=== PATIENT | male | born 1940 | race Caucasian/White ===

== ENCOUNTER 2018-01-11 06:55 | Inpatient (IN) ==
[2018-01-11] MEDS ORDERED: Nitroglycerin 0.4 MG TAB.SUBL SL ONE (07:08)
[2018-01-11] MEDS ORDERED: Aspirin 81 MG TAB.CHEW PO ONE (07:08)
[2018-01-11] MEDS ORDERED: 0.9 % Sodium Chloride 1,000 ML IVC ONE (07:10)
[2018-01-11] MEDS ORDERED: Ondansetron 4 MG/2 ML VIAL IVP ONE (07:10)
--- NOTE | 2018-01-11 07:14 | Emergency Department Note ---
Disposition Clinical Impression: Non-ST elevation HI (NSTEMI), COPD exacerbation Diarrhea Qualifiers: Diarrhea type: unspecified type Qualified Code(s): R19.7 - Diarrhea, unspecified Disposition: Admitted As Inpatient Condition: Fair Referrals: Margarito Abarca MD [Primary Care Provider] - Forms: ED Satisfaction Letter Time of Disposition: 09:33 General Adult HPI - General Chief complaint: ED Chest Pain Stated complaint: SOB Time Seen by Provider: 01/11/18 06:57 Source: patient, family Limitations: no limitations Nursing Notes Reviewed: Yes Vital Signs Reviewed: Yes - History of Present Illness HPI Narrative: Alert and oriented 77-year-old male presents to the emergency department for evaluation of chest pain, shortness of breath, nonproductive cough, generalized weakness, nausea, and diarrhea. He states that he has had intermittent episodes of substernal chest pain for the last 2 weeks however this became markedly worse yesterday evening into this morning. He describes the pain as a pressure and rated a 5 out of 10 on a 10 point scale. He denies any radiation or migration of this chest pain. This chest pain is made worsened with exertion and is somewhat alleviated with rest. He denies any known cardiac history. He denies any hemoptysis however states that the pain is somewhat worsened with deep inspiration. He has also had a nonproductive cough for the past 2-3 weeks. He was initially seen by his primary care provider and treated for a COPD exacerbation with both IM antibiotics and oral antibiotics. Shortly thereafter, he developed frequent loose stools. He presented to his PCP again, he began him on Flagyl however did not obtain a stool culture. He describes up to 10 episodes of loose stools per day. He denies any blood or mucus in the stools. He denies any associated abdominal pain but does complain of nausea. He denies any vomiting. He complains of generalized weakness but attributes this to possible dehydration from the multiple episodes of loose stools per day. Onset (ago): day(s) Location: chest Radiation: non-radiation Pain Severity: moderate Pain Scale: 5 Quality: other (pressure) Consistency: Worsening Improves with: nothing Worsens with: other (exertion) Associated symptoms: Reports: chest pain, cough, fever/chills (subjective), nausea/vomiting (nausea without vomiting), shortness of breath, weakness ( generalized), other (diarrhea) Treatments Prior to Arrival: other (Flagyl) - Related Data Home Medications Medication Instructions Recorded Confirmed Albuterol Sulfate [Proventil Hfa] 10/15/15 Aspirin [Adult Low Dose Aspirin EC] 81 mg PO DAILY 10/15/15 10/15/15 Budesonide/Formoterol 80/4.5 2 puff IH 10/15/15 [Symbicort 80/4.5] Ipratropium/Albuterol Neb [Duoneb] 10/15/15 Losartan Potassium [Cozaar] 10/15/15 Metoprolol [Lopressor] 10/15/15 Simvastatin [Zocor] 10/15/15 Vitamin D3/Folic Acid [Ortho D 10/15/15 3,775 Unit-1 mg Cap] Albuterol Sulfate [Proventil Hfa] 1 puff IH BID PRN 01/11/18 01/11/18 Aspirin [Lo-Dose Aspirin EC] 81 mg PO DAILY 01/11/18 01/11/18 Ipratropium/Albuterol Neb [Duoneb] 3 ml IH BID 01/11/18 01/11/18 Losartan Potassium [Cozaar] 50 mg PO DAILY 01/11/18 01/11/18 Metoprolol Succinate [Toprol Xl] 50 mg PO BID 01/11/18 01/11/18 Simvastatin [Zocor] 40 mg PO HS 01/11/18 01/11/18 Previous Rx's Medication Instructions Recorded Azithromycin [Zithromax] 250 mg PO Q24H #4 tablet 10/15/15 OxyCODONE/APAP 5/325 [Percocet 1 each PO Q8HR PRN #14 tablet 10/15/15 5/325 MG] predniSONE [Prednisone] 60 mg PO DAILY 5 Days tablet 10/15/15 Allergies Allergy/AdvReac Type Severity Reaction Status Date / Time No Known Allergies Allergy Verified 10/15/15 13:22 All systems ED: reviewed and negative except as stated. Constitutional: Reports: as per HPI, weakness (Generalized). Denies: fever, chills, weight change Eyes: Denies: eye pain, eye discharge, vision change ENT ED: Denies: ear pain, throat pain, dental pain, hearing loss, epistaxis, congestion, dysphagia Cardiovascular: Reports: as per HPI, chest pain, dyspnea on exertion. Denies: palpitations, edema, syncope Respiratory: Reports: as per HPI, cough, dyspnea, sputum production. Denies: wheezes, hemoptysis, stridor Gastrointestinal: Reports: as per HPI, nausea, diarrhea. Denies: abdominal pain , vomiting, constipation, hematemesis, melena, hematochezia Genitourinary: Denies: urgency, dysuria, frequency, hematuria Musculoskeletal: Denies: back pain, neck pain, arthralgia, myalgia Integumentary: Denies: rash, abrasion, lesions Neurological: Denies: headache, weakness, numbness, paresthesias, confusion, abnormal gait, vertigo Psychiatric: Denies: anxiety, depression, suicidal thoughts, homicidal thoughts , auditory hallucinations, visual hallucinations Endocrine: Denies: fatigue Hematological/Lymphatic: Denies: easy bleeding, easy bruising Allergic/Immunologic: Denies: facial swelling, urticaria Past Medical History - Past Medical History Attestation: Yes The following information was validated with the patient. Source: patient, nursing notes reviewed Medical history: Reports: hyperlipidemia, hypertension - Social History Smoking Status: Never smoker Smokeless Tobacco Status: No Alcohol use: Reports: occasionally Drug use: Reports: none Physical Exam - General Limitations: no limitations General appearance: alert, in no apparent distress - Head Head exam: atraumatic, normocephalic, normal inspection - Eye Eye exam: Present: normal appearance, PERRL, EOMI. Absent: nystagmus - ENT ENT exam: mucous membranes moist - Neck Neck exam: Present: normal inspection, full ROM, trachea midline - Chest Chest inspection: Present: normal inspection, symmetric chest wall rise - Respiratory Respiratory exam: Present: other (Lungs sounds coarse to auscultation, left lung base). Absent: respiratory distress, wheezes, stridor, accessory muscle use, prolonged expiratory phase - Cardiovascular Cardiovascular exam: Present: regular rate, normal rhythm, normal heart sounds - Abdominal Exam Abdominal exam: Present: soft, tenderness, hyperactive bowel sounds. Absent: distention, guarding, rebound, rigidity, trauma, mass, pulsatile mass Abdominal tenderness: Present: diffuse, moderate - Extremities Exam Extremities exam: Present: normal inspection, full ROM. Absent: tenderness, pedal edema - Neurological Exam Neurological exam: Present: alert, oriented X3 - Psychiatric Psychiatric exam: Present: normal affect, normal mood - Skin Skin exam: Present: warm, dry, intact, normal color. Absent: rash Course Course Narrative: 0850: I discussed this patient's case with Dr. Hernandez, ED attending. Dr. Hernandez has had [id number] evaluation with the patient, reviewed his laboratory and radiology results. He recommends initiating IV vancomycin and Zosyn for a COPD exacerbation, as the patient has failed outpatient therapy. 0925: I spoke with Dr. Cedeño, of the hospitalist services accepted the patient for admission to the hospitalist care. - Reevaluation(s) Reevaluation #1: The patient states significant improvement in pain after the administration of nitroglycerin. He now rates his pain a 2 out of 10 on a 10 point scale compared to his 5 out of 10 upon arrival. Time: 08:42 Vital Signs Temperature 99.1 F 01/11/18 07:01 Pulse Rate 121 01/11/18 07:01 Respiratory Rate 20 01/11/18 07:01 Blood Pressure 144/84 01/11/18 07:01 O2 Sat by Pulse Oximetry 97 01/11/18 07:01 Temperature 99.1 F 01/11/18 07:01 Pulse Rate 96 01/11/18 08:30 Respiratory Rate 18 01/11/18 08:30 Blood Pressure 116/76 01/11/18 08:30 O2 Sat by Pulse Oximetry 98 01/11/18 08:30 Oxygen Delivery Oxygen Delivery Nasal Cannula Medical Decision Making - Medical Records Medical records reviewed: Yes I reviewed the patient's medical records. - Lab Data Lab results reviewed: Yes I reviewed the patient's lab results. Lab results narrative: Laboratory Last Values WBC 15.4 K/mcL (4.3-11.1) H 01/11/18 07:25 RBC 4.59 M/mcL (4.19-5.50) 01/11/18 07:25 Hgb 13.4 g/dL (12.9-16.9) 01/11/18 07:25 Hct 40.8 % (37.5-50.1) 01/11/18 07:25 MCV 88.9 fL (83.0-100.0) 01/11/18 07:25 MCH 29.2 pg (28.0-33.3) 01/11/18 07:25 MCHC 32.8 g/dL (31.6-35.5) 01/11/18 07:25 RDW 13.6 % (11.5-14.5) 01/11/18 07:25 Plt Count 203 K/mcL (140-400) 01/11/18 07:25 MPV 9.8 fL (9.4-12.4) 01/11/18 07:25 Immature Gran % 0.5 % (0-4) 01/11/18 07:25 Seg Neutrophils % 82.4 % 01/11/18 07:25 Lymphocytes % 6.5 % 01/11/18 07:25 Monocytes % 10.3 % 01/11/18 07:25 Eosinophils % 0.1 % 01/11/18 07:25 Basophils % 0.2 % 01/11/18 07:25 Neutrophils # 12.7 K/mcL (1.6-8.9) H 01/11/18 07:25 Lymphocytes # 1.0 K/mcL (0.6-4.6) 01/11/18 07:25 Monocytes # 1.6 K/mcL (0.0-1.3) H 01/11/18 07:25 Eosinophils # 0.0 K/mcL (0.0-0.6) 01/11/18 07:25 Basophils # 0.0 K/mcL (0.0-0.2) 01/11/18 07:25 PT 12.3 Seconds (9.4-12.1) H 01/11/18 07:08 INR 1.1 01/11/18 07:08 APTT 30.3 Seconds (26.0-36.0) 01/11/18 07:08 D-Dimer 894 ng/mLFEU (0-500) H 01/11/18 07:08 Sodium 134 mEq/L (136-145) L 01/11/18 07:09 Potassium 3.7 mEq/L (3.5-5.1) 01/11/18 07:09 Chloride 105 mEq/L (98-107) 01/11/18 07:09 Carbon Dioxide 23 mEq/L (23-29) 01/11/18 07:09 BUN 12 mg/dL (8-23) 01/11/18 07:09 Creatinine 1.05 mg/dL (0.70-1.30) 01/11/18 07:09 Est GFR ( Amer) > 60 (> 60) 01/11/18 07:09 Est GFR (Non-Af Amer) > 60 (> 60) 01/11/18 07:09 BUN/Creatinine Ratio 11 (6-26) 01/11/18 07:09 Glucose 132 mg/dL (70-105) H 01/11/18 07:09 Calculated Osmolality 280 (280-300) 01/11/18 07:09 Lactic Acid 1.0 mmol/L (0.5-2.2) 01/11/18 07:05 Calcium 9.0 mg/dL (8.6-10.3) 01/11/18 07:09 Total Bilirubin 0.5 mg/dL (0.3-1.0) 01/11/18 07:09 AST 13 Units/L (13-39) 01/11/18 07:09 ALT 13 Units/L (7-52) 01/11/18 07:09 Alkaline Phosphatase 65 Units/L (34-104) 01/11/18 07:09 Troponin I 0.10 ng/mL (< 0.04) H* 01/11/18 07:09 B-Natriuretic Peptide 40 pg/mL (Less than 100) 01/11/18 07:08 Serum Total Protein 6.7 g/dL (6.4-8.9) 01/11/18 07:09 Albumin 3.9 g/dL (3.5-5.7) 01/11/18 07:09 Globulin 2.8 g/dL (2.4-3.5) 01/11/18 07:09 Albumin/Globulin Ratio 1.4 (1.1-2.2) 01/11/18 07:09 Lipase 16 Units/L (11-82) 01/11/18 07:09 Result diagrams: 01/11/18 07:25 01/11/18 07:09 Lab Results 01/11/18 01/11/18 01/11/18 Range/Units 07:05 07:08 07:08 WBC (4.3-11.1) K/mcL RBC (4.19-5.50) M/mcL Hgb (12.9-16.9) g/dL Hct (37.5-50.1) % MCV (83.0-100.0) fL MCH (28.0-33.3) pg MCHC (31.6-35.5) g/dL RDW (11.5-14.5) % Plt Count (140-400) K/mcL MPV (9.4-12.4) fL Immature Gran % (0-4) % Seg Neutrophils % % Lymphocytes % % Monocytes % % Eosinophils % % Basophils % % Neutrophils # (1.6-8.9) K/mcL Lymphocytes # (0.6-4.6) K/mcL Monocytes # (0.0-1.3) K/mcL Eosinophils # (0.0-0.6) K/mcL Basophils # (0.0-0.2) K/mcL PT 12.3 H (9.4-12.1) Seconds INR 1.1 APTT 30.3 (26.0-36.0) Seconds D-Dimer 894 H (0-500) ng/mLFEU Sodium (136-145) mEq/L Potassium (3.5-5.1) mEq/L Chloride (98-107) mEq/L Carbon Dioxide (23-29) mEq/L BUN (8-23) mg/dL Creatinine (0.70-1.30) mg/dL Est GFR ( Amer) (> 60) Est GFR (Non-Af Amer) (> 60) BUN/Creatinine Ratio (6-26) Glucose (70-105) mg/dL Calculated Osmolality (280-300) Lactic Acid 1.0 (0.5-2.2) mmol/L Calcium (8.6-10.3) mg/dL Total Bilirubin (0.3-1.0) mg/dL AST (13-39) Units/L ALT (7-52) Units/L Alkaline Phosphatase (34-104) Units/L Troponin I (< 0.04) ng/mL B-Natriuretic Peptide 40 (Less than 100) pg/mL Serum Total Protein (6.4-8.9) g/dL Albumin (3.5-5.7) g/dL Globulin (2.4-3.5) g/dL Albumin/Globulin Ratio (1.1-2.2) Lipase (11-82) Units/L 01/11/18 01/11/18 Range/Units 07:09 07:25 WBC 15.4 H (4.3-11.1) K/mcL RBC 4.59 (4.19-5.50) M/mcL Hgb 13.4 (12.9-16.9) g/dL Hct 40.8 (37.5-50.1) % MCV 88.9 (83.0-100.0) fL MCH 29.2 (28.0-33.3) pg MCHC 32.8 (31.6-35.5) g/dL RDW 13.6 (11.5-14.5) % Plt Count 203 (140-400) K/mcL MPV 9.8 (9.4-12.4) fL Immature Gran % 0.5 (0-4) % Seg Neutrophils % 82.4 % Lymphocytes % 6.5 % Monocytes % 10.3 % Eosinophils % 0.1 % Basophils % 0.2 % Neutrophils # 12.7 H (1.6-8.9) K/mcL Lymphocytes # 1.0 (0.6-4.6) K/mcL Monocytes # 1.6 H (0.0-1.3) K/mcL Eosinophils # 0.0 (0.0-0.6) K/mcL Basophils # 0.0 (0.0-0.2) K/mcL PT (9.4-12.1) Seconds INR APTT (26.0-36.0) Seconds D-Dimer (0-500) ng/mLFEU Sodium 134 L (136-145) mEq/L Potassium 3.7 (3.5-5.1) mEq/L Chloride 105 (98-107) mEq/L Carbon Dioxide 23 (23-29) mEq/L BUN 12 (8-23) mg/dL Creatinine 1.05 (0.70-1.30) mg/dL Est GFR ( Amer) > 60 (> 60) Est GFR (Non-Af Amer) > 60 (> 60) BUN/Creatinine Ratio 11 (6-26) Glucose 132 H (70-105) mg/dL Calculated Osmolality 280 (280-300) Lactic Acid (0.5-2.2) mmol/L Calcium 9.0 (8.6-10.3) mg/dL Total Bilirubin 0.5 (0.3-1.0) mg/dL AST 13 (13-39) Units/L ALT 13 (7-52) Units/L Alkaline Phosphatase 65 (34-104) Units/L Troponin I 0.10 H* (< 0.04) ng/mL B-Natriuretic Peptide (Less than 100) pg/mL Serum Total Protein 6.7 (6.4-8.9) g/dL Albumin 3.9 (3.5-5.7) g/dL Globulin 2.8 (2.4-3.5) g/dL Albumin/Globulin Ratio 1.4 (1.1-2.2) Lipase 16 (11-82) Units/L - Radiology Data Radiology results reviewed: Yes I reviewed the patient's radiology results. Chest X-Ray 01/11/18 07:08 IMPRESSION: Hyperaeration with underlying COPD suspected, with mild interstitial linear change noted at the left lung base which could be related to chronic reticular change, though acute superimposed pneumonitis cannot be excluded. D/ / Geovani Cortez MD / Geovani Cortez MD Interpreting Provider: Geovani Cortez MD - EKG Data EKG #1 EKG attestation: Yes I reviewed and interpreted this EKG. EKG results narrative: EKG reviewed by Dr. Hernandez as well. EKG shows a sinus tachycardia at a rate of 120 bpm. PA interval 161, QRS duration 93, QT/QTc interval 314/385. No ectopy noted. No ST elevation.
[2018-01-11 07:41] LABS: Basophils % 0.2 %; Eosinophils % 0.1 %; Hematocrit 40.8 % (37.5-50.1); Hemoglobin 13.4 g/dL (12.9-16.9); Immature Granulocytes % 0.5 % (0-4); Lymphocytes % 6.5 %; Mean Corpuscular HGB Conc 32.8 g/dL (31.6-35.5); Mean Corpuscular Hemoglobin 29.2 pg (28.0-33.3); Mean Corpuscular Volume 88.9 fL (83.0-100.0); Mean Platelet Volume 9.8 fL (9.4-12.4); Monocytes # 1.6 K/mcL (0.0-1.3); Monocytes % 10.3 %; Neutrophils # 12.7 K/mcL (1.6-8.9); Platelet Count 203 K/mcL (140-400); Red Blood Count 4.59 M/mcL (4.19-5.50); Red Cell Distribution Width 13.6 % (11.5-14.5); Segmented Neutrophils % 82.4 %
[2018-01-11 07:42] LABS: Alanine Aminotransferase 13 Units/L (7-52); Albumin 3.9 g/dL (3.5-5.7); Albumin/Globulin Ratio 1.4 (1.1-2.2); Alkaline Phosphatase 65 Units/L (34-104); Aspartate Amino Transferase 13 Units/L (13-39); BUN/Creatinine Ratio 11 (6-26); Bilirubin,Total 0.5 mg/dL (0.3-1.0); Blood Urea Nitrogen 12 mg/dL (8-23); Carbon Dioxide 23 mEq/L (23-29); Chloride 105 mEq/L (98-107); Globulin 2.8 g/dL (2.4-3.5); Glucose 132 mg/dL (70-105); Lipase 16 Units/L (11-82); Osmolality,Calculated 280 (280-300); Potassium 3.7 mEq/L (3.5-5.1); Sodium 134 mEq/L (136-145); Total Protein 6.7 g/dL (6.4-8.9); eGFR For African Americans > 60 (> 60); eGFR For Non-African Americans > 60 (> 60)
[2018-01-11 07:49] LABS: INR 1.1; Prothrombin Time 12.3 Seconds (9.4-12.1)
[2018-01-11 07:51] LABS: Activated Partial Thrombo Time 30.3 Seconds (26.0-36.0)
--- NOTE | 2018-01-11 08:02 | Emergency Department Note ---
START Narrative - START START: I examined this patient and my medical decision-making was reviewed with the PHARMACEUTICAL PHYSICIAN/PA/Advanced Practice Nurse/Resident Physician. I agree with the documented findings, disposition and treatment plan as described except to the extent set forth below. The patient does have shortness of breath and I did see him and spoke with him and his and he also has a history of recent diarrhea. He has been on antibiotics. C. difficile is ordered. Chest x-ray, labs are ordered. Medications and the patient will be admitted to the hospital. He does have history of COPD but does not use home oxygen. 0801 I did review the EKG showing sinus tachycardia with a rate of 120 bpm and inferior T-wave inversion. X-ray does show atelectasis versus infiltrate and patient will be treated with Zosyn and vancomycin as he has failed outpatient antibiotics. Patient will be admitted to the hospital. 0857 The patient's chest pain did recur and EKG is repeated and does show normal sinus rhythm with rate of [address] changes. Symptoms are concerning patient is being admitted for cardiac evaluation. 1253
[2018-01-11] MEDS ORDERED: Ipratropium/Albuterol Neb 3 ML IH ONE (08:06)
[2018-01-11] MEDS ORDERED: methylPREDNISolone 125 MG/2 ML VIAL IVP ONE (08:06)
[2018-01-11] MEDS ORDERED: Piperacillin/Tazobactam 3.375 GM in 0.9 % Sodium Chloride Mini Bag 100 ML IVPB ONE (08:49)
[2018-01-11 09:54] LABS: Bilirubin,Urine Negative (Negative); Blood,Urine Negative (Negative); Color,Urine Yellow (Yellow); Glucose,Urine (UA) Normal (Normal); Ketones,Urine Negative (Negative); Leukocyte Esterase,Urine Negative (Negative); Nitrite,Urine Negative (Negative); PH,Urine 5.5 pH Units (5.0-8.0); Protein,Urine Trace mg/dL (Neg-Trace); Urobilinogen,Urine Normal (Normal)
[2018-01-11 09:55] LABS: Clarity,Urine Clear (Clear)
[2018-01-11 09:57] LABS: Bacteria,Urine None Seen per hpf (None-Few); Hyaline Casts,Urine None Seen per lpf (None-Few); Squamous Epithelial Cell,Urine Many per lpf (None-Few); WBC,Urine 0-3 per hpf (0-3)
[2018-01-11] MEDS ORDERED: MetroNIDAZOLE 500 MG/100 ML 500 MG/100 ML BAG IVPB ONE (10:03)
[2018-01-11] MEDS: Vancomycin Oral Soln 250 MG/5 ML UDC PO SCH ×4 (10:42→21:56)
--- NOTE | 2018-01-11 11:10 | Internal Med History&Physical ---
Date of Encounter: 01/11/18 Time of Encounter: 10:53 Assessment and Plan (1) Non-ST elevation NE (NSTEMI) Current visit: Yes Status: Acute Patient to presented with exertional chest pain, CT showed severe artherolsclerosis, trop 0.10, will follow up trop, consult cardiology, (2) COPD exacerbation Current visit: Yes Status: Acute Patient has bilateral wheezing. failed Outpatient treatment will give IV Solu- Medrol and antibiotics (3) Bronchiolitis Current visit: Yes Status: Acute We will continue vancomycin and Zosyn, patient failed outpatient treatment (4) Liver lesion Current visit: Yes Status: Acute From CT scan will do MRI and MRCP (5) Lung nodule Current visit: Yes Status: Acute Need to [address] follow-up (6) Obesity (BMI 30.0-34.9) Current visit: Yes Status: Chronic (7) Diarrhea Current visit: Yes Status: Acute Patient did develop diarrhea after exposure to antibiotics, C diff is positive from ED, he failed oral flagyl from PCP. will treat with oral vancomycin Qualifiers: Diarrhea type: infectious Qualified Code(s): A09 - Infectious gastroenteritis and colitis, unspecified (8) Hypertension Current visit: Yes Status: Chronic Qualifiers: Hypertension type: essential hypertension Qualified Code(s): I10 - Essential (primary) hypertension Internal Medicine - H&P: HPI Chief complaint: chest pain Admitted From: Home Plans for Post Hospital Care: Home History of present illness: Mr. Barnard is a 77 year old male who has history of hypertension hyperlipidemia COPD not on home O2 presented to emergency room for 2 weeks of SOB and chest pain started last night. Chest pain started last evening, located in the middle chest, pressure-like 5 out of 10, exertional, any exercise make it worse and it lasted until this morning after he received a nitroglycerin. He also has dizziness diaphoresis. Patient denies history of CAD or stents but CT angiogram dose show severe atherosclerosis disease. Patient also has COPD exacerbation, over last a few weeks he has been more shortness of breath, associate with productive cough and white mucus. He received a course of oral steroids,and a course of antibiotics a months ago. Patient reported that he has on and off diarrhea for over last 2 weeks, but it got worse last night, he has been running stool every hour. His PCP started on flagyl a week ago. In the ED he had C. diff is positive. Patient will be admitted for C diff colitis. He also has elevated d-dimer, CT angio shows negative for PE, severe atherosclerosis. Broncholitis, and liver lesions and lung nodule 5.2 mm. Past Med Surg Social Fam HX - Past Medical History Medical history: hyperlipidemia, hypertension Psychiatric history: no psych history - Social History Smoking Status: Never smoker Smokeless Tobacco Status: No Alcohol use: occasionally Drug use: none Internal Medicine - H&P: Meds Albuterol Sulfate [Proventil Hfa] 10/15/15 [History] Aspirin [Adult Low Dose Aspirin EC] 81 mg PO DAILY 10/15/15 [History] Azithromycin [Zithromax] 250 mg PO Q24H #4 tablet 10/15/15 [Rx] Budesonide/Formoterol 80/4.5 [Symbicort 80/4.5] 2 puff IH 10/15/15 [History] Ipratropium/Albuterol Neb [Duoneb] 10/15/15 [History] Losartan Potassium [Cozaar] 10/15/15 [History] Metoprolol [Lopressor] 10/15/15 [History] OxyCODONE/APAP 5/325 [Percocet 5/325 MG] 1 each PO Q8HR PRN #14 tablet 10/15/15 [Rx] Simvastatin [Zocor] 10/15/15 [History] Vitamin D3/Folic Acid [Ortho D 3,775 Unit-1 mg Cap] 10/15/15 [History] predniSONE [Prednisone] 60 mg PO DAILY 5 Days tablet 10/15/15 [Rx] Albuterol Sulfate [Proventil Hfa] 1 puff IH BID PRN 01/11/18 [History] Aspirin [Lo-Dose Aspirin EC] 81 mg PO DAILY 01/11/18 [History] Ipratropium/Albuterol Neb [Duoneb] 3 ml IH BID 01/11/18 [History] Losartan Potassium [Cozaar] 50 mg PO DAILY 01/11/18 [History] Metoprolol Succinate [Toprol Xl] 50 mg PO BID 01/11/18 [History] Simvastatin [Zocor] 40 mg PO HS 01/11/18 [History] 3 Allergy/AdvReac Type Severity Reaction Status Date / Time No Known Allergies Allergy Verified 10/15/15 13:22 All Systems PM: A 10-system review of systems was performed and is negative for pertinent findings except as documented above in the HPI. - Constitutional Vitals: Temp Pulse Resp BP Pulse Ox 99.1 F 94 18 108/54 96 01/11/18 07:01 01/11/18 10:43 01/11/18 10:43 01/11/18 10:43 01/11/18 10:43 General appearance: Present: A&O X 3, pleasant, obese Exam: CONSTITUTIONAL: Patient appears as an age appropriate male well developed, in no acute distress. EYES Clear sclerae, bilateral pupils are equal, reactive to light and accommodation. Extraocular movements are intact RESPIRATORY: No accessory muscle use, bilateral clear to auscultation, no wheezing, no crackles/rales. CARDIOVASCULAR: Regular heart rate, normal S1 and S2, no murmurs GASTROINTESTINAL: bowel sounds present, soft, no tenderness. No hepatosplenomegaly. No bilateral CVA tenderness MUSCULOSKELETAL: Joints in normal range of motion, no clubbing, no edema, no cyanosis. Bilateral peripheral pulses 2+ LYMPHATIC no lymphadenopathy in neck, groin and axilla bilaterally, no thyromegaly. NEUROLOGIC: CN II to XII are grossly intact, no focal neurological deficit. Deep tendon reflexes 2+ bilaterally. Normal light touch sensation to upper and lower extremity PSYCHIATRIC: Oriented x3, with good insight, mood is euthymic. No hallucinations or delusions. SKIN: Skin warm and dry, no rashes, no open wound. Internal Med - H&P Results - Labs CBC & Chem 7: 01/11/18 07:25 01/11/18 07:09 Labs: Short CBC 01/11/18 Range/Units 07:25 WBC 15.4 H (4.3-11.1) K/mcL Hgb 13.4 (12.9-16.9) g/dL Hct 40.8 (37.5-50.1) % Plt Count 203 (140-400) K/mcL Neutrophils # 12.7 H (1.6-8.9) K/mcL BMP 01/11/18 07:09 Sodium 134 L Potassium 3.7 Chloride 105 Carbon Dioxide 23 BUN 12 Creatinine 1.05 Glucose 132 H Calcium 9.0 Cardiac Enzymes 01/11/18 Range/Units 07:09 Troponin I 0.10 H* (< 0.04) ng/mL Liver Function 01/11/18 Range/Units 07:09 Total Bilirubin 0.5 (0.3-1.0) mg/dL AST 13 (13-39) Units/L ALT 13 (7-52) Units/L Alkaline Phosphatase 65 (34-104) Units/L Albumin 3.9 (3.5-5.7) g/dL Urine 01/11/18 Range/Units 09:08 Urine Color Yellow (Yellow) Urine Clarity Clear (Clear) Urine pH 5.5 (5.0-8.0) pH Units Ur Specific [place] 1.030 H (1.010-1.025) Urine Protein Trace (Neg-Trace) mg/dL Urine Glucose (UA) Normal (Normal) mg/dL - Impressions ITS Impressions Chest X-Ray 01/11/18 07:08 IMPRESSION: Hyperaeration with underlying COPD suspected, with mild interstitial linear change noted at the left lung base which could be related to chronic reticular change, though acute superimposed pneumonitis cannot be excluded. D/ / Geovani Cortez MD / Geovani Cortez MD Interpreting Provider: Geovani Cortez MD Abdomen/Pelvis CT 01/11/18 10:00 IMPRESSION: No pulmonary emboli, thoracic or abdominal aortic aneurysm or dissection. Atherosclerotic disease is seen diffusely, with heavy coronary artery involvement. There is a small 5.2 mm pulmonary nodule in the right middle lobe, for which further follow-up is recommended based on Fleischner criteria below. Bronchial thickening seen in the lower lobes bilaterally with mild ground-glass change which can be seen with bronchiolitis/ atypical infection. No confluent area of pneumonia. Small subcapsular low-attenuation lesions seen in the liver measuring 1.1 cm. There is also a branching area of low attenuation seen in the left hepatic lobe as well as in the region of the caudate lobe. Uncertain if this may be related to focal biliary dilation. An obstructive process cannot be excluded. Recommend further evaluation with an MRI of the liver with and without contrast, as well as MRCP to exclude an underlying neoplastic process. Cholelithiasis. Benign adrenal adenoma for which no further follow-up is felt necessary. RECOMMENDATIONS: Fleischner Society guidelines for follow-up and management of incidentally detected pulmonary nodules: Single Solid Nodule: Nodule size less than 6 mm In a low-risk patient, no routine follow-up. In a high-risk patient, optional CT at 12 months. - Low risk patients include individuals with minimal or absent history of smoking and other known risk factors. - High risk patients include individuals with a history or smoking or known risk factors. Radiology 2017 http://pubs.rsna.org/doi/full/10.1148/radiol.[email or web address] D/ / Geovani Cortez MD / Geovani Cortez MD Interpreting Provider: Geovani Cortez MD Chest CTA 01/11/18 10:00 IMPRESSION: No pulmonary emboli, thoracic or abdominal aortic aneurysm or dissection. Atherosclerotic disease is seen diffusely, with heavy coronary artery involvement. There is a small 5.2 mm pulmonary nodule in the right middle lobe, for which further follow-up is recommended based on Fleischner criteria below. Bronchial thickening seen in the lower lobes bilaterally with mild ground-glass change which can be seen with bronchiolitis/ atypical infection. No confluent area of pneumonia. Small subcapsular low-attenuation lesions seen in the liver measuring 1.1 cm. There is also a branching area of low attenuation seen in the left hepatic lobe as well as in the region of the caudate lobe. Uncertain if this may be related to focal biliary dilation. An obstructive process cannot be excluded. Recommend further evaluation with an MRI of the liver with and without contrast, as well as MRCP to exclude an underlying neoplastic process. Cholelithiasis. Benign adrenal adenoma for which no further follow-up is felt necessary. RECOMMENDATIONS: Fleischner Society guidelines for follow-up and management of incidentally detected pulmonary nodules: Single Solid Nodule: Nodule size less than 6 mm In a low-risk patient, no routine follow-up. In a high-risk patient, optional CT at 12 months. - Low risk patients include individuals with minimal or absent history of smoking and other known risk factors. - High risk patients include individuals with a history or smoking or known risk factors. Radiology 2017 http://pubs.rsna.org/doi/full/10.1148/radiol.3867737533 D/ / Geovani Cortez MD / Geovani Cortez MD Interpreting Provider: Geovani Cortez MD
[2018-01-11] MEDS ORDERED: Naloxone 0.4 MG/ML INJ IVP PRN (11:31)
[2018-01-11] MEDS ORDERED: *HR* OxyCODONE/APAP 5/325 TABLET PO PRN (12:31)
--- NOTE | 2018-01-11 14:03 | Cardiology Consult Note ---
<Leyla Brady - Last Filed: 01/11/18 15:28> Date of Encounter: 01/11/18 Time of Encounter: 13:52 Assessment and Plan (1) Chest pain Current Visit: Yes Status: Acute Chest pain at rest, pressure like, non radiating, lasting hours, relieved by nitro. Admitted shortness of breath and diaphoresis. troponin 0.1, 0.06 01/11/2018 EKG demonstrated misplaced limb leads, t wave inversion in lateral leads SINCERE score 4 CTA: Atherosclerosis diffusely with heavy coronary artery involvement. No PE PMH: HTN, HLD, COPD Brother had WA at 74yo. Former smoker -Recommend [facility] tomorrow since he has atypical chest pain, risk factors for CAD, elevated troponin, atherosclerosis demonstrated by CTA. Will discuss with patient R/B/A for [facility] and see if they are agreeable. -NPO midnight -order echo -nitro as needed Qualifiers: Qualified Code(s): R07.9 - Chest pain, unspecified (2) Elevated troponin Current Visit: Yes Status: Acute troponin 0.1, 0.6 -continue to monitor (3) Diarrhea Current Visit: Yes Status: Acute Tested C.diff positive in ED. On antibiotics 1 month ago for COPD exac and then 2 weeks later developed watery diarrhea for which he was placed on flagyl and did not improve diarrhea. Failed treatment with flagyl, still has diarrhea. -started on oral vancomycin. management per primary team Qualifiers: Diarrhea type: infectious Qualified Code(s): A09 - Infectious gastroenteritis and colitis, unspecified (4) COPD exacerbation Current Visit: Yes Status: Acute Increased shortness of breath, coughing with sputum production History of COPD. Quit smoking 15yr ago. -currently being treated with zosyn and vancomycin. Management per primary team (5) Hypertension Current Visit: Yes Status: Chronic HTN. BP controlled. -will continue to monitor -continue asa, losartan, toprol, simvistatin Qualifiers: Hypertension type: essential hypertension Qualified Code(s): I10 - Essential (primary) hypertension Discussion w patient/family: The assessment and plan as outlined above was discussed with the patient and/or family members who expressed understanding and agreement. All questions were answered. Thank you for involving us in the care of your patient. Please call with any questions. History of Present Illness Consult date: 01/11/18 Requesting physician: Lita Cedeño Consult reason: NSTEMI Chief complaint: chest pain History of present illness: Mr. Barnard is a 77 year old male with PMH HTN, HLD, COPD who presented to [facility] complaining of chest pain that started yesterday evening while he was eating dinner. It was pressure like and did not radiate. He stated it came on suddenly and he became diaphoretic and short of breath. It was worsened with exertion and never went away until he decided to go to the ED at 4am. He was given nitro and it relieved the pain but it is still present minimally. He reports increased shortness of breath, coughing with sputum production, chills. He has never had chest pain before. He stated he is active golfing, house chores, working with wood. He quit smoking 15yr ago and has about 2-3 beers a week. His brother had an WA at 74yo. He denied having WA, PE/DVT, stress test, TTE. Noted, 1 month ago he went to [employer] [facility] due to increased shortness of breath and coughing concerning for COPD exacerbation and pneumonia so he was given 3 antibiotic shots and was told to return in 3 days for 2 more antibiotic shots. 2 weeks later he developed watery diarrhea multiple times a day and went to a different physician and was tested for C.diff and prescribed flagyl. He reports the diarrhea has not improved and he has watery diarrhea almost every hour. In the ED troponin 0.1. C.diff positive DDimer 894 CTA- negative for PE. Atherosclerosis diffusely with heavy coronary artery involvement. Past Med Surg Social Fam HX - Past Medical History Medical history: hyperlipidemia, hypertension Psychiatric history: no psych history - Social History Smoking Status: Never smoker Smokeless Tobacco Status: No Alcohol use: occasionally Drug use: none Medications and Allergies Albuterol Sulfate [Proventil Hfa] 10/15/15 [History] Aspirin [Adult Low Dose Aspirin EC] 81 mg PO DAILY 10/15/15 [History] Azithromycin [Zithromax] 250 mg PO Q24H #4 tablet 10/15/15 [Rx] Budesonide/Formoterol 80/4.5 [Symbicort 80/4.5] 2 puff IH 10/15/15 [History] Ipratropium/Albuterol Neb [Duoneb] 10/15/15 [History] Losartan Potassium [Cozaar] 10/15/15 [History] Metoprolol [Lopressor] 10/15/15 [History] OxyCODONE/APAP 5/325 [Percocet 5/325 MG] 1 each PO Q8HR PRN #14 tablet 10/15/15 [Rx] Simvastatin [Zocor] 10/15/15 [History] Vitamin D3/Folic Acid [Ortho D 3,775 Unit-1 mg Cap] 10/15/15 [History] predniSONE [Prednisone] 60 mg PO DAILY 5 Days tablet 10/15/15 [Rx] Albuterol Sulfate [Proventil Hfa] 1 puff IH BID PRN 01/11/18 [History] Aspirin [Lo-Dose Aspirin EC] 81 mg PO DAILY 01/11/18 [History] Ipratropium/Albuterol Neb [Duoneb] 3 ml IH BID 01/11/18 [History] Losartan Potassium [Cozaar] 50 mg PO DAILY 01/11/18 [History] Metoprolol Succinate [Toprol Xl] 50 mg PO BID 01/11/18 [History] Simvastatin [Zocor] 40 mg PO HS 01/11/18 [History] 3 Allergy/AdvReac Type Severity Reaction Status Date / Time No Known Allergies Allergy Verified 10/15/15 13:22 All Systems Review: The remainder of the systems were reviewed and are negative - Constitutional Constitutional: chills - EENT Eyes: no blurred vision - Cardiovascular Cardiovascular: chest pain at rest, chest pain with exertion, diaphoresis, orthopnea, no palpitations, no syncope - Gastrointestinal Gastrointestinal: diarrhea, nausea Physical Examination Vital Signs, Last 4 Hours Resp BP 01/11/18 12:55 20 122/72 General: Conversant, No Apparent Distress HEENT: Atraumatic, Mucus Membranes Moist Neck: No JVD Cardiac: Reg Rate and Rhythm, Normal S1 and S2 Lungs: Normal Breath Sounds, No Wheeze, Rales, Rhonchi Neuro: Alert and responsive Abdomen: Soft, Non-Tender Skin: No rashes noted on visualized skin Musculoskeletal: No Chest Wall Tenderness Extremities: No Edema Results 01/11/18 07:25 01/11/18 07:09 Consult Discharge Plan - Plan Referrals: Margarito Abarca MD [Primary Care Provider] - <Jerica Green - Last Filed: 01/11/18 17:02> Date of Encounter: 01/11/18 - Attending Attestation I stopped by to see patient twice - not in room. I have discussed the patient with the medical transport specialist. I will plan to discuss with patient the plan and examine him. Preliminarily recommendations - Presents with atypical chest discomfort after eating Elevated troponin 0.1 ECG changes laterally CTA demonstrates significant atherosclerotic burden in the coronary arteries Risk factors include male gender, HTN, HPL, FH, remote smoking. In this setting of NSTEMI, would recommend proceeding with LHC. Renal function is normal. Hgb/Plt acceptable. Recommend continuing heparin. Keep NPO. To discuss with patient in the AM. Assessment and Plan Discussion w patient/family: The assessment and plan as outlined above was discussed with the patient and/or family members who expressed understanding and agreement. All questions were answered. Thank you for involving us in the care of your patient. Please call with any questions. History of Present Illness History of present illness: Mr. Barnard is a 77 year old male All Systems Review: The remainder of the systems were reviewed and are negative Results 01/11/18 07:25 01/11/18 07:09 Lab Results 01/11/18 13:21 Troponin I 0.06 H*
[2018-01-11] MEDS: methylPREDNISolone 125 MG/2 ML VIAL IVP SCH ×3 (14:06→23:49)
[2018-01-11] MEDS: Budesonide/Formoterol 80/4.5 MDI IH SCH ×2 (14:31→22:39)
[2018-01-11] MEDS: Piperacillin/Tazobactam 3.375 GM in 0.9 % Sodium Chloride Mini Bag 100 ML IVPB SCH ×2 (18:03→23:49)
[2018-01-11] MEDS: Metoprolol XL (24 HR) Succ 50 MG TAB.ER.24H PO SCH (20:39)
[2018-01-11] MEDS ORDERED: Perflutren Lipid Microsphere 2 ML VIAL ONE (21:53)
[2018-01-11] MEDS: Ipratropium/Albuterol Neb 3 ML IH SCH (22:39)
[2018-01-12 02:12] LABS: Hemoglobin 12.1 g/dL (12.9-16.9); Mean Corpuscular HGB Conc 32.7 g/dL (31.6-35.5); Mean Corpuscular Volume 88.7 fL (83.0-100.0); Platelet Count 192 K/mcL (140-400); Red Blood Count 4.17 M/mcL (4.19-5.50); Red Cell Distribution Width 13.6 % (11.5-14.5)
[2018-01-12 02:26] LABS: BUN/Creatinine Ratio 13 (6-26); Blood Urea Nitrogen 15 mg/dL (8-23); Calcium 8.7 mg/dL (8.6-10.3); Carbon Dioxide 25 mEq/L (23-29); Chloride 106 mEq/L (98-107); Chol/HDL Ratio 3.1 (0-4.9); Cholesterol 169 mg/dL (< 200); Glucose 197 mg/dL (70-105); HDL Cholesterol 54 mg/dL (40-59); LDL Cholesterol,Calculated 104 mg/dL (0-99); Osmolality,Calculated 290 (280-300); Potassium 4.2 mEq/L (3.5-5.1); Sodium 137 mEq/L (136-145); Triglycerides 56 mg/dL (< 150); eGFR For African Americans > 60 (> 60); eGFR For Non-African Americans > 60 (> 60)
[2018-01-12] MEDS: methylPREDNISolone 125 MG/2 ML VIAL IVP SCH ×3 (05:25→17:48)
[2018-01-12] MEDS ORDERED: Aminoglycoside Consult 1 EACH MC ONE (09:41)
--- NOTE | 2018-01-12 10:02 | Internal Med Progress Note ---
Date of Encounter: 01/12/18 Time of Encounter: 10:01 - Assessment and plan (1) Non-ST elevation [place] (NSTEMI) Current Visit: Yes Status: Acute Assessment and plan: 1 no chest pain at this time, patient is waiting for left heart catheter today Cardiology has been consulted Continue cardiac monitoring Continue with aspirin beta gemam statin (2) Bronchiolitis Current Visit: Yes Status: Acute Assessment and plan: Presently appears stable lung sounds are clear continue with azithromycin we will taper down Solu-Medrol oxygen as needed Blood cultures were obtained--negative no growth Continue to monitor white count No fevers (3) COPD exacerbation Current Visit: No Status: Chronic Assessment and plan: Presently stable at this time no wheezing Oxygen saturations are stable-titrate oxygen as needed maintain SPO2 very 92% Continue with bronchodilators and steroids taper (4) Diarrhea Current Visit: Yes Status: Acute Assessment and plan: Patient developed diarrhea after exposure to antibiotics. C. difficile is positive from the ER. He failed outpatient oral Flagyl from his PCP. Continue to treat with oral vancomycin. Contact precautions-he has not had a stool since yesterday Qualifiers: Diarrhea type: infectious Qualified Code(s): A09 - Infectious gastroenteritis and colitis, unspecified (5) Liver lesion Current Visit: Yes Status: Acute Assessment and plan: Noted liver lesion on CT scan-LFTs within normal limits Abdominal MR I with and without contrast IMPRESSION: 1. Nonenhancing 1.2 cm lesion in segment IV of liver likely surgical sales representative of a cyst. 2. Focal intrahepatic biliary ductal dilation in the left liver. No obstructing mass identified. No choledocholithiasis. Consider choledochal cyst (type V) or stricture of the bile ducts. No gross obstructing mass. 3. Benign left adrenal adenoma. Follow-up as outpatient (6) Lung nodule Current Visit: Yes Status: Acute Assessment and plan: CT follow-up in 12 months per Fleischner Society guidelines (7) Hypertension Current Visit: No Status: Chronic Assessment and plan: Presently controlled we will continue with home medications Qualifiers: Hypertension type: essential hypertension Qualified Code(s): I10 - Essential (primary) hypertension (8) Obesity (BMI 30.0-34.9) Current Visit: Yes Status: Chronic Assessment and plan: Encourage lifestyle changes (9) DVT prophylaxis Current Visit: No Status: Chronic Assessment and plan: SCD - Subjective Interval history: Patient states that his belly is sore from BM, however he has not had any stool since yesterday. He has no CP. He is to go for heart cath today. - Constitutional Vitals: Temp Pulse Resp BP Pulse Ox 97.5 F L 84 16 137/74 97 01/12/18 07:39 01/12/18 07:39 01/12/18 07:39 01/12/18 07:39 01/12/18 07:39 General appearance: Present: A&O X 3, pleasant, obese - Head Head exam: Present: atraumatic, normocephalic - Eye Eye exam: Present: PERRL, conjuntiva pink, sclera anicteric Pupils: Present: PERRL - Neck Neck exam general surgery: Present: supple, trachea midline. Absent: lymphadenopathy - Respiratory Respiratory exam: Present: CTAB. Absent: accessory muscle use, rales, rhonchi, wheezes - Cardiovascular Cardiovascular exam: Present: RRR, +S1, +S2. Absent: diastolic murmur, gallop, rubs, systolic murmur - GI/Abdominal GI/Abdominal exam: Present: normal bowel sounds, soft, no peritoneal signs. Absent: distended, tenderness - Extremities Exam Extremities exam: Present: warm, radial pulses palpable and symmetrical. Absent : calf tenderness, cyanotic, pedal edema - Neurological Exam Neurological exam: Present: CN II-XII intact, oriented X3, no focal deficits. Absent: pronater drift, facial droop, speech deficit - Skin Skin exam: Present: dry, intact Internal Medicine: Result - Labs CBC & Chem 7: 01/12/18 01:34 01/12/18 01:34 Labs: Short CBC 01/12/18 Range/Units 01:34 WBC 15.0 H (4.3-11.1) K/mcL Hgb 12.1 L (12.9-16.9) g/dL Hct 37.0 L (37.5-50.1) % Plt Count 192 (140-400) K/mcL BMP 01/12/18 01:34 Sodium 137 Potassium 4.2 Chloride 106 Carbon Dioxide 25 BUN 15 Creatinine 1.12 Glucose 197 H Calcium 8.7 Cardiac Enzymes 01/11/18 01/11/18 01/12/18 Range/Units 13:21 19:24 01:34 Troponin I 0.06 H* 0.05 H* 0.04 H* (< 0.04) ng/mL - ABG Interpretation ABG results: PT/INR, D-dimer PT 12.3 Seconds (9.4-12.1) H 01/11/18 07:08 D-Dimer 894 ng/mLFEU (0-500) H 01/11/18 07:08 - Impressions Impressions Abdomen MRI 01/11/18 11:39 IMPRESSION: 1. Nonenhancing 1.2 cm lesion in segment IV of liver likely surgical sales representative of a cyst. 2. Focal intrahepatic biliary ductal dilation in the left liver. No obstructing mass identified. No choledocholithiasis. Consider choledochal cyst (type V) or stricture of the bile ducts. No gross obstructing mass. 3. Benign left adrenal adenoma. D/ / 01/11/2018 17:44:15 Familia Duncan MD / kalyani Interpreting Provider: Familia Duncan MD - Diagnostic Studies Other Images Additional comments: Foreign Body Localization X-Ray 01/11/18 00:00 IMPRESSION: No evidence of metallic foreign body within the orbits. D/ / Trae Chatterjee MD / Trae Chatterjee MD Interpreting Provider: Trae Chatterjee MD Chest X-Ray 01/11/18 07:08 IMPRESSION: Hyperaeration with underlying COPD suspected, with mild interstitial linear change noted at the left lung base which could be related to chronic reticular change, though acute superimposed pneumonitis cannot be excluded. D/ / Geovani Cortez MD / Geovani Cortez MD Interpreting Provider: Geoavni Cortez MD Abdomen/Pelvis CT 01/11/18 10:00 IMPRESSION: No pulmonary emboli, thoracic or abdominal aortic aneurysm or dissection. Atherosclerotic disease is seen diffusely with heavy coronary artery involvement. There is a small 5.2 mm pulmonary nodule in the right middle lobe for which further follow-up is recommended based on Fleischner criteria below. Bronchial thickening seen in the lower lobes bilaterally with mild ground-glass change which can be seen with bronchiolitis/atypical infection. No confluent area of pneumonia. Small subcapsular low-attenuation lesion seen in the liver measuring 1.1 cm. There is also a branching area of low attenuation seen in the left hepatic lobe as well as in the region of the caudate lobe. Uncertain if this may be related to focal biliary dilation. An obstructive process cannot be excluded. Recommend further evaluation with an MRI of the liver with and without contrast as well as MRCP to exclude an underlying neoplastic process. Cholelithiasis. Benign adrenal adenoma for which no further follow-up is felt necessary. RECOMMENDATIONS: Fleischner Society guidelines for follow-up and management of incidentally detected pulmonary nodules: Single Solid Nodule: Nodule size less than 6 mm In a low-risk patient, no routine follow-up. In a high-risk patient, optional CT at 12 months. - Low risk patients include individuals with minimal or absent history of smoking and other known risk factors. - High risk patients include individuals with a history or smoking or known risk factors. Radiology 2017 http://pubs.rsna.org/doi/full/10.1148/radiol.4217085336 D/ / 01/11/2018 10:56:38 Geovani Cortez MD / kalyani Interpreting Provider: Geovani Cortez MD Chest CTA 01/11/18 10:00 IMPRESSION: No pulmonary emboli, thoracic or abdominal aortic aneurysm or dissection. Atherosclerotic disease is seen diffusely with heavy coronary artery involvement. There is a small 5.2 mm pulmonary nodule in the right middle lobe for which further follow-up is recommended based on Fleischner criteria below. Bronchial thickening seen in the lower lobes bilaterally with mild ground-glass change which can be seen with bronchiolitis/atypical infection. No confluent area of pneumonia. Small subcapsular low-attenuation lesion seen in the liver measuring 1.1 cm. There is also a branching area of low attenuation seen in the left hepatic lobe as well as in the region of the caudate lobe. Uncertain if this may be related to focal biliary dilation. An obstructive process cannot be excluded. Recommend further evaluation with an MRI of the liver with and without contrast as well as MRCP to exclude an underlying neoplastic process. Cholelithiasis. Benign adrenal adenoma for which no further follow-up is felt necessary. RECOMMENDATIONS: Fleischner Society guidelines for follow-up and management of incidentally detected pulmonary nodules: Single Solid Nodule: Nodule size less than 6 mm In a low-risk patient, no routine follow-up. In a high-risk patient, optional CT at 12 months. - Low risk patients include individuals with minimal or absent history of smoking and other known risk factors. - High risk patients include individuals with a history or smoking or known risk factors. Radiology 2017 http://pubs.rsna.org/doi/full/10.1148/radiol.0166799708 D/ / 01/11/2018 10:56:38 Geovani Cortez MD / kalyani Interpreting Provider: Geovani Cortez MD Abdomen MRI 01/11/18 11:39 IMPRESSION: 1. Nonenhancing 1.2 cm lesion in segment IV of liver likely surgical sales representative of a cyst. 2. Focal intrahepatic biliary ductal dilation in the left liver. No obstructing mass identified. No choledocholithiasis. Consider choledochal cyst (type V) or stricture of the bile ducts. No gross obstructing mass. 3. Benign left adrenal adenoma. D/ / 01/11/2018 17:44:15 Familia Duncan MD / kalyani Interpreting Provider: Familia Duncan MD Echocardiogram 01/11/18 15:39 Impressions: LVEF 60-65%. Mild left ventricular diastolic dysfunction. Definity echo contrast was used. Normal right ventricular structure and function. No significant valvular dysfunction. No pulmonary hypertension. Left Ventricular Wall Motion: Rest Echo Findings The mid inferior lateral and basal inferior lateral hall were not visualized. All other wall segments showed normal motion. Findings: Study Quality * Technically sub-optimal due to body habitus. ECG Findings * Normal sinus rhythm. Left Ventricle * LVEF 60-65%. * Mild left ventricular diastolic dysfunction. * Normal LV chamber size, wall thickness and function. * Definity echo contrast was used. Right Ventricle * Normal right ventricular structure and function. Left Atrium * Normal left atrial size. Right Atrium * Normal right atrial size. Aortic Valve * No aortic regurgitation. * No aortic stenosis. * Aortic valve not well visualized. Mitral Valve * No mitral regurgitation. * Normal mitral valve structure. * No mitral stenosis. Tricuspid Valve * Tricuspid valve not well visualized. * Trace tricuspid regurgitation. * Estimated RA pressure is 3 mmHg. * Estimated RVSP is 32 mmHg. * No pulmonary hypertension. Pulmonic Valve * Pulmonic valve is not well visualized. * No pulmonic stenosis. * No pulmonic regurgitation. Pulmonary Artery * Pulmonary artery not well visualized. Aorta * Not optimally evaluated. Pericardium * There is no pericardial effusion present. Interatrial Septum * No evidence of PFO by color Doppler. IVC * The IVC is not dilated. Consult Discharge Plan - Plan Referrals: Margarito Abarca MD [Primary Care Provider] -
--- NOTE | 2018-01-12 10:21 | Event Note ---
Date of Encounter: 01/12/18 Time of Encounter: 08:00 - Cardiology Event Note Mr. Barnard denies recurrent chest pain last night. [facility] recommended due to elevated troponin, chest discomfort, and CT showing athersclerosis. [facility] R/B/A discussed and he agrees to proceed.
[2018-01-12] MEDS: Aspirin Enteric Coated 81 MG Tablet PO SCH (10:27)
[2018-01-12] MEDS: Metoprolol XL (24 HR) Succ 50 MG TAB.ER.24H PO SCH ×2 (10:27→20:58)
[2018-01-12] MEDS: Vancomycin Oral Soln 250 MG/5 ML UDC PO SCH ×4 (10:27→20:58)
[2018-01-12] MEDS: Piperacillin/Tazobactam 3.375 GM in 0.9 % Sodium Chloride Mini Bag 100 ML IVPB SCH ×3 (10:30→23:07)
[2018-01-12] MEDS: Budesonide/Formoterol 80/4.5 MDI IH SCH ×2 (10:50→20:15)
[2018-01-12] MEDS: Ipratropium/Albuterol Neb 3 ML IH SCH ×2 (10:51→20:15)
[2018-01-12] MEDS ORDERED: *HR* Heparin 10,000 UNIT/10 ML VIAL ONE ×2 (12:50→15:05)
[2018-01-12] MEDS ORDERED: Heparin 1,000 UNITS/500 mL 500 ML ONE ×2 (12:50→15:05)
[2018-01-12] MEDS ORDERED: Nitroglycerin 1,000 MCG/10 ML VIAL IV ONE ×2 (12:50→15:05)
[2018-01-12] MEDS ORDERED: 0.9 % Sodium Chloride 1,000 ML ONE ×3 (12:50→15:05)
[2018-01-12] MEDS ORDERED: ISOVUE-370 200 ML INFUS..BTL IV ONE ×2 (12:50→15:05)
--- NOTE | 2018-01-12 13:23 | Pre-Sedation Evaluation ---
Pre-sedation evaluation - Pre-sedation checklist Date of procedure: 01/12/18 Procedure: Left heart cath Recent Vitals: Last Vital Signs Temp 97.8 F 01/12/18 12:13 Pulse 85 01/12/18 12:13 Resp 16 01/12/18 12:13 BP 138/77 01/12/18 12:13 Pulse Ox 97 01/12/18 12:13 H&P (including ROS) documented in medical record: Yes Previous reaction to sedatives/anesthetics: No Dietary Status: NPO after Midnight Airway Assessment: Patient can open mouth completely, TMJ function normal Dentition: No loose teeth or bridges Possible difficult airway: No ASA Classification *see protocol: CLASS III-Severe systemic disease Plan of Care: Pt appropriate candidate for procedure/moderate/conscious sedation , Risks/benefits of procedure/sedation discussed w/ patient/family, If not NPO; Risk of intake outweiged by necessity to perform procedure
[2018-01-12] MEDS ORDERED: *HR* Midazolam HCl 2 MG/2 ML VIAL ONE ×3 (13:29→15:39)
--- NOTE | 2018-01-12 15:52 | Electrocardiograph Report ---
[address] [address] Test Date: 2018-01-11 Pat Name: Tian Barnard Department: 102 Room: 3B Gender: M Inside Account Representative: Rahul : 1940 Requested By: Martín Hernandez Order Number: [id number] Reading MD: Jerica Green Measurements Intervals [place] Rate: 86 P: 61 AL: 183 QRS: -59 QRSD: 85 T: -30 QT: 302 QTc: 345 Interpretive Statements SINUS RHYTHM WITH OCCASIONAL SUPRAVENTRICULAR PREMATURE COMPLEXES LEFT AXIS DEVIATION [QRS AXIS < -30] Electronically Signed On 01-12-2018 15:51:08 EDT by Jerica Green
--- NOTE | 2018-01-12 16:03 | Electrocardiograph Report ---
[address] [address] Test Date: 2018-01-11 Pat Name: Tian Barnard Department: 103 Room: 3B Gender: M Multicultural Manager: AKIN : 1940 Requested By: Aleksandr Carbone Order Number: [id number] Reading MD: Jerica Green Measurements Intervals [place] Rate: 120 P: -22 VA: 161 QRS: 125 QRSD: 93 T: -22 QT: 314 QTc: 385 Interpretive Statements SINUS TACHYCARDIA Electronically Signed On 01-12-2018 16:02:17 EDT by Jerica Green
[2018-01-12] MEDS ORDERED: *HR* Morphine 2 MG/ML SYRINGE ONE (16:12)
[2018-01-12] MEDS ORDERED: Nitroglycerin Spray 4.9 GM BOTTLE ONE (16:23)
--- NOTE | 2018-01-12 16:58 | Invasive Diagnostic Lab Proc ---
Name: Tian Barnard Kyle Date of Study: 01/12/2018 Date: 1940 Ht: 70.9in Medical Record#: [id number] Age: 77 Wt: 235.89lb Gender: Male BSA: 2.26 Order #: [id number] BMI: 33.02 Physicians Procedure Physician: Geovanny Hernández DO Referring MD: Referring MD: Staff Name Position Time In Sites, Blanquita RT (R) Monitor 01:31 PM Lisy Valdez RT Scrub 01:31 PM Manuel An RN Online Marketer 01:31 PM Indications Indication Non-Stemi Procedures Performed Procedure L HRT ARTERY/VENTRICLE ANGIO Pre-Procedure Checklist Pt not NPO for procedure and MD aware. Blood Pressure: 139/91 Rhythm: NSR Plan of Care Patient will tolerate the procedure without complications. Adequate level of comfort will be maintained. Hemodynamics will remain stable Patient will recover from procedure without complications. Respiratory function will be maintained. Cardiac rhythm will remain stable. Patient temperature will be maintained. Patient and/or family have verbalized understanding of the procedure. Patient Education Chief Complaint/Reason for Test: Cardiac Cath Developmental Category: Geriatric (65+ years) Developmentally Appropriate for Age: Yes Learning Barriers: None Education Needs: Procedure Education Method: Verbal Information Taught: Cardiac Cath Educational Evaluation: Able to repeat information Intravenous Access Time IV Size Location DC'd Fluid/Drip Rate Units RN 01:00 AM 20g 1 1/4" Patent On Arrival Rt Antecubital 0.9NaCl 25 ml/hr Manuel An RN Allergies No Known Allergies Vital Signs Time BP (mmHg) HR (bpm) O2 Sat. RR (bpm) LOC 01:32 PM / % 5 = Fully awake and oriented or at pre-proc level 01:52 PM 148 / 81 83 96 % 13 02:00 PM 145 / 85 81 95 % 17 4 = Oriented but drowsy 02:15 PM 139 / 79 80 94 % 22 4 = Oriented but drowsy 02:30 PM 140 / 84 83 93 % 19 4 = Oriented but drowsy 02:45 PM 151 / 90 81 95 % 16 4 = Oriented but drowsy 03:00 PM 149 / 84 79 98 % 10 4 = Oriented but drowsy 03:19 PM / % 4 = Oriented but drowsy 03:19 PM / % 4 = Oriented but drowsy 03:34 PM / % 4 = Oriented but drowsy 01:25 PM 139 / 91 89 100 % 16 01:30 PM 141 / 87 86 100 % 16 01:35 PM 126 / 76 87 99 % 10 01:40 PM 123 / 70 83 98 % 17 01:45 PM 125 / 76 84 99 % 12 03:20 PM 168 / 101 86 97 % 25 03:24 PM 173 / 112 83 94 % 17 03:29 PM 151 / 91 82 100 % 24 03:34 PM 151 / 85 80 100 % 16 03:39 PM 147 / 86 78 97 % 22 03:44 PM 153 / 85 80 97 % 18 03:49 PM 159 / 90 77 97 % 18 03:54 PM 157 / 92 80 98 % 15 03:59 PM 161 / 92 80 98 % 24 04:04 PM 179 / 102 87 99 % 10 04:09 PM 180 / 101 85 98 % 22 04:15 PM 186 / 106 84 99 % 17 04:21 PM 180 / 98 83 96 % 25 04:25 PM 168 / 101 82 99 % 14 04:29 PM 155 / 93 78 96 % 21 04:34 PM 160 / 95 76 94 % 22 04:39 PM 167 / 94 77 95 % 15 04:45 PM 171 / 93 133 96 % 13 Procedural Medications Time Medication Dose Units Method Given By 01:32 PM Oxygen 2 L/min nasal cannula Manuel An RN 01:32 PM Versed 2 mg Intravenous Manuel An RN 03:18 PM Oxygen 2 L/min nasal cannula Manuel An RN 03:27 PM Versed 2 mg Intravenous Manuel An RN 03:37 PM Lidocaine 2% 10 ml Subcutaneous Geovanny Hernández DO 03:39 PM Versed 1 mg Intravenous Manuel An RN 04:15 PM Morphine 2 mg Intravenous Manuel An RN 04:29 PM Nitroglycerin 400 mcg Sublingual Manuel An RN ASA Classification: CLASS II- Mild systemic disease (i.e. well-controlled diabetes, hypertension, asthma, cigarette smoking) Carmen Score Preprocedure Postprocedure Activity 2- Moves 4 extremities sustained head lift Activity 2- Moves 4 extremities sustained head lift Circulation 2- SBP +/= 20 points of pre-anesthetic level Circulation 2- SBP +/= 20 points of pre-anesthetic level Consciousness 2- Awake and alert oriented x 3 Consciousness 2- Awake and alert oriented x 3 O2 Saturation 2- Able to maintain O2 satruation of 92% on room air O2 Saturation 2- Able to maintain O2 satruation of 92% on room air Respiratory 2- Able to deep breathe and cough well Respiratory 2- Able to deep breathe and cough well Total Score 10 Total Score 10 Contrast Agent: Isovue Diagnostic Contrast: 75 ml Total Contrast: 75 ml Fluoro Dose: 622 mGy Procedure Log Time Note Enter By 01:21 PM CathStat 01:24 PM Vitals capture started with the following parameters, Patient=Adult, Interval=5 min, Initial Ipotzqij=469 mmHg, Deflation Rate=3 mmHg, Cuff placed on Right Arm 01:25 PM HR=89 bpm, FUES=584/91 mmhg, VvL2=793.0 %, Resp=16 B/min 01:30 PM Recorded ECG: HR=87 Condition=Condition 1 01:30 PM HR=86 bpm, VELO=857/87 mmhg, GjZ0=036.0 %, Resp=16 B/min 01:31 PM Pt arrived to blender laborer 1 at 13:31 : PM Blanquita Neil (R) Position: Monitor Time in: : PM Lisy Valdez Position: Scrub Time in: :: PM Manuel An RN Position: Online Marketer Time in: :: PM Patient charges- Angio tray pack, Navilyst 3mm J, Pulse Oximetry and ACIST tubing and transducer : PM Case Delayed No : PM Physician arrived 13: PM Meet and greet completed : PM Sign in performed according to hospital policy. PM Procedure start 13:32 PM Hair removed from procedure site in holding area using clippers. Bilateral groin prepped with Chloraprep by Blanquita Neil (R), then patient was draped. Skin intact. PM Time: 13:32 Oxygen on at 2 L/min per nasal cannula by Manuel An RN PM Time: 13:32 Versed 2 mg Intravenous Given by Manuel An RN PM Time: 13:32 Patient comfortable and pain free: Yes kk 01:32 PM Time: 13:32LOC: 5 = Fully awake and oriented or at pre-proc level [email or web address] 01:32 PM Clinical Presentation: Non-STEMI [email or web address] 01:35 PM HR=87 bpm, VLAZ=556/76 mmhg, SpO2=99.0 %, Resp=10 B/min 01:36 PM Pressure channel 2 zeroed. 01:40 PM HR=83 bpm, EJPU=062/70 mmhg, SpO2=98.0 %, Resp=17 B/min 01:45 PM HR=84 bpm, XYMX=256/76 mmhg, SpO2=99.0 %, Resp=12 B/min 01:49 PM stemi in the ed . patient taken off table and put into holding room tsites 01:50 PM patient monitored in holding room by housecleaner floor Kyleigh Laguerre with family at beside tsites 03:17 PM Pt returned to blender laborer 1 at 15:17 tsites 03:17 PM Sign in performed according to hospital policy. tsites 03:18 PM Blanquita Sites scrubbing, Lisy Valdez monitoring JESSICA An circulating tsites 03:18 PM Time: 15:18 Oxygen on at 2 L/min per nasal cannula by Manuel An RN tsites 03:18 PM Vitals capture started with the following parameters, Patient=Adult, Interval=5 min, Initial Qfjjjlqh=151 mmHg, Deflation Rate=3 mmHg, Cuff placed on Right Arm 03:19 PM Time: 15:19 Patient comfortable and pain free: Yes tsites 03:19 PM Time: 15:19LOC: 4 = Oriented but drowsy tsites 03:20 PM HR=86 bpm, SBSA=676/101 mmhg, SpO2=97.0 %, Resp=25 B/min 03:24 PM HR=83 bpm, GOAZ=251/112 mmhg, SpO2=94.0 %, Resp=17 B/min 03:27 PM Time: 15:27 Versed 2 mg Intravenous Given by Manuel An RN tsites 03:29 PM Pressure channel 3 zeroed. 03:29 PM Pressure channel 2 zeroed. 03:29 PM HR=82 bpm, SNNH=224/91 mmhg, HzP3=812.0 %, Resp=24 B/min 03:34 PM HR=80 bpm, HNLU=597/85 mmhg, FgF7=538.0 %, Resp=16 B/min 03:35 PM Time out performed according to hospital policy tsites 03:38 PM Time: 15:37 10 ml Lidocaine 2% to right groin Subcutaneous Given by Geovanny Hernández DO tsites 03:38 PM Micro-Introducer Kit utilized for sheath placement tsites 03:39 PM Time: 15:39 Versed 1 mg Intravenous Given by Manuel An RN tsites 03:39 PM HR=78 bpm, TSLS=403/86 mmhg, SpO2=97.0 %, Resp=22 B/min 03:40 PM Unsuccessful access attempt # 1 into the right Femoral artery. Manual pressure applied to achieve hemostasis.. tsites 03:42 PM Unsuccessful access attempt # 2 into the right Femoral artery. Manual pressure applied to achieve hemostasis.. tsites 03:43 PM Unsuccessful access attempt # 3 into the right Femoral artery. Manual pressure applied to achieve hemostasis.. tsites 03:44 PM Access obtained by percutaneous puncture. 6Fr 10cm Terumo [place] sheath placed in right Femoral artery. [id number] tsites 03:44 PM HR=80 bpm, NIDM=334/85 mmhg, SpO2=97.0 %, Resp=18 B/min 03:49 PM Time: 15:34 Patient comfortable and pain free: Yes tsites 03:49 PM Time: 15:34LOC: 4 = Oriented but drowsy tsites 03:49 PM HR=77 bpm, KOIR=360/90 mmhg, SpO2=97.0 %, Resp=18 B/min 03:54 PM Recorded Pressure: LV, HR=80, Condition=Condition 1 (Left Ventricle) LV 150/4/28 03:54 PM Recorded Pressure: LV, Ao, HR=80, Condition=Condition 1 (Left Ventricle) LV 146/-1/10, (Aorta) Ao 144/20/83 03:54 PM 5Fr FR 4 catheter inserted over the wire [facility] tsites 03:54 PM wire removed tsites 03:54 PM HR=80 bpm, IBOW=035/92 mmhg, SpO2=98.0 %, Resp=15 B/min 03:54 PM Catheter selectively placed in left ventricle tsites 03:55 PM Bolus angiogram of left Ventricle complete: hand injected tsites 03:55 PM Recorded Pressure: Ao, HR=81, Condition=Condition 1 (Aorta) Ao 138/71/101 03:57 PM Catheter removed tsites 03:57 PM 5Fr FL 4 catheter inserted over the wire DNC tsites 03:57 PM wire removed tsites 03:58 PM Recorded Pressure: Ao, HR=80, Condition=Condition 1 (Aorta) Ao 143/68/100 03:59 PM HR=80 bpm, NGUU=198/92 mmhg, SpO2=98.0 %, Resp=24 B/min 04:01 PM Catheter removed tsites 04:01 PM Bolus angiogram of right Femoral complete: tsites 04:04 PM Conversation between Interventionalist and CT Surgeon. tsites 04:04 PM HR=87 bpm, HSLD=640/102 mmhg, SpO2=99.0 %, Resp=10 B/min 04:05 PM Coronary Dominance: right tsites 04:05 PM Lesion found in Distal RCA. Pre Stenosis: 90 Pre SINCERE Flow: tsites 04:06 PM Lesion found in Mid LAD. Pre Stenosis: 95 Pre SINCERE Flow: tsites 04:06 PM Lesion found in Proximal Circumflex. Pre Stenosis: 90 Pre SINCERE Flow: tsites 04:06 PM Lesion found in Right PDA. Pre Stenosis: 90 Pre SINCERE Flow: tsites 04:06 PM Left Main Coronary Artery with 0% stenosis tsites 04:06 PM Proximal Left Anterior Descending Coronary Artery with 0% stenosis. If graft is supplying this territory, 0 % stenosis. tsites 04:06 PM Mid/Distal Left Anterior Descending Coronary Artery and diagonal branches with 95% stenosis. If graft is supplying this area, 0 % stenosis tsites 04:06 PM Circumflex, Obtuse Marginal, Left Posterior Descending, and Left Posterolateral Coronary Arteries with 90 % stenosis. If graft is supplying this area, 0 % stenosis tsites 04:06 PM Right Coronary, Right Posterior Descending Arteries with Right Posterolateral and Acute Marginal branches with 90 % stenosis. If graft is supplying this area, 0 % stenosis tsites 04:06 PM Ramus with 0% stenosis. If graft is supplying this area, 0 % stenosis tsites 04:07 PM Procedure completed at 16:07 tsites 04:07 PM Did you address SINCERE flow and Dominance? Yes tsites 04:07 PM Sign out completed: Radiation Dose 622.33 mGy Fluoro Time: 2.6 Isovue 370 - 200ml contrast 75 ml given by Geovanny Hernández, DO. Complications: NoneCardiac Rehab Consult needed: YesConfirmed administered medications: Yes tsites 04:07 PM Isovue 370 - 200ml,1 Bottle(s) used. tsites 04:08 PM Estimated Blood Loss: minimal tsites 04:08 PM Post ECG NSR tsites 04:08 PM Post Blood Pressure 179/102 tsites 04:08 PM NIBP STAT measurement started. 04:08 PM Information taught Cardiac Cath and V+ Pad tsites 04:08 PM Education needs Procedure, Plan of Care, and Responsibilities of Patient in Care tsites 04:09 PM Learning barriers :None tsites 04:09 PM Education Methods Verbal tsites 04:09 PM Education evaluation Able to repeat information tsites 04:09 PM Plavix, Effient or Brilinta given No tsites 04:09 PM Delay to floor No tsites 04:09 PM Family placed in consult room. tsites 04:09 PM Complications: None tsites 04:09 PM Fluoro Time: 2.6 tsites 04:09 PM HR=85 bpm, MGEI=001/101 mmhg, SpO2=98 %, Resp=22 B/min 04:09 PM Isovue 370 - 200ml contrast 75 ml given by Geovanny Hernández. tsites 04:09 PM Radiation Dose 622.33 mGy tsites 04:10 PM 16:10 Post Pulses Bilateral DP & PT 1+ tsites 04:14 PM Report given to 3B RN Pt taken to 3B Room #47. 16:14 tsites 04:15 PM HR=84 bpm, QTZO=953/106 mmhg, SpO2=99.0 %, Resp=17 B/min 04:15 PM Time: 16:15 Morphine 2 mg Intravenous Given by Manuel An RN tsites 04:[address] Dumont responded will see patients in the morning. tsites 04:21 PM HR=83 bpm, JQLX=822/98 mmhg, SpO2=96.0 %, Resp=25 B/min 04:25 PM HR=82 bpm, HSAY=845/101 mmhg, SpO2=99.0 %, Resp=14 B/min 04:29 PM Time: 16:29 Nitroglycerin 400 mcg Sublingual Given by Manuel An RN tsites 04:29 PM HR=78 bpm, BITI=873/93 mmhg, SpO2=96 %, Resp=21 B/min 04:34 PM HR=76 bpm, PBAB=352/95 mmhg, SpO2=94.0 %, Resp=22 B/min 04:39 PM HR=77 bpm, FJZU=611/94 mmhg, SpO2=95.0 %, Resp=15 B/min 04:45 PM BM=724 bpm, BVTU=931/93 mmhg, SpO2=96.0 %, Resp=13 B/min 04:49 PM Vitals capture stopped. 04:49 PM Arterial sheath pulled using manual compression and V+ Pad for 15 minutes by Manuel An RN tsites 04:50 PM Site status No bleeding/hematoma - Rt Groin as reported by Manuel An RN at 16:50 tsites 04:50 PM Opsite applied tsites Complications Complication None None Hemodynamics Pressures Site Systolic/A Wave Diastolic/V Wave Mean LV 150 4 28 LV 146 -1 10 AO 144 20 83 AO 138 71 101 AO 143 68 100 Post Procedure Information Blood Pressure: 179/102 mmHg Rhythm: NSR Post procedural instructions were given Surgery consult for CABG Site Checks Time Location Status Staff Sheath In? Note 04:50 PM Rt Groin No bleeding/hematoma Manuel An RN Pulses Time Site Pre-Procedure Post-Procedure Note Bilateral DP & PT 1+ 4:10:00 PM Bilateral DP & PT 1+ Updated by Blanquita Rashaad RT (R) on 01/12/2018 4:52:39 PM [facility] RT electronically signed on 01/12/2018 4:53:10 PM with status of Final
[2018-01-13] MEDS: methylPREDNISolone 125 MG/2 ML VIAL IVP SCH ×2 (05:34→17:54)
[2018-01-13 06:11] LABS: Basophils % 0.1 %; Hematocrit 38.1 % (37.5-50.1); Hemoglobin 12.3 g/dL (12.9-16.9); Immature Granulocytes % 0.8 % (0-4); Lymphocytes # 0.8 K/mcL (0.6-4.6); Lymphocytes % 4.4 %; Mean Corpuscular HGB Conc 32.3 g/dL (31.6-35.5); Mean Corpuscular Hemoglobin 29.2 pg (28.0-33.3); Mean Corpuscular Volume 90.5 fL (83.0-100.0); Mean Platelet Volume 10.3 fL (9.4-12.4); Monocytes # 1.2 K/mcL (0.0-1.3); Neutrophils # 16.9 K/mcL (1.6-8.9); Platelet Count 188 K/mcL (140-400); Red Blood Count 4.21 M/mcL (4.19-5.50); Red Cell Distribution Width 13.7 % (11.5-14.5); Segmented Neutrophils % 88.7 %
[2018-01-13 06:29] LABS: BUN/Creatinine Ratio 17 (6-26); Blood Urea Nitrogen 17 mg/dL (8-23); Calcium 8.5 mg/dL (8.6-10.3); Carbon Dioxide 26 mEq/L (23-29); Chloride 109 mEq/L (98-107); Glucose 144 mg/dL (70-105); Osmolality,Calculated 296 (280-300); Potassium 4.5 mEq/L (3.5-5.1); Sodium 141 mEq/L (136-145); eGFR For African Americans > 60 (> 60); eGFR For Non-African Americans > 60 (> 60)
[2018-01-13] MEDS: Aspirin Enteric Coated 81 MG Tablet PO SCH (09:13)
[2018-01-13] MEDS: Vancomycin Oral Soln 250 MG/5 ML UDC PO SCH ×4 (09:13→20:03)
[2018-01-13] MEDS: Metoprolol XL (24 HR) Succ 50 MG TAB.ER.24H PO SCH ×2 (09:13→20:02)
[2018-01-13] MEDS: Piperacillin/Tazobactam 3.375 GM in 0.9 % Sodium Chloride Mini Bag 100 ML IVPB SCH ×2 (09:14→19:47)
[2018-01-13] MEDS: Ipratropium/Albuterol Neb 3 ML IH SCH ×2 (10:18→21:35)
[2018-01-13] MEDS: Budesonide/Formoterol 80/4.5 MDI IH SCH ×2 (10:18→21:35)
--- NOTE | 2018-01-13 11:07 | Cardiothoracic Consult Note ---
Date of Encounter: 01/13/18 Time of Encounter: 11:02 Assessment and Plan (1) Non-ST elevation NM (NSTEMI) Current Visit: Yes Status: Acute The assessment and plan as outlined above was discussed with the patient and/or family members who expressed understanding and agreement. All questions were answered. The patient has severe triple-vessel disease with preserved left ventricular function and bypassable vessels. He is a good candidate for open heart surgery. This was discussed with the patient and his . Presently, he is being treated for C. difficile colitis. His white blood cell count is 19,000. His abdomen is slightly distended and tender. He had a large, watery stool this morning and was incontinent. His C. difficile colitis needs to be treated and resolved prior to open-heart surgery. Infectious disease consult would be useful. Probiotics may also help. - History of Present Illness History of present illness: Mr. Barnard is a 77 year old male The patient is a 77-year-old gentleman who has a history of C. difficile colitis. He got this from antibiotics he took for recent COPD exacerbation. He presently is on by mouth vancomycin. He had a large, watery stool this morning and was incontinent. His white blood cell count is 19,000. Upon admission, his troponin was positive at 0.10. Echocardiogram revealed ejection fraction of 60-65%. No significant valvular disease. Cardiac catheterization revealed triple-vessel disease with a 95% LAD lesion, 90% circumflex lesion and 90% right coronary artery lesion. These are all bypassable vessels. Past medical history is notable for hypertension and hyperlipidemia. He does have a 5.2 mm lung nodule, which needs to be followed up in 1 year. He does have a history of COPD. Family history is positive for coronary artery disease. Social history. He lives near [place]. 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 He used to smoke 2 packs of cigarettes per day, but quit 15 years ago. He drinks occasional beer. Review of systems. He is not diabetic. No history of stroke or TIA. Past Med Surg Social Fam HX - Past Medical History Medical history: hyperlipidemia, hypertension Psychiatric history: no psych history - Past Surgical History Surgical History: appendectomy - Social History Smoking Status: Never smoker Smokeless Tobacco Status: No Alcohol use: occasionally Drug use: none Medications and Allergies Albuterol Sulfate [Proventil Hfa] 10/15/15 [History] Aspirin [Adult Low Dose Aspirin EC] 81 mg PO DAILY 10/15/15 [History] Azithromycin [Zithromax] 250 mg PO Q24H #4 tablet 10/15/15 [Rx] Budesonide/Formoterol 80/4.5 [Symbicort 80/4.5] 2 puff IH 10/15/15 [History] Ipratropium/Albuterol Neb [Duoneb] 10/15/15 [History] Losartan Potassium [Cozaar] 10/15/15 [History] Metoprolol [Lopressor] 10/15/15 [History] OxyCODONE/APAP 5/325 [Percocet 5/325 MG] 1 each PO Q8HR PRN #14 tablet 10/15/15 [Rx] Simvastatin [Zocor] 10/15/15 [History] Vitamin D3/Folic Acid [Ortho D 3,775 Unit-1 mg Cap] 10/15/15 [History] predniSONE [Prednisone] 60 mg PO DAILY 5 Days tablet 10/15/15 [Rx] Albuterol Sulfate [Proventil Hfa] 1 puff IH BID PRN 01/11/18 [History] Aspirin [Lo-Dose Aspirin EC] 81 mg PO DAILY 01/11/18 [History] Ipratropium/Albuterol Neb [Duoneb] 3 ml IH BID 01/11/18 [History] Losartan Potassium [Cozaar] 50 mg PO DAILY 01/11/18 [History] Metoprolol Succinate [Toprol Xl] 50 mg PO BID 01/11/18 [History] Simvastatin [Zocor] 40 mg PO HS 01/11/18 [History] 3 Allergy/AdvReac Type Severity Reaction Status Date / Time No Known Allergies Allergy Verified 10/15/15 13:22 All Systems Review: The remainder of the systems were reviewed and are negative Physical Examination Vital Signs, Last 4 Hours Temp Pulse Resp BP Pulse Ox 01/13/18 07:49 97.4 F L 73 18 134/78 96 He is status post a lens implant on the left and has a small cataract on the right. No oral lesions. Neck is supple. Trachea in the midline. No thyromegaly or carotid bruits. Heart is in a normal sinus rhythm. No murmurs, gallops or rubs. Abdomen is distended and slightly tender. No guarding or rebound. Extremities. He has a history of a old broken ankle on one side and a broken foot on the other side. No saphenous vein varicosities or strippings. Cranial nerves, motor and sensory intact. Results 01/13/18 05:22 01/13/18 05:22 Lab Results, Last 24 hours 01/13/18 01/13/18 05:22 05:22 WBC 19.1 H Hgb 12.3 L Hct 38.1 Plt Count 188 Sodium 141 Potassium 4.5 Chloride 109 H Carbon Dioxide 26 BUN 17 Creatinine 0.98 Glucose 144 H Calcium 8.5 L Consult Discharge Plan - Plan Referrals: Margarito Abarca MD [Primary Care Provider] -
[2018-01-13] MEDS: Lactobacillus 1 EACH CAP.SPRINK PO SCH ×2 (13:16→20:02)
--- NOTE | 2018-01-13 17:11 | Internal Med Progress Note ---
Date of Encounter: 01/13/18 Time of Encounter: 17:09 - Assessment and plan (1) Clostridium difficile colitis Current Visit: Yes Status: Acute Assessment and plan: recently treated with ATB outpatient for COPD exacerbation. Symptomatic with abdominal cramping and multiple loose stools. ABD CT without acute GI abnormality. Stool for C. difficile positive. Continue oral vancomycin. Infectious disease consulted per CTS recommendations. (2) Non-ST elevation CT (NSTEMI) Current Visit: Yes Status: Acute Assessment and plan: presented with chest pain. Troponin peaked at 0.1 and trended down. Chest CTA ahowed therosclerosis diffusely with heavy coronary artery involvement, no pulmonary embolism. 01/12/18 LHC showed severe 3 vessel coronary artery disease, EF 60%, evaluation for CABG was recommended. Evaluated by CTS who noted bypassable vessels and recommending open heart surgery. C. diif needs to be treated and resolved prior to open heart surgery. Continue medical management and aggressive risk factor modification. Cont ASA, BB, statin. (3) Bronchiolitis Current Visit: Yes Status: Acute Assessment and plan: Symptomatic with shortness of breath and productive cough. Was recently treated with 2 different IM ATB outpatient. Chest CTA with bilateral lower lobe bronchial thickening and mild groundglass changes concerning for bronchiolitis/ atypical infection. WBC 19K (likely secondary to steroids ). Initially treated with Zosyn. Change ATB to azithromycin (for anti-inflammatory properties), ceftriaxone. Urinary antigens, resp PCR pending. Infectious disease consult (4) Liver lesion Current Visit: Yes Status: Acute Assessment and plan: Chest CTA showed small liver lesion. Liver MRI with redemonstration of liver lesion which likely represents a cyst. LFTs normal. Outpatient follow-up. (5) DVT prophylaxis Current Visit: No Status: Chronic Assessment and plan: heparin - Subjective Interval history: Seen and examined at bedside, patient is new to me. Information obtained chart review and patient report. Says he feels much better but still weak and fatigued. He reports 2 bowel movements in the last 24 hours. Has some shortness of breath and productive cough. Intermittent chest pain. - Constitutional Vitals: Temp Pulse Resp BP Pulse Ox 97.5 F L 74 18 136/71 97 01/13/18 15:16 01/13/18 15:16 01/13/18 15:16 01/13/18 15:16 01/13/18 15:16 General appearance: Present: A&O X 3, pleasant, obese - Head Head exam: Present: atraumatic, normocephalic - Eye Eye exam: Present: PERRL, conjuntiva pink, sclera anicteric Pupils: Present: PERRL - Neck Neck exam general surgery: Present: supple, trachea midline. Absent: lymphadenopathy - Respiratory Respiratory exam: Present: CTAB, rhonchi. Absent: accessory muscle use, rales, wheezes - Cardiovascular Cardiovascular exam: Present: RRR, +S1, +S2. Absent: diastolic murmur, gallop, rubs, systolic murmur - GI/Abdominal GI/Abdominal exam: Present: normal bowel sounds, soft, no peritoneal signs. Absent: distended, tenderness - Extremities Exam Extremities exam: Present: warm, radial pulses palpable and symmetrical. Absent : calf tenderness, cyanotic, pedal edema - Neurological Exam Neurological exam: Present: CN II-XII intact, oriented X3, no focal deficits. Absent: pronater drift, facial droop, speech deficit - Skin Skin exam: Present: dry, intact Internal Medicine: Result - Labs CBC & Chem 7: 01/13/18 05:22 01/13/18 05:22 Labs: Short CBC 01/13/18 Range/Units 05:22 WBC 19.1 H (4.3-11.1) K/mcL Hgb 12.3 L (12.9-16.9) g/dL Hct 38.1 (37.5-50.1) % Plt Count 188 (140-400) K/mcL Neutrophils # 16.9 H (1.6-8.9) K/mcL BMP 01/13/18 05:22 Sodium 141 Potassium 4.5 Chloride 109 H Carbon Dioxide 26 BUN 17 Creatinine 0.98 Glucose 144 H Calcium 8.5 L - ABG Interpretation ABG results: PT/INR, D-dimer PT 12.3 Seconds (9.4-12.1) H 01/11/18 07:08 D-Dimer 894 ng/mLFEU (0-500) H 01/11/18 07:08 Consult Discharge Plan - Plan Referrals: Margarito Abarca MD [Primary Care Provider] -
[2018-01-13] MEDS ORDERED: cefTRIAXone 2,000 MG in Water for inj. (sterile) 20 ML 20 ML IVP SCH (18:00)
[2018-01-13] MEDS ORDERED: Azithromycin 500 MG in D5% in Water 250 ML IVPB SCH (18:00)
[2018-01-13 19:19] LABS: Adenovirus Not Detected (Not Detect); Bordetella Pertussis Not Detected (Not Detect); Chlamydophila pneumoniae Not Detected (Not Detect); Coronavirus 229E Not Detected (Not Detect); Coronavirus HKU1 Not Detected (Not Detect); Coronavirus NL63 Not Detected (Not Detect); Coronavirus OC43 Not Detected (Not Detect); Human Metapneumovirus Not Detected (Not Detect); Human Rhinovirus/Enterovirus Not Detected (Not Detect); Influenza A Subtype 2009 H1 Not Detected (Not Detect); Influenza A Untypeable Not Detected (Not Detect); Influenza B Not Detected (Not Detect); Mycoplasma pneumoniae Not Detected (Not Detect); Parainfluenza Virus 1 Not Detected (Not Detect); Parainfluenza Virus 2 Not Detected (Not Detect); Parainfluenza Virus 3 Not Detected (Not Detect); Parainfluenza Virus 4 Not Detected (Not Detect); Respiratory Syncytial Virus Not Detected (Not Detect)
[2018-01-13] MEDS: *HR* Heparin 5,000 UNIT/ML VIAL SQ SCH (21:18)
[2018-01-14 04:43] LABS: Mean Corpuscular HGB Conc 32.4 g/dL (31.6-35.5); Mean Corpuscular Hemoglobin 29.1 pg (28.0-33.3); Mean Corpuscular Volume 89.8 fL (83.0-100.0); Mean Platelet Volume 10.2 fL (9.4-12.4); Platelet Count 181 K/mcL (140-400); Red Blood Count 4.12 M/mcL (4.19-5.50); Red Cell Distribution Width 13.4 % (11.5-14.5)
[2018-01-14 05:05] LABS: BUN/Creatinine Ratio 17 (6-26); Blood Urea Nitrogen 15 mg/dL (8-23); Calcium 8.3 mg/dL (8.6-10.3); Carbon Dioxide 28 mEq/L (23-29); Chloride 110 mEq/L (98-107); Glucose 120 mg/dL (70-105); Osmolality,Calculated 294 (280-300); Potassium 4.4 mEq/L (3.5-5.1); Sodium 141 mEq/L (136-145); eGFR For African Americans > 60 (> 60); eGFR For Non-African Americans > 60 (> 60)
[2018-01-14] MEDS: methylPREDNISolone 125 MG/2 ML VIAL IVP SCH (05:14)
[2018-01-14] MEDS: *HR* Heparin 5,000 UNIT/ML VIAL SQ SCH ×3 (05:14→21:20)
--- NOTE | 2018-01-14 09:02 | Cardiology Progress Note ---
<Leyla Brady - Last Filed: 01/14/18 11:10> Date of Encounter: 01/14/18 Time of Encounter: 08:56 Assessment and Plan (1) Chest pain Current Visit: Yes Status: Acute Chest pain at rest, pressure like, non radiating, lasting hours, relieved by nitro. Admitted shortness of breath and diaphoresis. troponin 0.1, 0.06 01/11/2018 EKG demonstrated misplaced limb leads, t wave inversion in lateral leads SINCERE score 4 CTA: Atherosclerosis diffusely with heavy coronary artery involvement. No PE PMH: HTN, HLD, COPD Brother had [place] at 74yo. Former smoker -TTE: LVEF=60-65%, mild LV diastolic dysfunction. -LHC demonstrated severe triple vessel disease with 95% LAD lesion, 90% circumflex lesion, 90% right coronary artery lesion. -Dr. Hair of cardiothoracic surgery has evaluated the patient for open bypass that was recommended to the patient and he was agreeable. However, he is currently being treated for C.diff and is taking steroids for bronchiolitis. C.diff must be resolved and he must be off steroids prior to CABG. Dr. Hernández and Dr. Hair both agree that patient may be discharged home then will come back for elective CABG. Cardiology will sign off at this time. -nitro as needed Qualifiers: Qualified Code(s): R07.9 - Chest pain, unspecified (2) Elevated troponin Current Visit: Yes Status: Acute troponin 0.1, 0.6, 0.5, 0.4 -trending down (3) Diarrhea Current Visit: Yes Status: Acute Tested C.diff positive in ED. On antibiotics 1 month ago for COPD exac and then 2 weeks later developed watery diarrhea for which he was placed on flagyl and did not improve diarrhea. Failed treatment with flagyl, still has diarrhea. -Patient reports significant improvement in diarrhea with resolved abdominal pain -on oral vancomycin. management per primary team Qualifiers: Diarrhea type: infectious Qualified Code(s): A09 - Infectious gastroenteritis and colitis, unspecified (4) Bronchiolitis Current Visit: Yes Status: Acute Currently being treated for bronchiolitis -currently being treated with and rocephin, azithromycin, steroids. Management per primary team -patient must be off steroids prior to LHC (5) Hypertension Current Visit: No Status: Chronic HTN. BP controlled. -will continue to monitor -continue asa, losartan, toprol, simvistatin Qualifiers: Hypertension type: essential hypertension Qualified Code(s): I10 - Essential (primary) hypertension Discussion w patient/family: The assessment and plan as outlined above was discussed with the patient and/or family members who expressed understanding and agreement. All questions were answered. Thank you for involving us in the care of your patient. Please call with any questions. Subjective Principal diagnosis: chest pain Interval history: -LHC demonstrated severe triple vessel disease with 95% LAD lesion, 90% circumflex lesion, 90% right coronary artery lesion. -Dr. Hair of cardiothoracic surgery has evaluated for open bypass that was recommended to the patient and he was agreeable. However, has is currently being treated for C.diff and is taking steroids for bronchiolitis. C.diff must be resolved and he must be off steroids prior to CABG. -Patient reports the diarrhea has significantly improved and he no longer has abdominal pain. He denies chest pain today. Objective Vital Signs, Last 4 Hours Temp Pulse Resp BP Pulse Ox 01/14/18 07:38 98.3 F 17 58 138/80 93 General: Conversant, No Apparent Distress HEENT: Atraumatic, Mucus Membranes Moist Neck: No JVD Cardiac: Reg Rate and Rhythm, Normal S1 and S2 Lungs: Normal Breath Sounds Neuro: Alert and responsive, No focal deficits noted Abdomen: Soft, Non-Tender Skin: No rashes noted on visualized skin Musculoskeletal: No Chest Wall Tenderness Extremities: No Edema Results 01/14/18 04:19 01/14/18 04:19 Lab Results 01/14/18 01/14/18 04:19 04:19 WBC 12.1 H Hgb 12.0 L Hct 37.0 L Plt Count 181 Sodium 141 Potassium 4.4 Chloride 110 H Carbon Dioxide 28 BUN 15 Creatinine 0.88 Glucose 120 H Calcium 8.3 L Consult Discharge Plan - Plan Referrals: Margarito Abarca MD [Primary Care Provider] - <Shawnee Crockett - Last Filed: 01/14/18 13:41> Date of Encounter: 01/14/18 Assessment and Plan (1) Chest pain Current Visit: Yes Status: Acute Chest pain at rest, pressure like, non radiating, lasting hours, relieved by nitro. Admitted shortness of breath and diaphoresis. troponin 0.1, 0.06 01/11/2018 EKG demonstrated misplaced limb leads, t wave inversion in lateral leads SINCERE score 4 CTA: Atherosclerosis diffusely with heavy coronary artery involvement. No PE PMH: HTN, HLD, COPD Brother had IN at 74yo. Former smoker -TTE: LVEF=60-65%, mild LV diastolic dysfunction. -LHC demonstrated severe triple vessel disease with 95% LAD lesion, 90% circumflex lesion, 90% right coronary artery lesion. -Dr. Hair of cardiothoracic surgery has evaluated the patient for open bypass that was recommended to the patient and he was agreeable. However, he is currently being treated for C.diff and is taking steroids for bronchiolitis. C.diff must be resolved and he must be off steroids prior to CABG. Dr. Hernández and Dr. Hair both agree that patient may be discharged home then will come back for elective CABG. Cardiology will sign off at this time. -nitro as needed I examined this patient and my medical decision-making was reviewed with the Resident Physician. I agree with the documented findings, disposition and treatment plan as described except to the extent set forth below. 77 YOM with 3 vessel dz for CABG after resolution of C.diff/bronchiolitis. Both Interventional cardiology and Cardiac surgery have agreed to discharge and set up surgery as an OP. Patient remains asymptomatic denies any chest pain last 24 hours. On appropriate medical management Qualifiers: Qualified Code(s): R07.9 - Chest pain, unspecified Discussion w patient/family: The assessment and plan as outlined above was discussed with the patient and/or family members who expressed understanding and agreement. All questions were answered. Thank you for involving us in the care of your patient. Please call with any questions. Objective Vital Signs, Last 4 Hours Temp Pulse Resp BP Pulse Ox 01/14/18 11:46 98.3 F 59 15 136/78 95 01/14/18 10:50 18 94 Results 01/14/18 04:19 01/14/18 04:19 Lab Results 01/14/18 01/14/18 04:19 04:19 WBC 12.1 H Hgb 12.0 L Hct 37.0 L Plt Count 181 Sodium 141 Potassium 4.4 Chloride 110 H Carbon Dioxide 28 BUN 15 Creatinine 0.88 Glucose 120 H Calcium 8.3 L
[2018-01-14] MEDS: Metoprolol XL (24 HR) Succ 50 MG TAB.ER.24H PO SCH ×2 (09:18→21:20)
[2018-01-14] MEDS: Aspirin Enteric Coated 81 MG Tablet PO SCH (09:18)
[2018-01-14] MEDS: Lactobacillus 1 EACH CAP.SPRINK PO SCH ×2 (09:18→21:20)
[2018-01-14] MEDS: Vancomycin Oral Soln 250 MG/5 ML UDC PO SCH ×4 (09:19→21:21)
--- NOTE | 2018-01-14 10:42 | Cardiothoracic Progress Note ---
Date of Encounter: 01/14/18 Time of Encounter: 10:37 - Assessment and plan (1) Non-ST elevation MO (NSTEMI) Current Visit: Yes Status: Acute The patient is a 77-year-old man who presented to [facility] with diarrhea and substernal chest pressure. He was found to have elevated troponin I levels consistent with an acute NSTEMI. He underwent cardiac catheterization yesterday was found to have severe 3 vessel CAD and an LVEF 60% . He has been recommended for CABG. With the patient's profuse diarrhea, he had a C. difficile toxin screen performed which was positive. The patient is currently being treated for C. difficile colitis with oral vancomycin and for COPD exacerbation with oral prednisone. Once the patient's C. difficile colitis resolves and the toxin is negative, and the patient's COPD exacerbation has been treated and he is off prednisone, he will undergo elective CABG. I discussed the patient's case with Dr. 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 Hernández does not believe that the patient needs to remain in the hospital until his CABG. The patient may be discharged at the hospitalist discretion and he will be readmitted for elective CABG probably next week. The assessment and plan as outlined above was discussed with the patient and/or family members who expressed understanding and agreement. All questions were answered. Vital Signs, Last 4 Hours Temp Pulse Resp BP Pulse Ox 01/14/18 09:15 93 01/14/18 07:38 98.3 F 17 58 138/80 93 Oxgyen Flow Rate Oxygen Flow Rate (LPM) 2 Weight 01/12/18 01/13/18 01/14/18 23:59 23:59 23:59 Weight 106.6 kg 106.3 kg 106.7 kg - Physical Examination General: Conversant, No Apparent Distress Neck: No JVD, Normal carotid pulses Cardiac: Reg Rate and Rhythm, Normal S1 and S2, No Murmur Lungs: Normal Breath Sounds, No Wheeze, Rales, Rhonchi Neuro: Alert and responsive, No focal deficits noted Extremities: No Clubbing, No Cyanosis, No Edema - Labs 01/14/18 04:19 01/14/18 04:19 Lab Results, Last 24 hours 01/14/18 01/14/18 04:19 04:19 WBC 12.1 H Hgb 12.0 L Hct 37.0 L Plt Count 181 Sodium 141 Potassium 4.4 Chloride 110 H Carbon Dioxide 28 BUN 15 Creatinine 0.88 Glucose 120 H Calcium 8.3 L Consult Discharge Plan - Plan Referrals: Margarito Abarca MD [Primary Care Provider] -
[2018-01-14] MEDS: Ipratropium/Albuterol Neb 3 ML IH SCH ×2 (10:48→21:08)
[2018-01-14] MEDS: Budesonide/Formoterol 80/4.5 MDI IH SCH ×2 (10:48→21:08)
--- NOTE | 2018-01-14 10:48 | Event Note ---
Date of Encounter: 01/14/18 Time of Encounter: 10:45 The STS risk calculator gives the patient and operative mortality risk 1.06%, deep sternal wound infection risk 0.43%, permanent stroke risk 0.71%, renal failure risk 1.87%, and reoperation risk 4.03%.
[2018-01-14] MEDS ORDERED: Nitroglycerin 0.4 MG TAB.SUBL SL PRN (13:34)
--- NOTE | 2018-01-14 14:31 | Infectious Disease Consult ---
Date of Encounter: 01/14/18 Time of Encounter: 14:25 Assessment and Plan (1) Sepsis Status: Acute Assessment and plan: The patient had two SIRS criteria on admission. Likely secondary to C. diff diarrhea. Improved. WBC trending down. Tachycardia has resolved. Blood cultures drawn 01/11/18 are NGTD x 3 sets. Qualifiers: Sepsis type: sepsis due to unspecified organism Qualified Code(s): A41.9 - Sepsis, unspecified organism (2) Clostridium difficile colitis Status: Acute Assessment and plan: Likely secondary to recent antibiotic use. Patient reports 10 loose, watery bowel movements per day. Failed outpatient oral Flagyl. Initial episode, severe with WBC >15,000. Clinically improved with PO Vancomycin. The patient reports his stools are less frequent and are more formed. Continue Vancomycin, but decrease dose to 125mg PO QID. Duration of treatment depends on the clinical picture, but likely 10 days. (3) Bronchiolitis Status: Acute Assessment and plan: Likely viral. CXR shows findings consistent with bronchiolitis, but no PNA. RIP negative. Stop Rocephin and Zithromax and observe. (4) Non-ST elevation NM (NSTEMI) Status: Acute Assessment and plan: Status post [facility] 01/12/18 that showed triple-vessel disease. CTS consulted and planning to pursue CABG once C. diff has resolved. (5) Hypertension Status: Chronic Qualifiers: Hypertension type: essential hypertension Qualified Code(s): I10 - Essential (primary) hypertension (6) Liver lesion Status: Acute Assessment and plan: CTA of the abdomen and pelvis showed a nonspecific liver lesion and radiology recommended an abdominal MRI. Abdominal MRI showed findings consistent with a liver cyst and biliary duct dilatation. Consider GI referral as an outpatient. (7) Obesity (BMI 30.0-34.9) Status: Chronic Infectious Disease HPI - Data of Consult Patient: new to practice Consult date: 01/14/18 Requesting Physician: Cadence Florez CNP Primary Care Provider: Margarito Abarca MD - Consult Narrative Reason for consult: C. diff diarrhea History of present illness: Mr. Barnard is a 77 year old male with past medical history of hypertension and hyperlipidemia. The patient was admitted to the hospital January 11 for non-STEMI , C. difficile diarrhea. We are consulted January 14 for antibiotic recommendations for C. difficile diarrhea. Reflux, the patient's a 77-year-old male with past medical history as stated above. The patient presented to the emergency department with complaints of chest pain, shortness of breath, cough and chest congestion, nausea, and diarrhea. He had been evaluated by his PCP about a month prior to presentation and given 3 IM injections, but the patient is unsure what they were. He states he continued to have chest congestion and was seen again by his PCP and given another round of IM injections. He states that stay he developed diarrhea and was seen again and placed on a course of oral Flagyl. He states the diarrhea persisted and was watery and persistent and he was having about 10 stools per day. She states the day prior to admission he developed substernal chest pain that felt like pressure and was nonradiating and he was unable to get comfortable or sleep sinning came to the emergency department. Upon arrival, the patient had a low-grade fever and was tachycardic and had leukocytosis with neutrophilic predominance. He has troponins were positive at 0.10, 0.06, and 0.05. Urinalysis was obtained that was negative. He had a C. difficile specimen that was positive. Blood cultures were obtained 3 sets and are no growth to date. He had a chest x-ray that showed mild interstitial changes as well as a CTA of the chest, abdomen, and pelvis that showed a right middle lobe pulmonary nodule, bronchiolitis/atypical infection, severe atherosclerosis, and a nonspecific liver lesion. He then underwent an abdominal MRI to further characterize the liver lesion and the reading states that it is likely a liver cyst and there was some mild biliary duct dilatation. He was started on IV vancomycin and IV Zosyn and IV Solu-Medrol and admitted to the hospital for further evaluation. Since admission, the patient has been evaluated by cardiology who recommended a left heart catheter. He had a transthoracic echo that showed an EF of 60-65% and no valvular dysfunction. He underwent a left heart catheter on January 12 that showed severe triple vessel disease. Cardiothoracic surgery was consulted and recommends a CABG once the patient has completed treatment for C. difficile. No respiratory infectious panel that was negative. His white blood cell count is trending down. He is currently on oral vancomycin 250 mg 4 times a day, IV Rocephin, and IV Zithromax. We have been asked to evaluate and make further recommendations. During my exam today, the patient endorses a history as stated above. He states that overall he feels much better. He reports some subjective fevers and chills, but denies any rigors. He denies any headache or neck pain. He denies any nasal congestion, earache, or sore throat. He states the pain in his chest was substernal and mid sternal and was pressure and was improved when he was given nitroglycerin in the emergency department. He reports 1 month history of ongoing chest congestion with cough productive of small amount of yellow sputum that is now dry. He reports that he was somewhat nauseated, but denies any vomiting or diarrhea or abdominal pain. He reports that he had some abdominal cramping when he would have come diarrhea. He reports that his stools were frequent, watery, nonbloody. He denies any mucus in the stool. He reports some trouble with bowel incontinence since the diarrhea started. He denies any oral thrush or skin lesions. He denies any back or extremity pain. He denies any urinary complaints. He states his appetite has been okay. CC: Cadence Florez CNP Past Med Surg Social Fam HX - Past Medical History Attestation: Yes The following information was validated with the patient. Source: patient, old records reviewed, nursing notes reviewed Medical history: hyperlipidemia, hypertension Psychiatric history: no psych history - Past Surgical History Surgical History: appendectomy - Social History Smoking Status: Never smoker Smokeless Tobacco Status: No Alcohol use: occasionally Drug use: none Occupational status: retired Current living situation: Home - Independent Activity Level: Independent ambulation Recent Out of Country Travel Within the Last 8 Weeks: No Exposure or Possible Exposure to Illness During Travel: No Infectious Disease-CN:Meds Albuterol Sulfate [Proventil Hfa] 10/15/15 [History] Aspirin [Adult Low Dose Aspirin EC] 81 mg PO DAILY 10/15/15 [History] Azithromycin [Zithromax] 250 mg PO Q24H #4 tablet 10/15/15 [Rx] Budesonide/Formoterol 80/4.5 [Symbicort 80/4.5] 2 puff IH 10/15/15 [History] Ipratropium/Albuterol Neb [Duoneb] 10/15/15 [History] Losartan Potassium [Cozaar] 10/15/15 [History] Metoprolol [Lopressor] 10/15/15 [History] OxyCODONE/APAP 5/325 [Percocet 5/325 MG] 1 each PO Q8HR PRN #14 tablet 10/15/15 [Rx] Simvastatin [Zocor] 10/15/15 [History] Vitamin D3/Folic Acid [Ortho D 3,775 Unit-1 mg Cap] 10/15/15 [History] predniSONE [Prednisone] 60 mg PO DAILY 5 Days tablet 10/15/15 [Rx] Albuterol Sulfate [Proventil Hfa] 1 puff IH BID PRN 01/11/18 [History] Aspirin [Lo-Dose Aspirin EC] 81 mg PO DAILY 01/11/18 [History] Ipratropium/Albuterol Neb [Duoneb] 3 ml IH BID 01/11/18 [History] Losartan Potassium [Cozaar] 50 mg PO DAILY 01/11/18 [History] Metoprolol Succinate [Toprol Xl] 50 mg PO BID 01/11/18 [History] Simvastatin [Zocor] 40 mg PO HS 01/11/18 [History] 3 Allergy/AdvReac Type Severity Reaction Status Date / Time No Known Allergies Allergy Verified 10/15/15 13:22 All systems: reviewed and no additional remarkable complaints except as stated Exam - Constitutional Vitals: Temp Pulse Resp BP Pulse Ox 98.3 F 59 15 136/78 95 01/14/18 11:46 01/14/18 11:46 01/14/18 11:46 01/14/18 11:46 01/14/18 11:46 General appearance: cooperative, no acute distress, obese - Head Head exam: Present: atraumatic, normal inspection, normocephalic - Eye Eye exam: Present: EOMI, normal appearance, PERRL Pupils: Present: normal accommodation - ENT ENT exam: Present: mucous membranes moist - Neck Neck exam: Present: normal inspection - Respiratory Respiratory exam: Present: CTAB. Absent: rales, respiratory distress, rhonchi, wheezes - Cardiovascular Cardiovascular exam: Present: RRR, +S1, +S2 - GI/Abdominal GI/Abdominal exam: Present: distended (obese), normal bowel sounds, soft. Absent: tenderness - Extremities Exam Extremities exam: Present: normal inspection. Absent: joint swelling, pedal edema, tenderness - Neurological Exam Neurological exam: Present: alert, oriented X3, no focal deficits - Psychiatric Psychiatric exam: Present: normal affect, normal mood - Skin Skin exam: Present: dry, intact, normal color, warm Infectious Disease CN: Results - Labs CBC & Chem 7: 01/14/18 04:19 01/14/18 04:19 Cultures: Cultures 01/11/18 07:20 Blood Culture - Preliminary Peripheral Venipuncture No growth. 01/11/18 07:05 Blood Culture - Preliminary Peripheral Venipuncture No growth. 01/11/18 07:25 Blood Culture - Preliminary Peripheral Venipuncture No growth. Serology: Serology 01/13/18 Range/Units 18:16 Chlamy pneumoniae PCR Not Detected (Not Detect) Adenovirus (PCR) Not Detected (Not Detect) B. pertussis DNA (PCR) Not Detected (Not Detect) B.parapertussis DNA PCR Not Detected (Not Detect) Coronavirus OC43 (PCR) Not Detected (Not Detect) Coronavirus HKU1 (PCR) Not Detected (Not Detect) Coronavirus 229E (PCR) Not Detected (Not Detect) Coronavirus NL63 (PCR) Not Detected (Not Detect) Human Metapneumovir PCR Not Detected (Not Detect) Influenza A (H1) PCR Not Detected (Not Detect) Influ A (H1N1/09) PCR Not Detected (Not Detect) Influenza A (H3) PCR Not Detected (Not Detect) Influenza A Untype (PCR) Not Detected (Not Detect) Influenza Type B (PCR) Not Detected (Not Detect) M.pneumoniae DNA (PCR) Not Detected (Not Detect) Parainfluenza 1 (PCR) Not Detected (Not Detect) Parainfluenza 2 (PCR) Not Detected (Not Detect) Parainfluenza 3 (PCR) Not Detected (Not Detect) Parainfluenza 4 (PCR) Not Detected (Not Detect) RSV (PCR) Not Detected (Not Detect) Entero/Rhino (PCR) Not Detected (Not Detect) Serology 01/13/18 01/11/18 01/11/18 Range/Units 18:16 09:08 07:56 Urine Color Yellow (Yellow) Urine Clarity Clear (Clear) Urine pH 5.5 (5.0-8.0) pH Units Ur Specific [place] 1.030 H (1.010-1.025) Urine Protein Trace (Neg-Trace) mg/dL Urine Glucose (UA) Normal (Normal) mg/dL Urine Ketones Negative (Negative) mg/dL Urine Blood Negative (Negative) Urine Nitrite Negative (Negative) Urine Bilirubin Negative (Negative) Urine Urobilinogen Normal (Normal) mg/dL Ur Leukocyte Esterase Negative (Negative) Urine Microscopic RBC 5-15 H (0-3) per hpf Urine Microscopic WBC 0-3 (0-3) per hpf Ur Squamous Epith Cells Many H (None-Few) per lpf Urine Bacteria None Seen (None-Few) per hpf Hyaline Casts None Seen (None-Few) per lpf Ur Culture Indicated? NO (NO) Stl C. diff Tox B Gene Positive (Negative) Chlamy pneumoniae PCR Not Detected (Not Detect) Adenovirus (PCR) Not Detected (Not Detect) B. pertussis DNA (PCR) Not Detected (Not Detect) B.parapertussis DNA PCR Not Detected (Not Detect) Coronavirus OC43 (PCR) Not Detected (Not Detect) Coronavirus HKU1 (PCR) Not Detected (Not Detect) Coronavirus 229E (PCR) Not Detected (Not Detect) Coronavirus NL63 (PCR) Not Detected (Not Detect) Human Metapneumovir PCR Not Detected (Not Detect) Influenza A (H1) PCR Not Detected (Not Detect) Influ A (H1N1/09) PCR Not Detected (Not Detect) Influenza A (H3) PCR Not Detected (Not Detect) Influenza A Untype (PCR) Not Detected (Not Detect) Influenza Type B (PCR) Not Detected (Not Detect) M.pneumoniae DNA (PCR) Not Detected (Not Detect) Parainfluenza 1 (PCR) Not Detected (Not Detect) Parainfluenza 2 (PCR) Not Detected (Not Detect) Parainfluenza 3 (PCR) Not Detected (Not Detect) Parainfluenza 4 (PCR) Not Detected (Not Detect) RSV (PCR) Not Detected (Not Detect) Entero/Rhino (PCR) Not Detected (Not Detect) Consult Discharge Plan - Plan Referrals: Margarito Abarca MD [Primary Care Provider] - - Attending Attestation I examined this patient and my medical decision-making was reviewed with the Resident Physician. I agree with the documented findings, disposition and treatment plan as described except to the extent set forth below. NEREIDA This is an addendum to original report dictated by Alisha Fung CNP. Please refer to Rosa note for full detail. Patient is a 77-year-old gentleman who presented to [place] with chest pain and shortness of breath. Patient apparently has COPD per records even though the patient states that he was never told he had COPD who also had recent constipation requiring stool softener who apparently as an outpatient patient was thought to have a pneumonia and was started on antibiotics. Patient started having severe diarrhea and chest pain and shortness of breath and came in to [place] for evaluation. Patient was noted to be a non-ST elevation NM and angioplasty revealed triple coronary artery disease. Workup also revealed that the patient has C. difficile colitis. CT of the chest revealed possible bronchiolitis versus atypical infection. Patient has been on broad-spectrum antibiotics for quite some time. Currently patient states that he feels better. Patient continues to have intermittent cough but chest pain or shortness of breath is better. Patient states that the diarrhea is better and more formed stool. At this point patient does have C. difficile diarrhea and is on oral vancomycin. We will dose adjust the vancomycin 225 mg every 6 hours. I reviewed the CAT scan and I am not impressed with the possible infection. I think the patient probably has bronchitis and because of his C. difficile and the high risk of prolonged antibiotic use, we will stop the antibiotics and observe and see how the patient does. If the patients clinically source doing worse we will repeat chest x-ray and restarted on empiric antibiotics. As for his coronary artery disease and triple-vessel disease, patient needs a CABG. I did speak with Dr. Hair who states that this is not urgent and can wait a week or 2. I believe the CABG can be done once the patients C. difficile improved significantly and the patient becomes asymptomatic and has formed stool. This might take a few days. Monitor labs and for trochlear drug toxicity Duration of treatment is 10-14 days
--- NOTE | 2018-01-14 16:29 | Internal Med Progress Note ---
Date of Encounter: 01/14/18 Time of Encounter: 12:00 - Assessment and plan (1) Non-ST elevation [place] (NSTEMI) Current Visit: Yes Status: Acute Assessment and plan: 1 status post [facility] 01/12/18 that showed triple-vessel disease cardiothoracic surgery has been consulted for CABG-however due to his recent episode of C. difficile colitis they are waiting for this to resolve. According to cardiothoracic progress note the patient does not need to be in the hospital until his CABG. He may be discharged and readmitted for elective CABG most likely next week. (2) Bronchiolitis Current Visit: Yes Status: Acute Assessment and plan: Seen by infectious disease most likely viral Blood cultures were obtained--negative no growth No fevers We will stop Rocephin and Zithromax (3) COPD exacerbation Current Visit: No Status: Chronic Assessment and plan: Presently stable at this time no wheezing Oxygen saturations are stable-titrate oxygen as needed maintain SPO2 very 92% Continue with bronchodilators and steroids taper- (4) Liver lesion Current Visit: Yes Status: Acute Assessment and plan: Noted liver lesion on CT scan-LFTs within normal limits Abdominal MR I with and without contrast IMPRESSION: 1. Nonenhancing 1.2 cm lesion in segment IV of liver likely surgical sales representative of a cyst. 2. Focal intrahepatic biliary ductal dilation in the left liver. No obstructing mass identified. No choledocholithiasis. Consider choledochal cyst (type V) or stricture of the bile ducts. No gross obstructing mass. 3. Benign left adrenal adenoma. Follow-up as outpatient (5) Lung nodule Current Visit: Yes Status: Acute Assessment and plan: CT follow-up in 12 months per Fleischner Society guidelines (6) Hypertension Current Visit: No Status: Chronic Assessment and plan: Presently controlled we will continue with home medications-continue to monitor Qualifiers: Hypertension type: essential hypertension Qualified Code(s): I10 - Essential (primary) hypertension (7) Obesity (BMI 30.0-34.9) Current Visit: Yes Status: Chronic Assessment and plan: Encourage lifestyle changes (8) DVT prophylaxis Current Visit: No Status: Chronic Assessment and plan: SCD (9) Clostridium difficile colitis Current Visit: Yes Status: Acute Assessment and plan: 1 secondary to recent antibiotic use. Patient reported 10 loose watery bowel movements per day he failed outpatient oral Flagyl. He has clinically improved with by mouth vancomycin. He has been experiencing less frequent stools which are more formed. Infectious disease has been consulted recommending to continue with vancomycin however to decrease the dose to 125 mg by mouth 4 times a day-duration of treatment depends on clinical picture-most likely around 10 days - Subjective Interval history: Patient states he has only had 1 bowel movement this morning denies any abdominal pain nausea vomiting or chest pain at this time. - Constitutional Vitals: Temp Pulse Resp BP Pulse Ox 98.3 F 59 15 136/78 95 01/14/18 11:46 01/14/18 11:46 01/14/18 11:46 01/14/18 11:46 01/14/18 11:46 General appearance: Present: A&O X 3, pleasant, obese - Head Head exam: Present: atraumatic, normocephalic - Eye Eye exam: Present: PERRL, conjuntiva pink, sclera anicteric Pupils: Present: PERRL - Neck Neck exam general surgery: Present: supple, trachea midline. Absent: lymphadenopathy - Respiratory Respiratory exam: Present: CTAB. Absent: accessory muscle use, rales, rhonchi, wheezes - Cardiovascular Cardiovascular exam: Present: RRR, +S1, +S2. Absent: diastolic murmur, gallop, rubs, systolic murmur - GI/Abdominal GI/Abdominal exam: Present: normal bowel sounds, soft, no peritoneal signs. Absent: distended, tenderness - Extremities Exam Extremities exam: Present: warm, radial pulses palpable and symmetrical. Absent : calf tenderness, cyanotic, pedal edema - Neurological Exam Neurological exam: Present: CN II-XII intact, oriented X3, no focal deficits. Absent: pronater drift, facial droop, speech deficit - Skin Skin exam: Present: dry, intact Internal Medicine: Result - Labs CBC & Chem 7: 01/14/18 04:19 01/14/18 04:19 Labs: Short CBC 01/14/18 Range/Units 04:19 WBC 12.1 H (4.3-11.1) K/mcL Hgb 12.0 L (12.9-16.9) g/dL Hct 37.0 L (37.5-50.1) % Plt Count 181 (140-400) K/mcL BMP 01/14/18 04:19 Sodium 141 Potassium 4.4 Chloride 110 H Carbon Dioxide 28 BUN 15 Creatinine 0.88 Glucose 120 H Calcium 8.3 L - ABG Interpretation ABG results: PT/INR, D-dimer PT 12.3 Seconds (9.4-12.1) H 01/11/18 07:08 D-Dimer 894 ng/mLFEU (0-500) H 01/11/18 07:08 Consult Discharge Plan - Plan Referrals: Margarito Abarca MD [Primary Care Provider] -
[2018-01-15] MEDS: *HR* Heparin 5,000 UNIT/ML VIAL SQ SCH ×3 (05:29→20:52)
[2018-01-15 07:46] LABS: Hematocrit 40.3 % (37.5-50.1); Hemoglobin 12.9 g/dL (12.9-16.9); Mean Corpuscular Volume 90.6 fL (83.0-100.0); Mean Platelet Volume 10.6 fL (9.4-12.4); Platelet Count 195 K/mcL (140-400); Red Blood Count 4.45 M/mcL (4.19-5.50); Red Cell Distribution Width 13.2 % (11.5-14.5)
[2018-01-15] MEDS: Lactobacillus 1 EACH CAP.SPRINK PO SCH ×2 (08:22→20:51)
[2018-01-15] MEDS: Aspirin Enteric Coated 81 MG Tablet PO SCH (08:23)
[2018-01-15] MEDS: Metoprolol XL (24 HR) Succ 50 MG TAB.ER.24H PO SCH ×2 (08:23→20:51)
[2018-01-15] MEDS: Vancomycin Oral Soln 250 MG/5 ML UDC PO SCH ×4 (08:25→20:52)
[2018-01-15] MEDS: MethylPREDNISolone 40 MG/ML VIAL IVP SCH (08:25)
[2018-01-15 08:28] LABS: BUN/Creatinine Ratio 16 (6-26); Blood Urea Nitrogen 14 mg/dL (8-23); Calcium 8.1 mg/dL (8.6-10.3); Carbon Dioxide 29 mEq/L (23-29); Chloride 107 mEq/L (98-107); Glucose 76 mg/dL (70-105); Osmolality,Calculated 291 (280-300); Potassium 3.4 mEq/L (3.5-5.1); Sodium 141 mEq/L (136-145); eGFR For African Americans > 60 (> 60); eGFR For Non-African Americans > 60 (> 60)
[2018-01-15] MEDS: Budesonide/Formoterol 80/4.5 MDI IH SCH ×2 (10:28→21:04)
[2018-01-15] MEDS: Ipratropium/Albuterol Neb 3 ML IH SCH ×2 (10:28→21:04)
--- NOTE | 2018-01-15 10:57 | Infectious Disease Progress No ---
Date of Encounter: 01/15/18 Time of Encounter: 10:54 - Assessment and Plan (1) Sepsis Current Visit: Yes Status: Acute The patient had two SIRS criteria on admission. Likely secondary to C. diff diarrhea. Improved. WBC normalized this morning. Tachycardia has resolved. Blood cultures drawn 01/11/18 are NGTD x 3 sets. Qualifiers: Sepsis type: sepsis due to unspecified organism Qualified Code(s): A41.9 - Sepsis, unspecified organism (2) Clostridium difficile colitis Current Visit: Yes Status: Acute Likely secondary to recent antibiotic use. Patient reports 10 loose, watery bowel movements per day prior to admission. Failed outpatient oral Flagyl. Initial episode, severe with WBC >15,000. Clinically improved with PO Vancomycin. The patient reports his stools are less frequent and are more formed. He does report he is having more frequent stools this morning, but there is formed stool mixed in. Continue Vancomycin 125mg PO QID. Duration of treatment depends on the clinical picture, but likely 10 days. Continue probiotic. Will ask dietary to bring the patient yogurt with each meal. (3) Bronchiolitis Current Visit: Yes Status: Acute Likely viral. CXR shows findings consistent with bronchiolitis, but no PNA. RIP negative. Antibiotics stopped 01/14/18. Continue to observe off antibiotics. (4) Non-ST elevation [place] (NSTEMI) Current Visit: Yes Status: Acute Status post [facility] 01/12/18 that showed triple-vessel disease. CTS consulted and planning to pursue CABG once C. diff has resolved. Patient reports chest pain overnight. Cardiology consulted and following. (5) Hypertension Current Visit: No Status: Chronic Qualifiers: Hypertension type: essential hypertension Qualified Code(s): I10 - Essential (primary) hypertension (6) Liver lesion Current Visit: Yes Status: Acute CTA of the abdomen and pelvis showed a nonspecific liver lesion and radiology recommended an abdominal MRI. Abdominal MRI showed findings consistent with a liver cyst and biliary duct dilatation. Consider GI referral as an outpatient. (7) Obesity (BMI 30.0-34.9) Current Visit: Yes Status: Chronic - Subjective Interval history: Patient seen and examined. No acute events noted overnight. Patient states that overall he does not feel very well today. Reports increased shortness of breath and chest pain overnight. States his shortness of breath does seem to be better since having a breathing treatment. States the diarrhea seems worse today and was gone 5 or 6 times already this morning. He does state there is some formed stool extend with the water. He denies any abdominal pain or urinary complaints. He denies any oral thrush orskin lesions. He states his appetite is good. Infect Dis PN-Objective Data - Labs CBC & Chem 7: 01/15/18 06:33 01/15/18 06:33 Labs: Laboratory Results - last 24 hr 01/11/18 01/12/18 01/12/18 20:29 07:36 12:09 WBC RBC Hgb Hct MCV MCH MCHC RDW Plt Count MPV Sodium Potassium Chloride Carbon Dioxide BUN Creatinine Est GFR ( Amer) Est GFR (Non-Af Amer) BUN/Creatinine Ratio Glucose POC Glucose 208 H 156 H 146 H Calculated Osmolality Calcium 01/12/18 01/13/18 01/13/18 19:30 08:46 19:36 WBC RBC Hgb Hct MCV MCH MCHC RDW Plt Count MPV Sodium Potassium Chloride Carbon Dioxide BUN Creatinine Est GFR ( Amer) Est GFR (Non-Af Amer) BUN/Creatinine Ratio Glucose POC Glucose 188 H 113 H 188 H Calculated Osmolality Calcium 01/14/18 01/14/18 01/14/18 08:11 12:18 16:20 WBC RBC Hgb Hct MCV MCH MCHC RDW Plt Count MPV Sodium Potassium Chloride Carbon Dioxide BUN Creatinine Est GFR ( Amer) Est GFR (Non-Af Amer) BUN/Creatinine Ratio Glucose POC Glucose 110 H 135 H 193 H Calculated Osmolality Calcium 01/14/18 01/15/18 01/15/18 20:50 06:33 06:33 WBC 10.2 RBC 4.45 Hgb 12.9 Hct 40.3 MCV 90.6 MCH 29.0 MCHC 32.0 RDW 13.2 Plt Count 195 MPV 10.6 Sodium 141 Potassium 3.4 L Chloride 107 Carbon Dioxide 29 BUN 14 Creatinine 0.89 Est GFR ( Amer) > 60 Est GFR (Non-Af Amer) > 60 BUN/Creatinine Ratio 16 Glucose 76 POC Glucose 179 H Calculated Osmolality 291 Calcium 8.1 L Cultures: Cultures 01/14/18 18:24 Legionella Antigen - Final Urine,Clean Catch Streptococcus pneumoniae Antigen (M - Final Serology 01/13/18 Range/Units 18:16 Chlamy pneumoniae PCR Not Detected (Not Detect) Adenovirus (PCR) Not Detected (Not Detect) B. pertussis DNA (PCR) Not Detected (Not Detect) B.parapertussis DNA PCR Not Detected (Not Detect) Coronavirus OC43 (PCR) Not Detected (Not Detect) Coronavirus HKU1 (PCR) Not Detected (Not Detect) Coronavirus 229E (PCR) Not Detected (Not Detect) Coronavirus NL63 (PCR) Not Detected (Not Detect) Human Metapneumovir PCR Not Detected (Not Detect) Influenza A (H1) PCR Not Detected (Not Detect) Influ A (H1N1/09) PCR Not Detected (Not Detect) Influenza A (H3) PCR Not Detected (Not Detect) Influenza A Untype (PCR) Not Detected (Not Detect) Influenza Type B (PCR) Not Detected (Not Detect) M.pneumoniae DNA (PCR) Not Detected (Not Detect) Parainfluenza 1 (PCR) Not Detected (Not Detect) Parainfluenza 2 (PCR) Not Detected (Not Detect) Parainfluenza 3 (PCR) Not Detected (Not Detect) Parainfluenza 4 (PCR) Not Detected (Not Detect) RSV (PCR) Not Detected (Not Detect) Entero/Rhino (PCR) Not Detected (Not Detect) Exam - Constitutional Vitals: Temp Pulse Resp BP Pulse Ox 97.5 F L 57 15 166/84 96 01/15/18 07:43 01/15/18 07:43 01/15/18 07:43 01/15/18 07:43 01/15/18 08:36 General appearance: cooperative, no acute distress, obese - Head Head exam: Present: atraumatic, normal inspection, normocephalic - Eye Eye exam: Present: EOMI, normal appearance, PERRL Pupils: Present: normal accommodation - ENT ENT exam: Present: mucous membranes moist - Neck Neck exam: Present: normal inspection - Respiratory Respiratory exam: Present: CTAB. Absent: rales, respiratory distress, rhonchi, wheezes - Cardiovascular Cardiovascular exam: Present: RRR, +S1, +S2 - GI/Abdominal GI/Abdominal exam: Present: distended (obese), normal bowel sounds, soft. Absent: tenderness - Extremities Exam Extremities exam: Present: normal inspection. Absent: joint swelling, pedal edema, tenderness - Neurological Exam Neurological exam: Present: alert, oriented X3, no focal deficits - Psychiatric Psychiatric exam: Present: normal affect, normal mood - Skin Skin exam: Present: dry, intact, normal color, warm Consult Discharge Plan - Plan Referrals: Margarito Abarca MD [Primary Care Provider] - - Attending Attestation I examined this patient and my medical decision-making was reviewed with the Resident Physician. I agree with the documented findings, disposition and treatment plan as described except to the extent set forth below. Patient seen and examined appears comfortable lying in bed had some chest pain earlier but had then resolved. I went over CAT scan with Dr. Hair and showed in the CAT scan findings to discuss whether he is okay with taken to surgery without antibiotics for possible bronchitis. We discussed that giving antibiotics can make his C. difficile worse and put him at high risk postsurgical. At this point will continue to monitor no antibiotics for the lungs discontinue with oral vancomycin.
--- NOTE | 2018-01-15 15:31 | Internal Med Progress Note ---
Date of Encounter: 01/15/18 Time of Encounter: 15:22 - Assessment and plan (1) Non-ST elevation [place] (NSTEMI) Current Visit: Yes Status: Acute Assessment and plan: Patient had a left heart cath on 01/12/18 that showed triple-vessel disease. Cardiothoracic surgery was consulted for CABG but prefer to wait resolution of C. difficile colitis before proceeding with the procedure. According to the notes the patient does not need to be in the hospital until his CABG, he may be discharged and readmitted for elective CABG, most likely next week. (2) COPD exacerbation Current Visit: No Status: Chronic Assessment and plan: Non-exacerbated on room air No wheeze on lung exam Harsh cough on forced expiration (3) Hypertension Current Visit: No Status: Chronic Assessment and plan: Blood pressure is stable continue home medications Qualifiers: Hypertension type: essential hypertension Qualified Code(s): I10 - Essential (primary) hypertension (4) Bronchiolitis Current Visit: Yes Status: Acute Assessment and plan: Likely viral in nature, no further antibiotics which were stopped 01/14/18, continue to observe off all antibiotics RIP negative Infectious disease following the patient. Blood cultures negative on preliminary 3 sets Legionella antigen and Streptococcus pneumoniae negative Afebrile Chest x-ray shows findings consistent with bronchiolitis not pneumonia. (5) Liver lesion Current Visit: Yes Status: Acute Assessment and plan: Liver lesion noted on CT scan LFTs within normal limits Abdominal MRI obtained with impression of nonenhancing 1.2 cm lesion in segment 4 of liver likely apprenticeship training representative of a cyst. Focal intrahepatic biliary ductal dilation in the left liver. No obstructing mass identified. No choledocholithiasis. Consider choledochocyst or stricture of the bile ducts. No gross obstructing mass. Benign left adrenal adenoma noted Follow-up as outpatient (6) Lung nodule Current Visit: Yes Status: Acute Assessment and plan: Follow-up CT of the chest in 12 months per Fleischner Society guidelines (7) Obesity (BMI 30.0-34.9) Current Visit: Yes Status: Chronic Assessment and plan: Lifestyle and diet modification changes (8) DVT prophylaxis Current Visit: No Status: Chronic Assessment and plan: Heparin subcutaneous every 8 hours and SCDs (9) Clostridium difficile colitis Current Visit: Yes Status: Acute Assessment and plan: Secondary to recent antibiotic use. Patient reported up to 10 loose watery bowel movements per day while he was on outpatient oral Flagyl. Initial episode with a white count of greater than 15,000. Was started on oral vancomycin and had improvement reporting decreased stool and more formed bowel movements. Today he stated he had increased number of bowel movements with increased amount of liquid mixed with soft stools. He states he does not feel well today Continue vancomycin 125 mg by mouth 4 times a day next line duration of treatment depends on the clinical picture but according to infectious disease likely 10 day course of treatment. Continue the probiotics Add yogurt to each meal tray Infectious disease is following - Time Spent With Patient Total time spent is greater than 50% in coordination of care (as documented) at patient's floor/unit and/or counseling patient: - Constitutional Vitals: Temp Pulse Resp BP Pulse Ox 97.8 F 67 17 164/88 96 01/15/18 11:28 01/15/18 11:28 01/15/18 11:28 01/15/18 11:28 01/15/18 11:28 General appearance: Present: A&O X 3, pleasant, obese Internal Medicine: Result - Labs CBC & Chem 7: 01/15/18 06:33 01/15/18 06:33 Labs: Short CBC 01/15/18 Range/Units 06:33 WBC 10.2 (4.3-11.1) K/mcL Hgb 12.9 (12.9-16.9) g/dL Hct 40.3 (37.5-50.1) % Plt Count 195 (140-400) K/mcL BMP 01/15/18 06:33 Sodium 141 Potassium 3.4 L Chloride 107 Carbon Dioxide 29 BUN 14 Creatinine 0.89 Glucose 76 Calcium 8.1 L - ABG Interpretation ABG results: PT/INR, D-dimer PT 12.3 Seconds (9.4-12.1) H 01/11/18 07:08 D-Dimer 894 ng/mLFEU (0-500) H 01/11/18 07:08 Consult Discharge Plan - Plan Referrals: Margarito Abarca MD [Primary Care Provider] -
[2018-01-15] MEDS ORDERED: Benzonatate 100 MG CAPSULE PO PRN (15:56)
[2018-01-16] MEDS: *HR* Heparin 5,000 UNIT/ML VIAL SQ SCH (04:58)
[2018-01-16 08:05] LABS: BUN/Creatinine Ratio 19 (6-26); Blood Urea Nitrogen 16 mg/dL (8-23); Calcium 9.1 mg/dL (8.6-10.3); Carbon Dioxide 32 mEq/L (23-29); Chloride 103 mEq/L (98-107); Glucose 88 mg/dL (70-105); Osmolality,Calculated 289 (280-300); Potassium 3.8 mEq/L (3.5-5.1); Sodium 139 mEq/L (136-145); eGFR For African Americans > 60 (> 60); eGFR For Non-African Americans > 60 (> 60)
[2018-01-16 08:21] LABS: Hematocrit 44.2 % (37.5-50.1); Mean Corpuscular HGB Conc 32.8 g/dL (31.6-35.5); Mean Corpuscular Hemoglobin 29.1 pg (28.0-33.3); Mean Corpuscular Volume 88.6 fL (83.0-100.0); Mean Platelet Volume 10.1 fL (9.4-12.4); Platelet Count 238 K/mcL (140-400); Red Blood Count 4.99 M/mcL (4.19-5.50)
[2018-01-16 08:22] LABS: Hemoglobin 14.5 g/dL (12.9-16.9)
--- NOTE | 2018-01-16 09:15 | Cardiothoracic Progress Note ---
Date of Encounter: 01/16/18 Time of Encounter: 08:47 - Assessment and plan (1) Non-ST elevation [place] (NSTEMI) Current Visit: Yes Status: Acute The patient is a 77-year-old man who presented to [facility] with diarrhea and substernal chest pressure. He was found to have elevated troponin I levels consistent with an acute NSTEMI. He underwent cardiac catheterization yesterday was found to have severe 3 vessel CAD and an LVEF 60% . He has been recommended for CABG. With the patient's profuse diarrhea, he had a C. difficile toxin screen performed which was positive. The patient is currently being treated for C. difficile colitis with oral vancomycin and for COPD exacerbation with oral prednisone. Once the patient's C. difficile colitis resolves and the toxin is negative, and the patient's COPD exacerbation has been treated and he is off prednisone, he will undergo elective CABG. I discussed the patient's case with Dr. Geovanny Hernández, the patient's control cabinet assembler, he does not believe that the patient needs to remain in the hospital until his CABG. The patient may be discharged at the hospitalist discretion and he will be readmitted for elective CABG probably next week. The assessment and plan as outlined above was discussed with the patient and/or family members who expressed understanding and agreement. All questions were answered. - Subjective Interval history: The patient is resting comfortably in his hospital bed. He remained hemodynamically stable overnight. He had a short period of substernal chest pressure last evening which resolved spontaneously. His bowel movements are less frequent, but remain loose. Vital Signs, Last 4 Hours Temp Pulse Resp BP Pulse Ox 01/16/18 07:12 97.9 F 63 16 163/82 94 Oxgyen Flow Rate Oxygen Flow Rate (LPM) 0 Weight 01/14/18 01/15/18 01/16/18 23:59 23:59 23:59 Weight 106.7 kg 105.9 kg - Physical Examination General: Conversant, No Apparent Distress Neck: No JVD, Normal carotid pulses Cardiac: Reg Rate and Rhythm, Normal S1 and S2, No Murmur Lungs: Normal Breath Sounds, No Wheeze, Rales, Rhonchi Neuro: Alert and responsive, No focal deficits noted Vascular: Normal capillary refill Extremities: No Clubbing, No Cyanosis, No Edema - Labs 04/04/18 07:34 01/16/18 07:34 Lab Results, Last 24 hours 01/16/18 01/16/18 07:34 07:34 WBC 14.1 H Hgb 14.5 D Hct 44.2 Plt Count 238 Sodium 139 Potassium 3.8 Chloride 103 Carbon Dioxide 32 H BUN 16 Creatinine 0.85 Glucose 88 Calcium 9.1 Consult Discharge Plan - Plan Referrals: Margarito Abarca MD [Primary Care Provider] -
[2018-01-16] MEDS: Ipratropium/Albuterol Neb 3 ML IH SCH (10:26)
[2018-01-16] MEDS: Budesonide/Formoterol 80/4.5 MDI IH SCH (10:26)
[2018-01-16] MEDS: Lactobacillus 1 EACH CAP.SPRINK PO SCH (10:32)
[2018-01-16] MEDS: Metoprolol XL (24 HR) Succ 50 MG TAB.ER.24H PO SCH (10:32)
[2018-01-16] MEDS: MethylPREDNISolone 40 MG/ML VIAL IVP SCH (10:33)
[2018-01-16] MEDS: Aspirin Enteric Coated 81 MG Tablet PO SCH (10:33)
[2018-01-16] MEDS: Vancomycin Oral Soln 250 MG/5 ML UDC PO SCH ×2 (10:34→16:17)
--- NOTE | 2018-01-16 11:08 | Infectious Disease Progress No ---
Date of Encounter: 01/16/18 Time of Encounter: 11:06 - Assessment and Plan (1) Sepsis Current Visit: Yes Status: Acute The patient had two SIRS criteria on admission. Likely secondary to C. diff diarrhea. Improved. WBC back up, likely secondary to steroids. Tachycardia has resolved. Blood cultures drawn 01/11/18 are negative x 3 sets. Qualifiers: Sepsis type: sepsis due to unspecified organism Qualified Code(s): A41.9 - Sepsis, unspecified organism (2) Clostridium difficile colitis Current Visit: Yes Status: Acute Likely secondary to recent antibiotic use. Patient reports 10 loose, watery bowel movements per day prior to admission. Failed outpatient oral Flagyl. Initial episode, severe with WBC >15,000. Clinically improved with PO Vancomycin. The patient reports his stools are less frequent and are more formed. He states the frequency of his stools are improved today. Continue Vancomycin 125mg PO QID (day 6). Duration of treatment depends on the clinical picture, but likely 10 days from when antibiotics were stopped. Continue probiotic. Will ask dietary to bring the patient yogurt with each meal. (3) Bronchiolitis Current Visit: Yes Status: Acute Likely viral. CXR shows findings consistent with bronchiolitis, but no PNA. RIP negative. Antibiotics stopped 01/14/18. Continue to observe off antibiotics. (4) Non-ST elevation [place] (NSTEMI) Current Visit: Yes Status: Acute Status post [facility] 01/12/18 that showed triple-vessel disease. CTS consulted and planning to pursue CABG once C. diff has resolved. Patient reports chest pain overnight, improved at this time. Cardiology consulted and following. (5) Hypertension Current Visit: No Status: Chronic Qualifiers: Hypertension type: essential hypertension Qualified Code(s): I10 - Essential (primary) hypertension (6) Liver lesion Current Visit: Yes Status: Acute CTA of the abdomen and pelvis showed a nonspecific liver lesion and radiology recommended an abdominal MRI. Abdominal MRI showed findings consistent with a liver cyst and biliary duct dilatation. Consider GI referral as an outpatient. (7) Obesity (BMI 30.0-34.9) Current Visit: Yes Status: Chronic - Subjective Interval history: Patient seen and examined. No acute events noted overnight. Patient states that he feels better today. He reports the diarrhea is better and he has only had two BMs so far this morning. States he had an episode of chest pain this morning, relieved on its own. Denies shortness of breath today. States dry hacky cough persists. He denies any abdominal pain or urinary complaints. He denies any oral thrush or skin lesions. He states his appetite is good. Infect Dis PN-Objective Data - Labs CBC & Chem 7: 01/16/18 07:34 01/16/18 07:34 Labs: Laboratory Results - last 24 hr 01/15/18 01/15/18 01/15/18 07:41 11:22 17:18 WBC RBC Hgb Hct MCV MCH MCHC RDW Plt Count MPV Sodium Potassium Chloride Carbon Dioxide BUN Creatinine Est GFR ( Amer) Est GFR (Non-Af Amer) BUN/Creatinine Ratio Glucose POC Glucose 78 107 H 128 H Calculated Osmolality Calcium 01/15/18 01/16/18 01/16/18 20:42 07:34 07:34 WBC 14.1 H RBC 4.99 Hgb 14.5 D Hct 44.2 MCV 88.6 MCH 29.1 MCHC 32.8 RDW 13.0 Plt Count 238 MPV 10.1 Sodium 139 Potassium 3.8 Chloride 103 Carbon Dioxide 32 H BUN 16 Creatinine 0.85 Est GFR ( Amer) > 60 Est GFR (Non-Af Amer) > 60 BUN/Creatinine Ratio 19 Glucose 88 POC Glucose 132 H Calculated Osmolality 289 Calcium 9.1 Cultures: Cultures 01/14/18 18:24 Legionella Antigen - Final Urine,Clean Catch Streptococcus pneumoniae Antigen (M - Final Serology 01/13/18 Range/Units 18:16 Chlamy pneumoniae PCR Not Detected (Not Detect) Adenovirus (PCR) Not Detected (Not Detect) B. pertussis DNA (PCR) Not Detected (Not Detect) B.parapertussis DNA PCR Not Detected (Not Detect) Coronavirus OC43 (PCR) Not Detected (Not Detect) Coronavirus HKU1 (PCR) Not Detected (Not Detect) Coronavirus 229E (PCR) Not Detected (Not Detect) Coronavirus NL63 (PCR) Not Detected (Not Detect) Human Metapneumovir PCR Not Detected (Not Detect) Influenza A (H1) PCR Not Detected (Not Detect) Influ A (H1N1/09) PCR Not Detected (Not Detect) Influenza A (H3) PCR Not Detected (Not Detect) Influenza A Untype (PCR) Not Detected (Not Detect) Influenza Type B (PCR) Not Detected (Not Detect) M.pneumoniae DNA (PCR) Not Detected (Not Detect) Parainfluenza 1 (PCR) Not Detected (Not Detect) Parainfluenza 2 (PCR) Not Detected (Not Detect) Parainfluenza 3 (PCR) Not Detected (Not Detect) Parainfluenza 4 (PCR) Not Detected (Not Detect) RSV (PCR) Not Detected (Not Detect) Entero/Rhino (PCR) Not Detected (Not Detect) Exam - Constitutional Vitals: Temp Pulse Resp BP Pulse Ox 97.9 F 63 16 163/82 94 01/16/18 07:12 01/16/18 07:12 01/16/18 07:12 01/16/18 07:12 01/16/18 07:12 General appearance: cooperative, no acute distress, obese - Head Head exam: Present: atraumatic, normal inspection, normocephalic - Eye Eye exam: Present: EOMI, normal appearance, PERRL Pupils: Present: normal accommodation - ENT ENT exam: Present: mucous membranes moist - Neck Neck exam: Present: normal inspection - Respiratory Respiratory exam: Present: CTAB. Absent: rales, respiratory distress, rhonchi, wheezes - Cardiovascular Cardiovascular exam: Present: RRR, +S1, +S2 - GI/Abdominal GI/Abdominal exam: Present: distended (obese), normal bowel sounds, soft. Absent: tenderness - Extremities Exam Extremities exam: Present: normal inspection. Absent: joint swelling, pedal edema, tenderness - Neurological Exam Neurological exam: Present: alert, oriented X3, no focal deficits - Psychiatric Psychiatric exam: Present: normal affect, normal mood - Skin Skin exam: Present: dry, intact, normal color, warm - Additional findings Additional findings: Right groin site C/D/I. Consult Discharge Plan - Plan Referrals: Margarito Abarca MD [Primary Care Provider] - - Attending Attestation I examined this patient and my medical decision-making was reviewed with the Resident Physician. I agree with the documented findings, disposition and treatment plan as described except to the extent set forth below.
[2018-01-16 11:38] VITALS: BP 137/75
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
== END 2018-01-16 16:53 | disposition home or self-care (01) | DRG 280 ==
LOC: 3BNU 06:55 → EMEROO 06:55 → MERGE 06:55 → 3BNU 12:55
PROVIDERS: ADMIT Hospitalist; ATTEND Registered Nurse

== ENCOUNTER 2018-01-24 06:34 | Inpatient (IN) ==
--- NOTE | 2018-01-17 12:27 | Anesthesia Evaluation PreOp ---
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 diff. coloitis) Anesthesia History: No Prior Anesthetic Complications, Past Anesthesia (appy) Alcohol Use: none, occasionally Drug use: none Medications and Allergies Aspirin [Adult Low Dose Aspirin EC] 81 mg PO DAILY 10/15/15 [History] Vitamin D3/Folic Acid [Ortho D 3,775 Unit-1 mg Cap] 1 cap PO DAILY 10/15/15 [ History] Albuterol Sulfate [Proventil Hfa] 1 puff IH BID PRN 01/11/18 [History] Ipratropium/Albuterol Neb [Duoneb] 3 ml IH BID 01/11/18 [History] Losartan Potassium [Cozaar] 50 mg PO DAILY 01/11/18 [History] Metoprolol Succinate [Toprol Xl] 50 mg PO BID 01/11/18 [History] Simvastatin [Zocor] 40 mg PO HS 01/11/18 [History] Lactobacillus [Culturelle] 1 each PO BID #14 cap.sprink 01/16/18 [Rx] predniSONE [PredniSONE] 10 mg PO DAILY #30 tablet 01/16/18 [Rx] Albuterol Neb [Proventil Neb] 2.5 mg PO BID PRN 01/24/18 [History] 3 Allergy/AdvReac Type Severity Reaction Status Date / Time No Known Allergies Allergy Verified 01/24/18 07:21 - Meds/Allergy Pre-op Review Medications Reviewed: Yes Allergies Reviewed: Yes Beta Blockers on Current Med List: Yes If Beta Blockers taken, Date/Time (Last Dose taken): today 0530 Anesthesia Results - Labs Laboratory Tests 01/16/18 01/16/18 07:34 07:34 WBC 14.1 H Hgb 14.5 D Hct 44.2 Plt Count 238 Sodium 139 Potassium 3.8 BUN 16 Creatinine 0.85 - Imaging EKG: report reviewed (SINUS RHYTHM WITH OCCASIONAL SUPRAVENTRICULAR PREMATURE COMPLEXES LEFT AXIS DEVIATION [QRS AXIS < -30]) Additional studies: cath: Impressions: There is severe three vessel coronary artery disease. The left ventricle is normal and has normal contractility EF 60% echo: Impressions: LVEF 60-65%. Mild left ventricular diastolic dysfunction. Definity echo contrast was used. Normal right ventricular structure and function. No significant valvular dysfunction. No pulmonary hypertension. 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 Agrees to proceed.)
[~2018-01-24 06:34] MED LIST: Dextrose 50 % in Water (Vial) 30 ML, Sodium Bicarbonate 20 MEQ, Potassium Chloride 15 M... TH ONE; Insulin Human Regular 100 UNIT in 0.9 % Sodium Chloride 100 ML IV PRN; Norepinephrine 4 MG in D5% in Water 250 ML IVC PRN
[2018-01-24] MEDS ORDERED: Aspirin 81 MG TAB.CHEW PO ONE (06:55)
[2018-01-24] MEDS ORDERED: CeFAZolin Syr 2,000MG/20 ML 2,000 MG/20 ML SYRINGE IVPB ONE (06:55)
[2018-01-24] MEDS ORDERED: Albuterol 2.5 MG/3 ML NEBULIZER IH ONE (07:00)
[2018-01-24] MEDS ORDERED: Albuterol 2.5 MG/3 ML NEBULIZER ONE (07:01)
[2018-01-24] MEDS ORDERED: *HR* Rocuronium Bromide 50 MG/5 ML VIAL ONE (07:13)
[2018-01-24] MEDS ORDERED: Tranexamic Acid 1,000 MG/10 ML VIAL ONE ×2 (07:14→09:39)
[2018-01-24] MEDS ORDERED: *HR* Etomidate 20 MG/10 ML AMPUL IVP ONE (07:14)
[2018-01-24] MEDS ORDERED: Protamine Sulfate 250 MG/25 ML VIAL IVP ONE (07:14)
[2018-01-24] MEDS ORDERED: Famotidine 20 MG/2 ML VIAL ONE (07:14)
[2018-01-24] MEDS ORDERED: *HR* Midazolam HCl 5 MG/5 ML VIAL IVP ONE (07:21)
[2018-01-24] MEDS ORDERED: *HR* FentaNYL (PF) 1,000 MCG/20 ML VIAL ONE (07:22)
[2018-01-24] MEDS ORDERED: *HR* PHENYLEPHRINE 1,000 MCG/10 ML SYRINGE IVP ONE (07:26)
[2018-01-24] MEDS ORDERED: Nitroglycerin 25 MG/250 ML INFUS..BTL IVC ONE ×2 (07:27→12:03)
[2018-01-24] MEDS: Ringers Solution, Lactated 1,000 ML IVC SCH (07:28)
--- NOTE | 2018-01-24 07:56 | History & Physical Report ---
Date of Encounter: 01/24/18 Time of Encounter: 07:55 24 Hour HP Update - Instructions Instructions: If the History and Physical is less than 30 days old and was completed prior to A.M. admission and or procedure and has NOT been updated on calendar day of procedure please complete this update prior to performing procedure. - Update Patient reports changes in Medical Condition: No Changes in examination, assessment, or condition: No Changes in Medication: No Preop tests/diagnostics Reviewed: Yes Surgery Remains Indicated: Yes Consent for Planned Operative Procedure(s) Verified: Yes - Pre-Operative Checklist Preoperative Checklist Indicated: No Prophylactic Antibiotic Ordered: Yes Home Medications Include Beta Jazmin: Yes Beta Jazmin Taken Today (Day of Surgery): Yes Beta Jazmin Taken Yesterday (Day Prior to Surgery): Yes Is VTE Prophylaxis Indicated?: NO
[2018-01-24] MEDS ORDERED: Insulin Human Regular 100 UNIT in 0.9 % Sodium Chloride 100 ML IV PRN (08:15)
[2018-01-24] MEDS ORDERED: Dextrose 50 % in Water (Vial) 30 ML, Sodium Bicarbonate 20 MEQ, Potassium Chloride 15 M... TH ONE (08:15)
[2018-01-24] MEDS ORDERED: Norepinephrine 4 MG in D5% in Water 250 ML IVC PRN (08:15)
[2018-01-24 08:50] LABS: ABG Base Excess 0 mEq/L (-2 to 3); ABG Chloride 104 mEq/L (98-107); ABG Glucose 100 mg/dL (60-95); ABG HCO3 26 mEq/L (21-27); ABG Ionized Calcium 1.16 mmol/L (1.15-1.35); ABG Oxygen Saturation 99 % (95-98); ABG PCO2 49 mmHg (35-45); ABG PH 7.33 pH Units (7.32-7.45); ABG PO2 163 mmHg (85-104); ABG TCO2 28 mEq/L (20-26)
[2018-01-24 09:44] LABS: ABG Base Excess -2 mEq/L (-2 to 3); ABG Chloride 107 mEq/L (98-107); ABG Glucose 141 mg/dL (60-95); ABG HCO3 26 mEq/L (21-27); ABG Ionized Calcium 1.01 mmol/L (1.15-1.35); ABG Oxygen Saturation 98 % (95-98); ABG PCO2 59 mmHg (35-45); ABG PH 7.25 pH Units (7.32-7.45); ABG PO2 119 mmHg (85-104); ABG TCO2 28 mEq/L (20-26)
--- NOTE | 2018-01-24 10:00 | Anesthesia Procedures ---
Date of Encounter: 01/24/18 Time of Encounter: 08:25 Procedures: Anesthesia - Arterial Line Consent obtained: written consent Time out performed: Yes Sedation: Versed (mg): 2 Sedation: Fentanyl (mcg): 100 Supplemental Oxygen via Nasal Cannula (L/min): 2 Local Anesthetic: Lidocaine 1% Amount of Anesthetic used (mls): 1 Size (Gauge): 20 Length (inches): 5 Technique Used: sterile prep, guide wire technique, direct puncture technique Post-Procedure: line taped into place, dry sterile dressing placed Patient tolerated procedure: well, no complications Complications: none Site: Radial L - Central Line Placement Right IJ Consent obtained: written consent Time out performed: Yes Patient placed on monitor/pulse ox: Yes prep: mask, gown, gloves Central line prep: Chlorhexidine scrub Ultrasound used for placement: Yes Technique: Seldinger Lumen Inserted: Introducer Post procedure: sutured in place, good blood return, all ports aspirated, flushed, capped, sterile dressing applied Patient tolerated procedure: well, no complications Complications: none Comments: introducer placed easily. [place] passed without arrythmias, wedge approx 55cm
[2018-01-24 10:21] LABS: ABG Base Excess 2 mEq/L (-2 to 3); ABG Chloride 98 mEq/L (98-107); ABG Glucose 196 mg/dL (60-95); ABG HCO3 28 mEq/L (21-27); ABG Ionized Calcium 0.99 mmol/L (1.15-1.35); ABG Oxygen Saturation 100 % (95-98); ABG PCO2 51 mmHg (35-45); ABG PH 7.35 pH Units (7.32-7.45); ABG PO2 597 mmHg (85-104); ABG TCO2 30 mEq/L (20-26)
[2018-01-24 10:59] LABS: ABG Base Excess -1 mEq/L (-2 to 3); ABG Chloride 99 mEq/L (98-107); ABG Glucose 140 mg/dL (60-95); ABG HCO3 25 mEq/L (21-27); ABG Ionized Calcium 1.03 mmol/L (1.15-1.35); ABG Oxygen Saturation 100 % (95-98); ABG PCO2 43 mmHg (35-45); ABG PH 7.36 pH Units (7.32-7.45); ABG PO2 482 mmHg (85-104); ABG TCO2 26 mEq/L (20-26)
[2018-01-24 11:48] LABS: ABG Base Excess -4 mEq/L (-2 to 3); ABG Chloride 108 mEq/L (98-107); ABG Glucose 85 mg/dL (60-95); ABG HCO3 23 mEq/L (21-27); ABG Ionized Calcium 1.24 mmol/L (1.15-1.35); ABG Oxygen Saturation 97 % (95-98); ABG PCO2 54 mmHg (35-45); ABG PH 7.24 pH Units (7.32-7.45); ABG PO2 111 mmHg (85-104); ABG TCO2 25 mEq/L (20-26)
--- NOTE | 2018-01-24 12:02 | Operative Note ---
Date of procedure: 01/24/18 Pre-op diagnosis: NSTEMI Post-op diagnosis: same Procedure: 1. CABG3 (REESE to LAD, SVG to OM 2, SVG to PDA). 2. Endoscopic vein harvesting, greater saphenous vein from right lower extremity. Implants: None. Complications: None. Anesthesia: OZZIEA Surgeon: Danya Hair Was there an recovery assistant present: Yes Analytics Analyst: Chava Petersen Estimated blood loss (cc): 500 Specimen: None Disposition: ICU Procedure in Detail: INDICATIONS FOR OPERATION: Patient is a 77-year-old hypertensive man with hypercholesterolemia and a history of severe COPD. He had a recent COPD exacerbation was treated with oral antibiotics. Shortly thereafter he developed diarrhea. The patient was evaluated and the stool was positive for the Clostridium difficile toxin. He was admitted for antibiotic therapy. During his admission workup he was found to have elevated troponin I levels and was recommended for cardiac workup. The patient underwent a transthoracic echocardiogram which revealed an LVEF 60- 65% with normal left ventricular size and function. He had no significant valvular dysfunction. Subsequent cardiac catheterization revealed severe 3 vessel CAD including a 95% mid LAD lesion, a 95% proximal LCx lesion, and platelet occluded mid LCx, and a 90% distal RCA lesion. He was recommended for CABG; however, he was treated for 8 days with oral vancomycin to help resolve his resolve his Clostridium difficile colitis. He is now admitted for elective CABG. FINDINGS AT OPERATION: The aorta was of normal caliber without calcification. The coronary arteries measured proximally 1.5-2 maneuvers diameter and had mild to moderate distal disease. The OM1 branch was a small myocardial vessel which was diffusely diseased. An attempt was made to bypass this vessel; however, upon opening the structure the vessel was found to be non-bypassable. The OM1 branch was closed rather than bypassing it and it is possible that the vessel was occluded during this closure. The greater saphenous vein was harvested endoscopically from the right lower extremity from the knee to the groin and was of good quality. Total bypass time was 77 minutes, cross-clamp time 48 minutes, intentional hypothermia of 35.1 degrees centigrade. DESCRIPTION OF OPERATION: After obtaining informed operative consent from the patient, he was taken to the operating room where a satisfactory general endotracheal anesthetic was induced. Appropriate monitoring lines were placed and the patient's chest, abdomen, and lower extremity were prepped and draped in a sterile fashion. The greater saphenous vein was harvested from the right lower extremity from the knee to groin. The vein was removed, distended, and found to be of good quality. The subcutaneous tissue and skin edges were reapproximated running Vicryl sutures. Simultaneously, a standard median sternotomy incision was made and the sternum divided. The REESE was taken down from its bed and side branches divided between hemoclips. The sternum was the pericardium opened and reflected laterally. The patient was prepared for cannulation by placing pursestring sutures the distal ascending aorta, mid-ascending aorta, and right atrial appendage. The patient was heparinized and when the ACT was greater than 200 seconds, the distal ascending aorta was cannulated followed by placement of a dual stage venous cannula through the right atrial appendage and into the inferior vena cava. A stab-and antegrade metabolic and is placed in the mid-ascending aorta. The patient was placed on bypass attempts allowed to drift to 35.1 degrees centigrade. The distal targets were identified and the aorta was crossclamped. The patient received 700 mL of cold antegrade crystalloid cardioplegia through the aortic root and the patient's heart obtained rapid diastolic arrest. The PDA was opened be blade and the vein was anastomosed in an end-to- side fashion using running 7-0 Prolene suture. The anastomosis found to be hemostatic. The LCx/distal OM2 branch was opened with a [place] blade and the vein anastomosed in end-to-side fashion using running 7-0 Prolene suture. The anastomosis found to be hemostatic, and the patient received a final dose of cold antegrade crystalloid cardioplegia through the aortic root. The OM1 branch was found to be intramyocardial. This was a smaller vessel however it was thought that this vessel should be bypassed since the cardiac catheterization revealed a 90% proximal lesion. The vessels was opened; however , it was found to be small and diffusely diseased. This vessel could not be bypassed and the decision was made to close the arteriotomy. It is possible that the vessel was occluded during the closure given its small size. The LAD was opened with a [place] blade and the REESE was anastomosed in end-to-side fashion to the LAD using a running 7-0 Prolene suture. The anastomosis was found to be hemostatic and the mammary pedicle was tacked to the epicardium using interrupted 5-0 silk suture. Rewarming was begun during this anastomosis. The aortic cross-clamp was released and the heart distended. The veins were measured and cut appropriate lengths. A partial occluding clamp was placed across the mid ascending aorta and the antegrade cardioplegia cannula was removed. An additional aortotomy incision was then made 11 blade and both sites were enlarged with 4 mm punch. The veins were anastomosed in an end-to- side fashion to the aorta using a running 5-0 Prolene suture. The vein grafts were occluded with bulldog clamps and de-aired the 25-gauge needle prior to removing the partial occluding clamp. The proximal and distal anastomoses were found to be hemostatic and the proximal anastomoses were marked with radiopaque loops. Two right ventricular temporary epicardial pacing lesion placed, and 3 chest tubes were placed, 2 in the mediastinum and one into the left pleural space. During rewarming the patient's heart regained normal sinus rhythm spontaneously. When the patient's systemic temperature reached 36 degrees centigrade, he was ventilated and received volume. He was weaned from bypass required no inotropic support. Protamine was administered and the aortic and venous cannulae were removed. The pursestring sutures were secured. The aortic cannulation site was reinforced with a pledgeted 4-0 Prolene suture and the venous cannulation site was reinforced with a running 4-0 Prolene suture. The epicardium was loosely approximated in the midline, covering the ascending aorta and the right ventricle. The sternum was reapproximated using doubled wires. The pectoralis major fascia, rectus abdominis fascia, subcutaneous tissue, and skin edges were reapproximated running Vicryl sutures. A negative pressure sterile dressing was applied to the sternotomy incision and sterile dressings were applied to the leg incision. The patient was transferred to the ICU in satisfactory postoperative condition. There were no intraoperative complications, and the instrument, needle, and sponge count were corrected and of operation. - Open Heart Detail MACR (Internal Mammary Artery) Usage: Yes Cardiopulmonary Bypass Time (mins): 77 Aortic Cross Clamp Time (mins): 48 Intentional Hypothermia Temperature (C.): 35.1
[2018-01-24] MEDS ORDERED: *HR* Dextrose 50 % in Water (Syg) 50 ML SYRINGE IVP PRN (12:21)
[2018-01-24] MEDS ORDERED: Acetaminophen 650 MG RECTAL SUPP RC PRN (12:21)
[2018-01-24] MEDS ORDERED: Acetaminophen 325 MG TABLET PO PRN (12:21)
[2018-01-24] MEDS ORDERED: Naloxone 0.4 MG/ML INJ IVP PRN (12:21)
[2018-01-24] MEDS ORDERED: Potassium Chloride 40 MEQ/200 ML BAG IVPB PRN (12:21)
[2018-01-24] MEDS ORDERED: Insulin Regular, Human 100 UNIT/ML IV PRN (12:21)
[2018-01-24] MEDS ORDERED: Calcium Chloride 1,000 MG in 0.9 % Sodium Chloride 100 ML IVPB PRN (12:21)
[2018-01-24 12:42] LABS: Hematocrit 32.9 % (37.5-50.1); Hemoglobin 10.6 g/dL (12.9-16.9); Mean Corpuscular HGB Conc 32.2 g/dL (31.6-35.5); Mean Corpuscular Hemoglobin 29.6 pg (28.0-33.3); Mean Corpuscular Volume 91.9 fL (83.0-100.0); Mean Platelet Volume 9.2 fL (9.4-12.4); Platelet Count 131 K/mcL (140-400); Red Blood Count 3.58 M/mcL (4.19-5.50); Red Cell Distribution Width 13.6 % (11.5-14.5)
[2018-01-24 12:46] LABS: ABG Base Excess 0 mEq/L (-2 to 3); ABG HCO3 28 mEq/L (21-27); ABG Oxygen Saturation 100 % (95-98); ABG PCO2 62 mmHg (35-45); ABG PH 7.27 pH Units (7.32-7.45); ABG PO2 556 mmHg (85-104); ABG TCO2 30 mEq/L (20-26); Blood Gas Modality PRVC; Blood Gas PEEP 5 cm H2O; Blood Gas Respiration Rate 12; Blood Gas VT 500 cc; INR 1.4
[2018-01-24 12:49] LABS: Activated Partial Thrombo Time 27.5 Seconds (26.0-36.0)
[2018-01-24] MEDS: 0.9 % Sodium Chloride w KCl 20 MEQ/1,000 ML MLS IVC SCH (12:49)
[2018-01-24] MEDS: Nitroglycerin 25 MG/250 ML INFUS..BTL IVC SCH ×2 (12:49→21:48)
[2018-01-24] MEDS: Pantoprazole 40 MG VIAL IVP SCH (12:54)
[2018-01-24] MEDS: Dextrose 50 % in Water (Vial) 30 ML, Sodium Bicarbonate 20 MEQ, Lidocaine 1% 5 ML, Insu... TH SCH ×3 (12:55→12:57)
[2018-01-24] MEDS: Chlorhexidine Rinse 15 ML MOUTHWASH MM SCH ×3 (12:56→19:55)
[2018-01-24] MEDS: Heparin 15,000 UNIT in 0.9 % Sodium Chloride 500 ML IV SCH ×2 (12:56→12:57)
[2018-01-24 13:09] LABS: BUN/Creatinine Ratio 21 (6-26); Blood Urea Nitrogen 15 mg/dL (8-23); Carbon Dioxide 22 mEq/L (23-29); Chloride 113 mEq/L (98-107); Glucose 80 mg/dL (70-105); Magnesium 2.3 mg/dL (1.6-2.6); Osmolality,Calculated 302 (280-300); Sodium 146 mEq/L (136-145); eGFR For African Americans > 60 (> 60); eGFR For Non-African Americans > 60 (> 60)
[2018-01-24 14:02] LABS: Lymphocytes # 4.3 K/mcL (0.6-4.6); Monocytes # 2.9 K/mcL (0.0-1.3); Neutrophils # 28.9 K/mcL (1.6-8.9)
[2018-01-24 14:03] LABS: Platelet Estimate Slight Decrease (Normal); Toxic Granulation Present (Not Present)
[2018-01-24] MEDS: Insulin Human Regular 100 UNIT in 0.9 % Sodium Chloride 100 ML IVC SCH (14:41)
[2018-01-24] MEDS ORDERED: Albumin Human 25% 25 GM/100 ML IV.SOLN IV ONE (14:57)
[2018-01-24] MEDS ORDERED: Lidocaine 2% Syringe 100 MG/5 ML IV ONE (14:57)
[2018-01-24] MEDS ORDERED: *HR* Heparin 10,000 UNIT/10 ML VIAL IV ONE (14:57)
[2018-01-24] MEDS ORDERED: *HR* Phenylephrine 10 MG/ML VIAL IVC ONE (14:57)
[2018-01-24] MEDS ORDERED: Mannitol 25% vial 12.5 GM/50 ML VIAL IVP ONE (14:57)
[2018-01-24] MEDS ORDERED: Tranexamic Acid 1,000 MG/10 ML VIAL IVPB ONE (14:57)
[2018-01-24] MEDS ORDERED: *HR* Magnesium Sulfate 2 GM/50 ML PIGGYBACK IVPB ONE (14:57)
[2018-01-24] MEDS: *HR* FentaNYL (PF) 100 MCG/2 ML VIAL IVP PRN ×2 (15:19→20:05)
[2018-01-24] MEDS ORDERED: 0.9 % Sodium Chloride 1,000 ML ONE (15:39)
[2018-01-24] MEDS: *HR* OxyCODONE/APAP 5/325 TABLET PO PRN ×2 (15:41→21:50)
[2018-01-24] MEDS: ceFAZolin 2,000 MG in Water for inj. (sterile) 20 ML IVP SCH (15:43)
[2018-01-24] MEDS ORDERED: CeFAZolin Pre 2,000 MG/100 ML 2,000 MG/100 ML BAG IVPB SCH (16:00)
[2018-01-24 16:28] LABS: ABG Base Excess -1 mEq/L (-2 to 3); ABG HCO3 27 mEq/L (21-27); ABG Oxygen Saturation 98 % (95-98); ABG PCO2 55 mmHg (35-45); ABG PO2 125 mmHg (85-104); ABG TCO2 28 mEq/L (20-26); Blood Gas Modality PRVC; Blood Gas PEEP 5 cm H2O; Blood Gas Respiration Rate 14; Blood Gas VT 500 cc
[2018-01-24] MEDS: niCARdipine 40 MG/200 ML MLS IVC SCH ×2 (17:00→21:48)
[2018-01-24] MEDS: Norepinephrine 4 MG in D5% in Water 250 ML IVC SCH (17:45)
[2018-01-24] MEDS: Metoclopramide 10 MG/2 ML VIAL IVP SCH (17:46)
[2018-01-24 18:15] LABS: ABG Base Excess 0 mEq/L (-2 to 3); ABG HCO3 27 mEq/L (21-27); ABG Oxygen Saturation 93 % (95-98); ABG PCO2 51 mmHg (35-45); ABG PH 7.33 pH Units (7.32-7.45); ABG PO2 72 mmHg (85-104); ABG TCO2 28 mEq/L (20-26); Blood Gas Modality CPAP/PS; Blood Gas PEEP 5 cm H2O; Blood Gas Pressure Support 5 cm H2O
[2018-01-24] MEDS: Ondansetron 4 MG/2 ML VIAL IVP PRN (18:29)
[2018-01-24 20:21] LABS: ABG Base Excess 1 mEq/L (-2 to 3); ABG HCO3 28 mEq/L (21-27); ABG Oxygen Saturation 95 % (95-98); ABG PCO2 49 mmHg (35-45); ABG PH 7.36 pH Units (7.32-7.45); ABG PO2 78 mmHg (85-104); ABG TCO2 29 mEq/L (20-26)
[2018-01-25] MEDS: Metoclopramide 10 MG/2 ML VIAL IVP SCH ×5 (00:04→23:55)
[2018-01-25] MEDS: ceFAZolin 2,000 MG in 0.9 % Sodium Chloride 100 ML IVP SCH ×2 (00:32→07:56)
[2018-01-25] MEDS: ceFAZolin 2,000 MG in Water for inj. (sterile) 20 ML IVP SCH (00:32)
[2018-01-25 03:21] LABS: Basophils % 0.2 %; Eosinophils # 0.1 K/mcL (0.0-0.6); Eosinophils % 0.3 %; Hematocrit 32.5 % (37.5-50.1); Hemoglobin 10.6 g/dL (12.9-16.9); Immature Granulocytes % 1.9 % (0-4); Lymphocytes # 2.6 K/mcL (0.6-4.6); Lymphocytes % 12.4 %; Mean Corpuscular HGB Conc 32.6 g/dL (31.6-35.5); Mean Corpuscular Volume 92.1 fL (83.0-100.0); Mean Platelet Volume 9.5 fL (9.4-12.4); Monocytes # 2.1 K/mcL (0.0-1.3); Neutrophils # 15.8 K/mcL (1.6-8.9); Platelet Count 125 K/mcL (140-400); Red Blood Count 3.53 M/mcL (4.19-5.50); Red Cell Distribution Width 13.9 % (11.5-14.5); Segmented Neutrophils % 75.2 %
[2018-01-25 03:28] LABS: INR 1.1; Prothrombin Time 11.7 Seconds (9.4-12.1)
[2018-01-25 03:30] LABS: Activated Partial Thrombo Time 26.1 Seconds (26.0-36.0)
[2018-01-25] MEDS: *HR* OxyCODONE/APAP 5/325 TABLET PO PRN ×5 (03:43→20:49)
[2018-01-25 03:51] LABS: BUN/Creatinine Ratio 22 (6-26); Blood Urea Nitrogen 23 mg/dL (8-23); Calcium 8.3 mg/dL (8.6-10.3); Carbon Dioxide 26 mEq/L (23-29); Chloride 104 mEq/L (98-107); Glucose 106 mg/dL (70-105); Magnesium 2.5 mg/dL (1.6-2.6); Osmolality,Calculated 284 (280-300); Potassium 4.6 mEq/L (3.5-5.1); Sodium 135 mEq/L (136-145); eGFR For African Americans > 60 (> 60); eGFR For Non-African Americans > 60 (> 60)
[2018-01-25] MEDS: *HR* FentaNYL (PF) 100 MCG/2 ML VIAL IVP PRN ×3 (04:02→14:31)
[2018-01-25] MEDS: niCARdipine 40 MG/200 ML MLS IVC SCH ×4 (05:15→23:24)
[2018-01-25] MEDS: Ringers Solution, Lactated 1,000 ML IVC SCH (05:16)
[2018-01-25] MEDS ORDERED: Amiodarone Premix 150 MG/100 ML BAG IVPB ONE ×2 (07:49→07:53)
[2018-01-25] MEDS ORDERED: Amiodarone 300 MG in D5% in Water 100 ML IVPB ONE (07:49)
--- NOTE | 2018-01-25 08:06 | Cardiothoracic Progress Note ---
Date of Encounter: 01/25/18 Time of Encounter: 08:01 - Assessment and plan (1) CAD (coronary artery disease) Current Visit: Yes Status: Acute The patient is recovering well from his CABG 3. He remained hemodynamically stable overnight. He is currently extubated and breathing comfortably. His cardiac rhythm; however, deteriorated to atrial fibrillation with RVR this morning and he is being treated with amiodarone drip. The [place] catheter be removed. The arterial line and Augustin catheter will remain in place today and he will be monitored in the ICU. The assessment and plan as outlined above was discussed with the patient and/or family members who expressed understanding and agreement. All questions were answered. Qualifiers: Coronary Disease-Associated Artery/Lesion type: al[place]iiq artery [facility] vs. transplanted heart: alutiiq heart Associated angina: with unstable angina Qualified Code(s): I25.110 - Atherosclerotic heart disease of alutiiq coronary artery with unstable angina pectoris - Subjective Procedure(s) Performed: POD#1 S/P CABGx3 Interval history: The patient remained hemodynamically stable overnight. He is currently extubated and breathing comfortably. His cardiac rhythm deteriorated to atrial fibrillation with RVR this morning and he is currently on an amiodarone drip. Vital Signs, Last 4 Hours Pulse Resp BP Pulse Ox 01/25/18 07:50 16 98 01/25/18 06:50 87 16 125/58 98 01/25/18 06:00 86 16 120/51 98 01/25/18 05:00 87 16 122/49 98 Oxgyen Flow Rate Oxygen Flow Rate (LPM) 3 Clinical Data, last 8 Hours Output, Chest Tube Drainage 0 Amount [mediastinal 2] Output, Chest Tube Drainage 0 Amount [mediastinal 2] Output, Chest Tube Drainage 0 Amount [mediastinal 2] Output, Chest Tube Drainage 0 Amount [mediastinal 2] Output, Chest Tube Drainage 0 Amount [mediastinal 2] Output, Chest Tube Drainage 0 Amount [mediastinal 2] Output, Chest Tube Drainage 0 Amount [mediastinal 2] Output, Chest Tube Drainage 20 Amount [mediastinal 1] Output, Chest Tube Drainage 25 Amount [mediastinal 1] Output, Chest Tube Drainage 25 Amount [mediastinal 1] Output, Chest Tube Drainage 40 Amount [mediastinal 1] Output, Chest Tube Drainage 30 Amount [mediastinal 1] Output, Chest Tube Drainage 25 Amount [mediastinal 1] Output, Chest Tube Drainage 34 Amount [mediastinal 1] Weight 01/23/18 01/24/18 01/25/18 23:59 23:59 23:59 Weight 102.058 kg - Physical Examination General: Conversant, No Apparent Distress Neck: No JVD, Normal carotid pulses Cardiac: Normal S1 and S2, No Murmur, Other (Irregular rate and rhythm (atrial fibrillation)) Incision: No signs of infection, Dry/intact dressing Sternum: Stable Chest tubes: Minimal drainage, Other (No air leak) Pacing Wires: In place Lungs: Normal Breath Sounds, No Wheeze, Rales, Rhonchi Neuro: Alert and responsive, No focal deficits noted Vascular: Normal capillary refill Extremities: No Clubbing, No Cyanosis, No Edema - Labs 01/25/18 03:13 01/25/18 03:13 Lab Results, Last 24 hours 01/24/18 01/24/18 01/24/18 12:30 12:30 12:30 WBC 36.1 H* Hgb 10.6 L Hct 32.9 L Plt Count 131 L INR 1.4 APTT 27.5 Sodium 146 H Potassium 4.0 Chloride 113 H Carbon Dioxide 22 L BUN 15 Creatinine 0.71 Glucose 80 Calcium 7.0 L Magnesium 2.3 01/25/18 01/25/18 01/25/18 03:13 03:13 03:13 WBC 21.0 H Hgb 10.6 L Hct 32.5 L Plt Count 125 L INR 1.1 APTT 26.1 Sodium 135 L D Potassium 4.6 Chloride 104 Carbon Dioxide 26 BUN 23 Creatinine 1.04 Glucose 106 H Calcium 8.3 L Magnesium 2.5 - Imaging Chest Xray: image reviewed (Normal cardiac size. No pneumothorax. Minimal left lower lobe atelectasis.) - VTE Reasons for not Prescribing Prophylaxis: Medical contraindication Documentation of Mechanical Device: Graduated compression elastic hosiery Consult Discharge Plan - Plan Referrals: Margarito Abarca MD [Primary Care Provider] -
[2018-01-25] MEDS: Aspirin Enteric Coated 81 MG Tablet PO SCH (08:07)
[2018-01-25] MEDS: Pantoprazole 40 MG VIAL IVP SCH (08:08)
[2018-01-25] MEDS: Furosemide 20 MG/2 ML VIAL IVP SCH ×2 (08:08→20:49)
[2018-01-25] MEDS: Amiodarone Premix 360 MG/200 ML BAG IVC ONE ×2 (08:14→12:58)
[2018-01-25] MEDS: 0.9 % Sodium Chloride w KCl 20 MEQ/1,000 ML MLS IVC SCH (08:19)
[2018-01-25] MEDS: Nitroglycerin 25 MG/250 ML INFUS..BTL IVC SCH ×3 (08:21→20:49)
[2018-01-25] MEDS: Dextrose 50 % in Water (Vial) 30 ML, Sodium Bicarbonate 20 MEQ, Lidocaine 1% 5 ML, Insu... TH SCH (08:47)
[2018-01-25] MEDS: *HR* Heparin 5,000 UNIT/ML VIAL SQ SCH ×2 (08:51→17:43)
[2018-01-25] MEDS: Heparin 15,000 UNIT in 0.9 % Sodium Chloride 500 ML IV SCH (08:54)
[2018-01-25] MEDS: Chlorhexidine Rinse 15 ML MOUTHWASH MM SCH ×2 (08:55→20:48)
[2018-01-25] MEDS ORDERED: Vancomycin Oral Soln 250 MG/5 ML UDC PO SCH (09:05)
--- NOTE | 2018-01-25 09:14 | Anesthesia Evaluation Post Op ---
Date of Encounter: 01/25/18 Time of Encounter: 08:00 - Vital Signs Vital Signs: Selected Entries 01/25/18 08:00 Temperature 100.0 F H Pulse Rate 137 Respiratory Rate 16 Blood Pressure 120/61 O2 Sat by Pulse Oximetry 96 Oxygen Flow Rate (LPM) 3 Oxygen Delivery Method Nasal Cannula - Lungs Lungs: Clear Ascult./Percussion - Airway Airway: Non-obstructed - Cardiovascular Irregular Rate, New Rhythm (afib) - Mental Status Mental Status: Alert & Oriented, Answers Appropriately - Pain Pain Scale: 3 Pain Scale used: Numeric (1 - 10) - Nausea Vomiting Nausea Vomiting: Not Present - Hydration Hydration: Tolerates oral liquids, Augustin catheter Notes: 01/25/18 09:14 POD #1 CABG, has new onset a-fib. No anesthesia issues.
[2018-01-25] MEDS: Insulin Human Regular 100 UNIT in 0.9 % Sodium Chloride 100 ML IVC SCH (11:27)
[2018-01-25] MEDS: Norepinephrine 4 MG in D5% in Water 250 ML IVC SCH (11:27)
[2018-01-25] MEDS: Vancomycin Oral Soln 250 MG/5 ML UDC PO SCH ×3 (11:28→20:49)
[2018-01-25] MEDS ORDERED: Dextrose Gel 15 GM/37.5 ML TUBE PO PRN ×2 (13:10)
[2018-01-25] MEDS ORDERED: D5% in Water 1,000 ML IVC PRN (13:10)
[2018-01-25] MEDS ORDERED: *HR* Dextrose 50 % in Water (Syg) 50 ML SYRINGE IVP PRN (13:10)
[2018-01-25] MEDS: Amiodarone Premix 360 MG/200 ML BAG IVC SCH ×2 (14:33→18:53)
[2018-01-25] MEDS: Ondansetron 4 MG/2 ML VIAL IVP PRN (16:33)
[2018-01-25] MEDS: Insulin LISPRO 300 UNITS/3 ML VIAL SQ SCH ×2 (17:40→19:53)
[2018-01-25] MEDS ORDERED: *HR* FentaNYL (PF) 100 MCG/2 ML VIAL IVP PRN (23:36)
[2018-01-25] MEDS: Ketorolac 15 MG/ML VIAL IVP PRN (23:45)
[2018-01-25] MEDS: Acetaminophen IV 1,000 MG/100 ML INFUS..BTL IVPB SCH (23:56)
[2018-01-26] MEDS: Amiodarone Premix 360 MG/200 ML BAG IVC SCH ×2 (02:35→17:03)
[2018-01-26] MEDS: 0.9 % Sodium Chloride w KCl 20 MEQ/1,000 ML MLS IVC SCH (02:36)
[2018-01-26 03:36] LABS: Basophils % 0.1 %; Eosinophils % 0.2 %; Hematocrit 30.4 % (37.5-50.1); Hemoglobin 10.1 g/dL (12.9-16.9); Immature Granulocytes % 1.1 % (0-4); Lymphocytes # 1.6 K/mcL (0.6-4.6); Lymphocytes % 8.4 %; Mean Corpuscular HGB Conc 33.2 g/dL (31.6-35.5); Mean Corpuscular Hemoglobin 30.1 pg (28.0-33.3); Mean Corpuscular Volume 90.7 fL (83.0-100.0); Mean Platelet Volume 9.6 fL (9.4-12.4); Monocytes % 10.3 %; Neutrophils # 15.4 K/mcL (1.6-8.9); Platelet Count 106 K/mcL (140-400); Red Blood Count 3.35 M/mcL (4.19-5.50); Red Cell Distribution Width 13.6 % (11.5-14.5); Segmented Neutrophils % 79.9 %
[2018-01-26 03:56] LABS: BUN/Creatinine Ratio 22 (6-26); Blood Urea Nitrogen 21 mg/dL (8-23); Calcium 8.1 mg/dL (8.6-10.3); Carbon Dioxide 27 mEq/L (23-29); Chloride 101 mEq/L (98-107); Glucose 142 mg/dL (70-105); Osmolality,Calculated 279 (280-300); Potassium 4.4 mEq/L (3.5-5.1); Sodium 132 mEq/L (136-145); eGFR For African Americans > 60 (> 60); eGFR For Non-African Americans > 60 (> 60)
[2018-01-26] MEDS: *HR* OxyCODONE/APAP 5/325 TABLET PO PRN ×2 (05:02→17:08)
[2018-01-26] MEDS: Metoclopramide 10 MG/2 ML VIAL IVP SCH ×3 (05:02→17:03)
[2018-01-26] MEDS: *HR* Heparin 5,000 UNIT/ML VIAL SQ SCH ×2 (05:02→17:02)
[2018-01-26] MEDS: Insulin LISPRO 300 UNITS/3 ML VIAL SQ SCH ×4 (07:38→20:50)
[2018-01-26] MEDS: Chlorhexidine Rinse 15 ML MOUTHWASH MM SCH ×2 (08:21→20:49)
[2018-01-26] MEDS: Aspirin Enteric Coated 81 MG Tablet PO SCH (08:21)
[2018-01-26] MEDS: Pantoprazole 40 MG VIAL IVP SCH (08:21)
[2018-01-26] MEDS: Furosemide 20 MG/2 ML VIAL IVP SCH ×2 (08:21→20:49)
[2018-01-26] MEDS: Vancomycin Oral Soln 250 MG/5 ML UDC PO SCH ×4 (08:22→20:49)
[2018-01-26] MEDS: Ketorolac 15 MG/ML VIAL IVP PRN ×2 (08:36→17:11)
--- NOTE | 2018-01-26 08:47 | Cardiothoracic Progress Note ---
Date of Encounter: 01/26/18 Time of Encounter: 08:43 - Subjective Procedure(s) Performed: Patient seen and examined. He is now postoperative day #2 from a CABG 3. Notably, he had new onset of atrial fibrillation with RVR yesterday and was placed on an amiodarone drip. He converted to sinus rhythm overnight. He has had some significant elevation in his blood pressure is nitroglycerin was resumed. He also had some difficulty with pain control last night and I instituted OFIRMEV than Toradol which was effective for his pain control. He still has his arterial line, Augustin catheter, chest tubes and pacing wires in place. Notably has a small intermittent air leak in one of his chest tubes ( single chest tube). His pain control is under better control currently and he has a reasonable cough. We discussed the importance of pulmonary toilet. We will plan on the setting his arterial line today. His chest tubes remain in place given his persistent air leak. We will continue his amiodarone drip and stop his nitroglycerin. I have added hydralazine when necessary for systolic pressure greater than 150. Plan was discussed with the nurse at bedside. Vital Signs, Last 4 Hours Pulse Resp BP Pulse Ox 01/26/18 08:09 18 131/75 94 01/26/18 08:00 84 16 131/75 95 01/26/18 07:00 82 20 136/71 96 01/26/18 06:00 85 18 117/45 96 01/26/18 05:00 80 18 141/41 96 Oxgyen Flow Rate Oxygen Flow Rate (LPM) 0 Clinical Data, last 8 Hours Output, Chest Tube Drainage 0 Amount [mediastinal 2] Output, Chest Tube Drainage 0 Amount [mediastinal 2] Output, Chest Tube Drainage 25 Amount [mediastinal 1] Output, Chest Tube Drainage 10 Amount [mediastinal 1] Weight 01/24/18 01/25/18 01/26/18 23:59 23:59 23:59 Weight 102.058 kg 104.8 kg - Physical Examination General: Other (Lying in bed, comfortable, awake and alert, no acute distress) Incision: Other (Dressings clean, dry and intact) Sternum: Other (Sternum stable with cough no obvious click or instability noted) Chest tubes: Other (Chest tubes to suction, wide chest tubes had no air leak with serous drainage, single chest tube has notable air leak that intermittent with cough) Lungs: Other (Reasonable respiratory effort with reasonable cough) - Labs 01/26/18 03:20 01/26/18 03:20 Lab Results, Last 24 hours 01/26/18 01/26/18 03:20 03:20 WBC 19.3 H Hgb 10.1 L Hct 30.4 L Plt Count 106 L Sodium 132 L Potassium 4.4 Chloride 101 Carbon Dioxide 27 BUN 21 Creatinine 0.96 Glucose 142 H Calcium 8.1 L - VTE Reasons for not Prescribing Prophylaxis: Medical contraindication Documentation of Mechanical Device: Graduated compression elastic hosiery Consult Discharge Plan - Plan Referrals: Margarito Abarca MD [Primary Care Provider] -
[2018-01-26] MEDS: Ondansetron 4 MG/2 ML VIAL IVP PRN ×2 (09:33→17:03)
[2018-01-26] MEDS: Nitroglycerin 25 MG/250 ML INFUS..BTL IVC SCH ×3 (10:51→21:40)
[2018-01-26] MEDS: hydrALAZINE 25 MG TABLET PO PRN (10:53)
[2018-01-26] MEDS: niCARdipine 40 MG/200 ML MLS IVC SCH ×2 (11:35→20:38)
[2018-01-26] MEDS: Norepinephrine 4 MG in D5% in Water 250 ML IVC SCH (11:36)
[2018-01-27] MEDS: Acetaminophen IV 1,000 MG/100 ML INFUS..BTL IVPB SCH (00:03)
[2018-01-27] MEDS: 0.9 % Sodium Chloride w KCl 20 MEQ/1,000 ML MLS IVC SCH ×2 (00:04→21:47)
[2018-01-27] MEDS: Metoclopramide 10 MG/2 ML VIAL IVP SCH ×4 (00:06→18:47)
[2018-01-27] MEDS: *HR* OxyCODONE/APAP 5/325 TABLET PO PRN ×4 (01:47→20:12)
[2018-01-27] MEDS: Ketorolac 15 MG/ML VIAL IVP PRN ×2 (02:31→20:26)
[2018-01-27] MEDS: niCARdipine 40 MG/200 ML MLS IVC SCH ×2 (04:32→17:22)
[2018-01-27] MEDS: Amiodarone Premix 360 MG/200 ML BAG IVC SCH ×2 (05:18→17:52)
[2018-01-27] MEDS: *HR* Heparin 5,000 UNIT/ML VIAL SQ SCH ×2 (05:22→17:51)
[2018-01-27] MEDS: Nitroglycerin 25 MG/250 ML INFUS..BTL IVC SCH ×2 (06:19→17:22)
[2018-01-27] MEDS: Insulin LISPRO 300 UNITS/3 ML VIAL SQ SCH ×4 (07:40→20:33)
[2018-01-27] MEDS: Chlorhexidine Rinse 15 ML MOUTHWASH MM SCH ×2 (09:05→20:11)
[2018-01-27] MEDS: Pantoprazole 40 MG VIAL IVP SCH (09:05)
[2018-01-27] MEDS: Furosemide 20 MG/2 ML VIAL IVP SCH ×2 (09:05→20:13)
[2018-01-27] MEDS: Aspirin Enteric Coated 81 MG Tablet PO SCH (09:05)
[2018-01-27] MEDS: Vancomycin Oral Soln 250 MG/5 ML UDC PO SCH ×4 (09:06→20:14)
[2018-01-27] MEDS: Ondansetron 4 MG/2 ML VIAL IVP PRN (09:07)
--- NOTE | 2018-01-27 09:36 | Cardiothoracic Progress Note ---
Date of Encounter: 01/27/18 Time of Encounter: 09:32 - Subjective Procedure(s) Performed: Patient seen and examined. He is now postoperative day #3 from a CABG 3. Yesterday following my assessment the patient was up in a chair and return to bed when he developed new onset of crepitus and subcutaneous air involving his left chest and face. He was noted to have an air leak in his single left-sided chest tube yesterday morning and chest tubes were left in place. His chest x- ray obtained after development of his subcutaneous emphysema noted a small new pneumothorax. He has done well overnight but has had increased subcutaneous air to the point his left eye is now showed. His repeat chest x-ray demonstrates a stable apical left pneumothorax. His chest tube has no obvious air leak at this time. He did have new onset of atrial fibrillation with RVR postoperatively and was placed on an amiodarone drip. He converted to sinus rhythm and has been in sinus rhythm since yesterday morning but has had some brief episodes of A. fib according to nursing staff. His blood pressure was elevated yesterday and management by nitroglycerin drip which I discontinued and placed him on when necessary hydralazine. This along with increasing his metoprolol and adding his home blood pressure med (Cozaar) has resulted in reasonable blood pressure control. Discussed with nursing staff plan for BMP and mag levels today to correct any potassium or magnesium deficiency given his atrial fibrillation. We will continue amiodarone drip. Consider pulling 2 chest tubes later today. Emphasize importance of increased activity and pulmonary toilet. Vital Signs, Last 4 Hours Temp Pulse Resp BP Pulse Ox 01/27/18 08:04 16 147/98 94 01/27/18 07:56 98.6 F 01/27/18 07:00 79 15 147/98 94 01/27/18 06:00 77 13 128/80 92 Oxgyen Flow Rate Oxygen Flow Rate (LPM) 1 Clinical Data, last 8 Hours Output, Chest Tube Drainage 0 Amount [mediastinal 2] Output, Chest Tube Drainage 10 Amount [mediastinal 2] Output, Chest Tube Drainage 20 Amount [mediastinal 1] Output, Chest Tube Drainage 10 Amount [mediastinal 1] Output, Urine Amount 0 Output, Urine Amount 150 Output, Urine Amount 0 Output, Urine Amount 75 Weight 01/25/18 01/26/18 01/27/18 23:59 23:59 23:59 Weight 104.8 kg 105.1 kg - Physical Examination General: Other (Lying in bed, friendly and cooperative, no acute distress) HEENT: Other (Subcutaneous emphysema causing puffiness and closure of left eye able to see out of right eye without difficulty) Cardiac: Other (Sinus rhythm with reported brief episodes of A. fib) Incision: Other (Dressing intact clean and dry) Sternum: Other (Sternum stable without crepitus or sternal instability) Chest tubes: Other (3 chest tubes to suction no evidence of early, serous drainage) Pacing Wires: In place - Labs 01/26/18 03:20 01/26/18 03:20 - VTE Reasons for not Prescribing Prophylaxis: Medical contraindication Documentation of Mechanical Device: Graduated compression elastic hosiery Consult Discharge Plan - Plan Referrals: Margarito Abarca MD [Primary Care Provider] -
[2018-01-27 10:33] LABS: BUN/Creatinine Ratio 20 (6-26); Blood Urea Nitrogen 16 mg/dL (8-23); Calcium 8.4 mg/dL (8.6-10.3); Carbon Dioxide 30 mEq/L (23-29); Chloride 100 mEq/L (98-107); Glucose 147 mg/dL (70-105); Magnesium 2.1 mg/dL (1.6-2.6); Osmolality,Calculated 280 (280-300); Potassium 4.2 mEq/L (3.5-5.1); Sodium 133 mEq/L (136-145); eGFR For African Americans > 60 (> 60); eGFR For Non-African Americans > 60 (> 60)
[2018-01-27] MEDS: hydrALAZINE 25 MG TABLET PO PRN ×2 (12:50→20:26)
[2018-01-27] MEDS: Norepinephrine 4 MG in D5% in Water 250 ML IVC SCH (17:22)
[2018-01-28] MEDS: Acetaminophen IV 1,000 MG/100 ML INFUS..BTL IVPB SCH (00:09)
[2018-01-28] MEDS: *HR* OxyCODONE/APAP 5/325 TABLET PO PRN (01:46)
[2018-01-28] MEDS: hydrALAZINE 25 MG TABLET PO PRN (03:40)
[2018-01-28] MEDS: Ketorolac 15 MG/ML VIAL IVP PRN (03:41)
[2018-01-28] MEDS: *HR* Heparin 5,000 UNIT/ML VIAL SQ SCH ×2 (06:10→17:55)
[2018-01-28] MEDS: Amiodarone Premix 360 MG/200 ML BAG IVC SCH ×2 (06:50→18:11)
[2018-01-28] MEDS: Insulin LISPRO 300 UNITS/3 ML VIAL SQ SCH ×3 (08:31→20:49)
[2018-01-28] MEDS: Vancomycin Oral Soln 250 MG/5 ML UDC PO SCH ×4 (08:36→20:51)
[2018-01-28] MEDS: Aspirin Enteric Coated 81 MG Tablet PO SCH (08:36)
[2018-01-28] MEDS: Chlorhexidine Rinse 15 ML MOUTHWASH MM SCH ×2 (08:36→20:48)
[2018-01-28] MEDS: Pantoprazole 40 MG VIAL IVP SCH (08:36)
[2018-01-28] MEDS ORDERED: Ipratropium/Albuterol Neb 3 ML IH PRN (10:23)
[2018-01-28] MEDS ORDERED: Ipratropium/Albuterol Neb 3 ML IH SCH (10:30)
--- NOTE | 2018-01-28 11:40 | Cardiothoracic Progress Note ---
Date of Encounter: 01/28/18 Time of Encounter: 11:38 - Assessment and plan (1) Non-ST elevation [place] (NSTEMI) Current Visit: No Status: Acute The assessment and plan as outlined above was discussed with the patient and/or family members who expressed understanding and agreement. All questions were answered. The chest tubes were placed to waterseal. We will check a chest x-ray tomorrow morning and if the pneumothorax is stable or improved we will discontinue the chest tubes. We will maintain the amiodarone drip until tomorrow morning. We will transfer the patient to the floor. - Subjective Interval history: The patient has no complaints. He states that his subcutaneous emphysema and left eye swelling are improved. Vital Signs, Last 4 Hours Pulse Resp BP Pulse Ox 01/28/18 11:10 15 142/96 96 01/28/18 10:50 20 92 01/28/18 10:00 89 20 101/39 95 01/28/18 09:00 92 20 157/78 94 01/28/18 08:00 89 18 166/79 95 01/28/18 07:41 16 95 Oxgyen Flow Rate Oxygen Flow Rate (LPM) 2 Clinical Data, last 8 Hours Output, Chest Tube Drainage 3 Amount [mediastinal 2] Output, Chest Tube Drainage 0 Amount [mediastinal 2] Output, Chest Tube Drainage 30 Amount [mediastinal 1] Output, Chest Tube Drainage 0 Amount [mediastinal 1] Output, Urine Amount 100 Output, Urine Amount 150 Weight 01/26/18 01/27/18 01/28/18 23:59 23:59 23:59 Weight 104.8 kg 105.1 kg Lungs are clear to percussion and auscultation. Heart is in a normal sinus rhythm. All incisions are healing well without signs of infection and the sternum is stable. The last chest x-ray revealed a left small apical pneumothorax. - Labs 01/26/18 03:20 01/27/18 10:05 - VTE Reasons for not Prescribing Prophylaxis: Medical contraindication Documentation of Mechanical Device: Graduated compression elastic hosiery Consult Discharge Plan - Plan Referrals: Margarito Abarca MD [Primary Care Provider] -
[2018-01-28] MEDS ORDERED: hydrALAZINE 25 MG TABLET PO PRN (12:12)
[2018-01-28] MEDS ORDERED: Acetaminophen 325 MG TABLET PO PRN (12:12)
[2018-01-28] MEDS ORDERED: Ondansetron 4 MG/2 ML VIAL IVP PRN (12:12)
[2018-01-28] MEDS ORDERED: Naloxone 0.4 MG/ML INJ IVP PRN (12:12)
[2018-01-28] MEDS ORDERED: Dextrose Gel 15 GM/37.5 ML TUBE PO PRN ×2 (12:12)
[2018-01-28] MEDS ORDERED: *HR* Dextrose 50 % in Water (Syg) 50 ML SYRINGE IVP PRN (12:12)
[2018-01-28] MEDS ORDERED: Ketorolac 15 MG/ML VIAL IVP PRN (12:12)
[2018-01-28] MEDS ORDERED: *HR* FentaNYL (PF) 100 MCG/2 ML VIAL IVP PRN (12:12)
[2018-01-28] MEDS ORDERED: D5% in Water 1,000 ML IVC PRN (12:12)
[2018-01-28] MEDS: Ipratropium/Albuterol Neb 3 ML IH PRN (18:13)
[2018-01-28] MEDS: Ipratropium/Albuterol Neb 3 ML IH SCH (19:42)
[2018-01-28] MEDS: Lactobacillus 1 EACH CAP.SPRINK PO SCH (20:49)
[2018-01-29 00:13] LABS: Basophils % 0.2 %; Eosinophils # 0.2 K/mcL (0.0-0.6); Eosinophils % 2.4 %; Hematocrit 26.1 % (37.5-50.1); Hemoglobin 8.6 g/dL (12.9-16.9); Immature Granulocytes % 0.7 % (0-4); Lymphocytes # 1.5 K/mcL (0.6-4.6); Lymphocytes % 17.4 %; Mean Corpuscular Hemoglobin 29.7 pg (28.0-33.3); Mean Platelet Volume 9.8 fL (9.4-12.4); Monocytes # 0.9 K/mcL (0.0-1.3); Monocytes % 10.2 %; Platelet Count 159 K/mcL (140-400); Segmented Neutrophils % 69.1 %
[2018-01-29 00:16] LABS: Neutrophils # 5.9 K/mcL (1.6-8.9)
[2018-01-29 00:32] LABS: BUN/Creatinine Ratio 16 (6-26); Blood Urea Nitrogen 12 mg/dL (8-23); Calcium 8.5 mg/dL (8.6-10.3); Carbon Dioxide 26 mEq/L (23-29); Chloride 105 mEq/L (98-107); Glucose 94 mg/dL (70-105); Osmolality,Calculated 280 (280-300); Potassium 4.1 mEq/L (3.5-5.1); Sodium 135 mEq/L (136-145); eGFR For African Americans > 60 (> 60); eGFR For Non-African Americans > 60 (> 60)
[2018-01-29] MEDS: Ipratropium/Albuterol Neb 3 ML IH PRN ×2 (05:29→14:58)
[2018-01-29] MEDS: Amiodarone Premix 360 MG/200 ML BAG IVC SCH (06:01)
[2018-01-29] MEDS: *HR* Heparin 5,000 UNIT/ML VIAL SQ SCH ×2 (06:01→17:05)
[2018-01-29] MEDS: *HR* OxyCODONE/APAP 5/325 TABLET PO PRN (06:50)
[2018-01-29] MEDS: Insulin LISPRO 300 UNITS/3 ML VIAL SQ SCH ×4 (08:20→21:27)
[2018-01-29] MEDS: Lactobacillus 1 EACH CAP.SPRINK PO SCH ×2 (08:28→21:24)
[2018-01-29] MEDS: Aspirin Enteric Coated 81 MG Tablet PO SCH (08:28)
[2018-01-29] MEDS: Chlorhexidine Rinse 15 ML MOUTHWASH MM SCH ×2 (08:28→21:24)
[2018-01-29] MEDS: Vancomycin Oral Soln 250 MG/5 ML UDC PO SCH (08:29)
[2018-01-29] MEDS: Pantoprazole 40 MG VIAL IVP SCH (08:29)
[2018-01-29] MEDS ORDERED: Aspirin Enteric Coated 81 MG Tablet PO SCH (09:00)
--- NOTE | 2018-01-29 09:23 | Cardiothoracic Progress Note ---
Date of Encounter: 01/29/18 Time of Encounter: 09:21 - Assessment and plan (1) Non-ST elevation [place] (NSTEMI) Current Visit: No Status: Acute I removed the 2 mediastinal chest tubes and left the left pleural chest tube. We will check a chest x-ray tomorrow morning and if this looks good, we will discontinue the final tube. I also discontinued the pacing wires. We will switch the patient from IV amiodarone to by mouth amiodarone. - Subjective Interval history: The patient has no complaints and states that his subcutaneous emphysema he is markedly improved. Vital Signs, Last 4 Hours Temp Pulse Resp BP Pulse Ox 01/29/18 09:00 93 01/29/18 08:00 84 20 156/86 96 01/29/18 07:35 97.0 F L 01/29/18 06:00 88 24 139/86 96 01/29/18 05:30 19 95 Oxgyen Flow Rate Oxygen Flow Rate (LPM) 2 Clinical Data, last 8 Hours Output, Chest Tube Drainage 0 Amount [mediastinal 2] Output, Chest Tube Drainage 0 Amount [mediastinal 1] Output, Urine Amount 100 Output, Urine Amount 150 Output, Urine Amount 100 Output, Urine Amount 200 Weight 01/27/18 01/28/18 01/29/18 23:59 23:59 23:59 Weight 105.1 kg 105.5 kg Lungs are clear to percussion and auscultation. Heart is in a normal sinus rhythm. All incisions are healing well without signs of infection and the sternum is stable. Chest x-ray done this morning on water seal reveals no pneumothorax. - Labs 01/28/18 23:54 01/28/18 23:54 Lab Results, Last 24 hours 01/28/18 01/28/18 23:54 23:54 WBC 8.5 D Hgb 8.6 L D Hct 26.1 L Plt Count 159 Sodium 135 L Potassium 4.1 Chloride 105 Carbon Dioxide 26 BUN 12 Creatinine 0.73 Glucose 94 Calcium 8.5 L - VTE Reasons for not Prescribing Prophylaxis: Medical contraindication Documentation of Mechanical Device: Graduated compression elastic hosiery Consult Discharge Plan - Plan Referrals: Margarito Abarca MD [Primary Care Provider] -
[2018-01-29] MEDS: *HR* Amiodarone 200 MG TABLET PO SCH ×2 (10:00→21:23)
[2018-01-29] MEDS: Ipratropium/Albuterol Neb 3 ML IH SCH ×2 (11:26→19:37)
[2018-01-30 03:42] LABS: Basophils % 0.3 %; Eosinophils # 0.3 K/mcL (0.0-0.6); Eosinophils % 3.5 %; Hematocrit 26.9 % (37.5-50.1); Hemoglobin 9.1 g/dL (12.9-16.9); Immature Granulocytes % 1.7 % (0-4); Lymphocytes # 1.8 K/mcL (0.6-4.6); Lymphocytes % 23.1 %; Mean Corpuscular HGB Conc 33.8 g/dL (31.6-35.5); Mean Corpuscular Hemoglobin 30.3 pg (28.0-33.3); Mean Corpuscular Volume 89.7 fL (83.0-100.0); Mean Platelet Volume 10.3 fL (9.4-12.4); Monocytes % 12.5 %; Neutrophils # 4.5 K/mcL (1.6-8.9); Nucleated Red Blood Cells 0.4 /100 WBC (0); Platelet Count 180 K/mcL (140-400); Red Cell Distribution Width 14.2 % (11.5-14.5); Segmented Neutrophils % 58.9 %
[2018-01-30] MEDS: Ipratropium/Albuterol Neb 3 ML IH PRN ×2 (03:46→14:21)
[2018-01-30 03:59] LABS: BUN/Creatinine Ratio 13 (6-26); Blood Urea Nitrogen 12 mg/dL (8-23); Calcium 8.7 mg/dL (8.6-10.3); Carbon Dioxide 24 mEq/L (23-29); Chloride 106 mEq/L (98-107); Glucose 104 mg/dL (70-105); Osmolality,Calculated 284 (280-300); Potassium 4.6 mEq/L (3.5-5.1); Sodium 137 mEq/L (136-145); eGFR For African Americans > 60 (> 60); eGFR For Non-African Americans > 60 (> 60)
[2018-01-30] MEDS: *HR* Heparin 5,000 UNIT/ML VIAL SQ SCH ×2 (05:55→16:57)
--- NOTE | 2018-01-30 07:27 | Cardiothoracic Progress Note ---
Date of Encounter: 01/30/18 Time of Encounter: 07:25 - Assessment and plan (1) Non-ST elevation [place] (NSTEMI) Current Visit: No Status: Acute Hopefully, the patient can be discharged in a day or two. I will remove his last chest tube later today if his chest x-ray looks good. - Subjective Interval history: The patient has no complaints and is anxious to go home. Vital Signs, Last 4 Hours Temp Pulse Resp BP Pulse Ox 01/30/18 06:52 98.3 F 84 18 144/85 95 01/30/18 04:19 97.7 F 79 20 121/78 94 01/30/18 03:46 16 95 Oxgyen Flow Rate Oxygen Flow Rate (LPM) 2 Clinical Data, last 8 Hours Output, Chest Tube Drainage 10 Amount [mediastinal 1] Output, Urine Amount 500 Output, Urine Amount 300 Weight 01/28/18 01/29/18 01/30/18 23:59 23:59 23:59 Weight 103.1 kg 102.5 kg Lungs are clear to percussion and auscultation. Heart is in a normal sinus rhythm. All incisions are healing well without signs of infection and his sternum is stable. His subcutaneous emphysema is almost gone. - Labs 01/30/18 03:29 01/30/18 03:29 Lab Results, Last 24 hours 01/30/18 01/30/18 03:29 03:29 WBC 7.7 Hgb 9.1 L Hct 26.9 L Plt Count 180 Sodium 137 Potassium 4.6 Chloride 106 Carbon Dioxide 24 BUN 12 Creatinine 0.95 Glucose 104 Calcium 8.7 - VTE Reasons for not Prescribing Prophylaxis: Medical contraindication Documentation of Mechanical Device: Graduated compression elastic hosiery Consult Discharge Plan - Plan Referrals: Margarito Abarca MD [Primary Care Provider] - 02/12/18 2:45 pm (Please take your ID, Insurance cards and your discharge papers) Danya Hair MD [Partnered Physician] - 02/05/18 1:40 pm Shawnee Crockett [Partnered Physician] - 03/05/18 11:30 am ()
[2018-01-30] MEDS: Ipratropium/Albuterol Neb 3 ML IH SCH ×2 (07:57→19:28)
[2018-01-30] MEDS: Insulin LISPRO 300 UNITS/3 ML VIAL SQ SCH ×4 (09:10→20:54)
[2018-01-30] MEDS: Chlorhexidine Rinse 15 ML MOUTHWASH MM SCH ×2 (09:15→20:53)
[2018-01-30] MEDS: Aspirin Enteric Coated 81 MG Tablet PO SCH (09:15)
[2018-01-30] MEDS: Lactobacillus 1 EACH CAP.SPRINK PO SCH ×2 (09:15→20:54)
[2018-01-30] MEDS: Pantoprazole 40 MG VIAL IVP SCH (09:15)
[2018-01-30] MEDS: *HR* Amiodarone 200 MG TABLET PO SCH ×2 (09:15→20:53)
[2018-01-30] MEDS: *HR* OxyCODONE/APAP 5/325 TABLET PO PRN (13:58)
[2018-01-31] MEDS: Ipratropium/Albuterol Neb 3 ML IH PRN ×2 (01:20→11:00)
[2018-01-31] MEDS: *HR* Heparin 5,000 UNIT/ML VIAL SQ SCH (05:24)
[2018-01-31] MEDS: Ipratropium/Albuterol Neb 3 ML IH SCH (07:34)
[2018-01-31 07:39] VITALS: BP 146/83
[2018-01-31] MEDS: *HR* Amiodarone 200 MG TABLET PO SCH (08:03)
[2018-01-31] MEDS: Chlorhexidine Rinse 15 ML MOUTHWASH MM SCH (08:03)
[2018-01-31] MEDS: Pantoprazole 40 MG VIAL IVP SCH (08:03)
[2018-01-31] MEDS: Aspirin Enteric Coated 81 MG Tablet PO SCH (08:04)
[2018-01-31] MEDS: Lactobacillus 1 EACH CAP.SPRINK PO SCH (08:04)
[2018-01-31] MEDS: Insulin LISPRO 300 UNITS/3 ML VIAL SQ SCH (08:09)
--- NOTE | 2018-01-31 09:03 | Discharge Summary ---
Orders not resulted at time of discharge: Pending orders 01/23/18 08:16 Red Blood Cells [BBK] Routine Date of Encounter: 01/31/18 Time of Encounter: 08:53 - Discharge Diagnosis (1) Non-ST elevation [place] (NSTEMI) Priority: Primary Status: Acute - Hospital Course Hospital course: Mr. Barnard is a 78 year old male The patient is a 77-year-old gentleman with a history of COPD. He has had C. difficile colitis and was admitted with diarrhea. He had a positive troponin. Cardiac catheterization revealed severe coronary artery disease and he was referred for surgery. He did receive an 8 day course of oral vancomycin. On , my partner Dr. Hair took the patient to the operating room for coronary artery bypass grafting 3, utilizing the left internal mammary artery. Postoperatively the patient had some atrial fibrillation and was converted with amiodarone. He also developed crepitus over his left chest wall and face with a small left pneumothorax. His chest tubes were left in place. On January 28, his chest tubes were placed to waterseal. On January 29, his mediastinal chest tubes were removed. Pacing wires were also removed. On January 30, his left pleural tube was removed. Chest x-ray done on January 31 revealed only a possible tiny pneumothorax. The patient otherwise did well and was discharged on January 31. At that time he was afebrile. Lungs were clear to percussion and auscultation. Heart was in a normal sinus rhythm. All incisions were healing well without signs of infection and his sternum was stable. Discharge medications are on the med rec and include Percocet for pain. I did check the [place] automated Rx reporting system. Appropriate precautions were given. He was given a one-week supply and was postoperative. He was to return to his previous and regular diet. He was to walk as much as possible, but to avoid heavy lifting for a total of 3 months after surgery. He was to avoid driving for 1 month. He was to follow up and see Dr. Hair in the office in 4 weeks as directed. He was to follow up with his primary care doctor and veterinary epidemiologist as directed. He was to call sooner for any difficulties. - Time Spent with Patient Total time spent providing and/or coordinating discharge services: - Discharge Medications Prescriptions: OxyCODONE/APAP 5/325 [Percocet 5/325 MG] 1 each PO Q6HR PRN 7 Days #20 tablet PRN Reason: Severe Pain Amiodarone [Cordarone] 200 mg PO DAILY #30 tablet Home Medications: Aspirin [Adult Low Dose Aspirin EC] 81 mg PO DAILY 10/15/15 [History] Vitamin D3/Folic Acid [Ortho D 3,775 Unit-1 mg Cap] 1 cap PO DAILY 10/15/15 [ History] Albuterol Sulfate [Proventil Hfa] 1 puff IH BID PRN 01/11/18 [History] Ipratropium/Albuterol Neb [Duoneb] 3 ml IH BID 01/11/18 [History] Losartan Potassium [Cozaar] 50 mg PO DAILY 01/11/18 [History] Metoprolol Succinate [Toprol Xl] 50 mg PO BID 01/11/18 [History] Simvastatin [Zocor] 40 mg PO HS 01/11/18 [History] Lactobacillus [Culturelle] 1 each PO BID #14 cap.sprink 01/16/18 [Rx] predniSONE [PredniSONE] 10 mg PO DAILY #30 tablet 01/16/18 [Rx] Albuterol Neb [Proventil Neb] 2.5 mg PO BID PRN 01/24/18 [History] Vancomycin Oral Soln [Vancocin] 125 mg PO QID 01/24/18 [History] Amiodarone [Cordarone] 200 mg PO DAILY #30 tablet 01/31/18 [Rx] OxyCODONE/APAP 5/325 [Percocet 5/325 MG] 1 each PO Q6HR PRN 7 Days #20 tablet [Rx] Allergies/Adverse Reactions: 3 Allergy/AdvReac Type Severity Reaction Status Date / Time No Known Allergies Allergy Verified 01/24/18 08:35 Date of admission: 01/24/18 11:18 Primary care physician: Margarito Abarca MD Consults: 01/24/18 12:21 Consult to Cardiac Rehabilitation-Phase1 [CONS] Routine Comment: Reason for Consult: Post open heart Call Completed: Yes 01/28/18 12:12 Consult for Pharmacy Education [CONS] Routine Reason for Consult: Post-Op Heart Call Completed: Yes Consult to Occupational Therapy [CONS] Routine Comment: Evaluate, develop and implement POC Reason for Consult: Post-Op Heart Does patient have active BEDREST order?: No Is patient medically & hemodynamically stable?: Yes Consult to Physical Therapy [CONS] Routine Comment: Evaluate, develop and implement POC Reason for Consult: Post open heart Does patient have active BEDREST order?: No Is patient medically & hemodynamically stable?: Yes 01/28/18 12:16 Consult to Invasive Line Access Team [CONS] Routine Reason for Consult: Limtied access Line Type: EPIV 01/29/18 12:15 Consult to Jacket Preparer [CONS] Routine Reason for SW Consult: Discharge planning. PT/OT recommend HH at discharge. Procedure(s) Performed: 01/24/2018. Coronary artery bypass grafting 3, utilizing the left internal mammary artery. Discharging clinician: Bj Dumont Anticipated date of discharge: 01/31/18 Physical Examination Vital Signs, Last 4 Hours Temp Pulse Resp BP Pulse Ox 01/31/18 07:34 98.7 F 80 18 146/83 98 - Patient Status Disposition: Home, Self-Care Condition: Fair Functional capacity at discharge: independent ambulation Overall status at discharge: patient is progressing back to baseline - Discharge Instructions Follow Up With: Margarito Abarca MD [Primary Care Provider] - 02/12/18 2:45 pm (Please take your ID, Insurance cards and your discharge papers) Danya Hair MD [Partnered Physician] - 02/05/18 1:40 pm Shawnee Crockett [Partnered Physician] - 03/05/18 11:30 am () [facility] Aspirin Cont/Prescribed at DC: Yes Beta Jazmin Cont/Prescribed at DC: Yes Statin Cont/Prescribed at DC: Yes SOFI/ARB Cont/Prescribed at DC: Yes - VTE Reasons for not Prescribing Prophylaxis: Medical contraindication Documentation of Mechanical Device: Graduated compression elastic hosiery
--- NOTE | 2018-01-31 09:34 | Physician Discharge Referral ---
Home Health/Hosp Referral Info Transfer to: Home Health Provider in Charge Post Discharge: PCP - Diagnosis (1) Non-ST elevation [place] (NSTEMI) Priority: Primary Status: Acute - Respiratory Orders Smoking Cessation: Smoking cessation has been advised. For more information, call the [place] Tobacco Quit Line at 0-935-VWEO-NOW. - Diet/Nutrition Diet/Nutrition Orders: Regular - Activity Activity Orders: Up ad lashaun, Ambulate, Chair - Services Needed Following services are medically necessary services: Home Health Aide, Physical Therapy - Transfer Medications Prescriptions: OxyCODONE/APAP 5/325 [Percocet 5/325 MG] 1 each PO Q6HR PRN 7 Days #20 tablet PRN Reason: Severe Pain Amiodarone [Cordarone] 200 mg PO DAILY #30 tablet Home Medications: Aspirin [Adult Low Dose Aspirin EC] 81 mg PO DAILY 10/15/15 [History] Vitamin D3/Folic Acid [Ortho D 3,775 Unit-1 mg Cap] 1 cap PO DAILY 10/15/15 [ History] Albuterol Sulfate [Proventil Hfa] 1 puff IH BID PRN 01/11/18 [History] Ipratropium/Albuterol Neb [Duoneb] 3 ml IH BID 01/11/18 [History] Losartan Potassium [Cozaar] 50 mg PO DAILY 01/11/18 [History] Metoprolol Succinate [Toprol Xl] 50 mg PO BID 01/11/18 [History] Simvastatin [Zocor] 40 mg PO HS 01/11/18 [History] Lactobacillus [Culturelle] 1 each PO BID #14 cap.sprink 01/16/18 [Rx] predniSONE [PredniSONE] 10 mg PO DAILY #30 tablet 01/16/18 [Rx] Albuterol Neb [Proventil Neb] 2.5 mg PO BID PRN 01/24/18 [History] Vancomycin Oral Soln [Vancocin] 125 mg PO QID 01/24/18 [History] Amiodarone [Cordarone] 200 mg PO DAILY #30 tablet 01/31/18 [Rx] OxyCODONE/APAP 5/325 [Percocet 5/325 MG] 1 each PO Q6HR PRN 7 Days #20 tablet [Rx] Allergies/Adverse Reactions: 3 Allergy/AdvReac Type Severity Reaction Status Date / Time No Known Allergies Allergy Verified 01/24/18 08:35 Certification: Further, I certify that my clinical findings support that this patient is homebound (i.e. absences from home require considerable and taxing effort and are for medical reasons or taoism services or infrequently or short duration when for other reasons) because: Homebound Reason: Post-surgery restriction and or conditions limit ability to leave home Attestation: My signature below is to certify that this patient is under my care and that I, or nurse practitioner, or a physician's assistant project manager working with me, has a face-to -face encounter with this patient.
[2018-01-31] MEDS: *HR* OxyCODONE/APAP 5/325 TABLET PO PRN (11:14)
--- NOTE | 2018-02-01 07:58 | Electrocardiograph Report ---
[place] [id number] Test Date: 2018-01-24 Pat Name: Tian Barnard Department: 109 Room: 2N11 Gender: M Medical Billing Clerk: JESÚS : 1940 Requested By: Lucrecia Hair Order Number: [id number] Reading MD: Partha Duckworth Measurements Intervals [place] Rate: 82 P: 71 SD: 209 QRS: -55 QRSD: 113 T: 45 QT: 387 QTc: 426 Interpretive Statements SINUS RHYTHM MARKED LEFT AXIS DEVIATION INTRAVENTRICULAR CONDUCTION DELAY Electronically Signed On 02-01-2018 7:57:02 EDT by Partha Duckworth
== END 2018-01-31 12:05 | disposition home or self-care (01) | DRG 236 ==
LOC: SAMDAY 06:34 → ICNU 11:18 → 2NNU 01-29 10:47
PROVIDERS: ADMIT Thoracic Surgery (Cardiothoracic Vascular Surgery); ATTEND Thoracic Surgery (Cardiothoracic Vascular Surgery)

== ENCOUNTER 2018-03-07 22:31 | Observation (INO) ==
[2018-03-07] MEDS ORDERED: Aspirin 81 MG TAB.CHEW PO STA (23:33)
[2018-03-07] MEDS ORDERED: methylPREDNISolone 125 MG/2 ML VIAL IVP ONE (23:36)
[2018-03-07 23:38] LABS: Basophils % 0.4 %; Eosinophils # 0.2 K/mcL (0.0-0.6); Hematocrit 34.2 % (37.5-50.1); Hemoglobin 11.4 g/dL (12.9-16.9); Immature Granulocytes % 0.9 % (0-4); Lymphocytes # 1.7 K/mcL (0.6-4.6); Lymphocytes % 18.3 %; Mean Corpuscular HGB Conc 33.3 g/dL (31.6-35.5); Mean Corpuscular Hemoglobin 29.1 pg (28.0-33.3); Mean Corpuscular Volume 87.2 fL (83.0-100.0); Mean Platelet Volume 10.1 fL (9.4-12.4); Monocytes # 0.8 K/mcL (0.0-1.3); Monocytes % 8.6 %; Neutrophils # 6.5 K/mcL (1.6-8.9); Platelet Count 278 K/mcL (140-400); Red Blood Count 3.92 M/mcL (4.19-5.50); Red Cell Distribution Width 13.5 % (11.5-14.5); Segmented Neutrophils % 69.8 %
[2018-03-07 23:44] LABS: INR 1.2
[2018-03-07 23:46] LABS: Activated Partial Thrombo Time 33.8 Seconds (26.0-36.0)
--- NOTE | 2018-03-07 23:54 | Emergency Department Note ---
Disposition Clinical Impression: Abdominal pain Qualifiers: Abdominal location: right upper quadrant Qualified Code(s): R10.11 - Right upper quadrant pain Disposition: Admitted As Inpatient Condition: Fair Time of Disposition: 00:45 Abdominal Pain HPI - General Chief Complaint: ED Abdominal Pain Stated Complaint: "Upper Abd Pain/Open Heart 6wks Ago" Time Seen by Provider: 03/07/18 22:50 Source: patient Mode of arrival: ambulatory Limitations: no limitations Nursing Notes Reviewed: Yes Vital Signs Reviewed: Yes - History of Present Illness HPI Narrative: Mr. Barnard is a 78 year-old male presenting to ED for sudden onset RUQ and LUQ abdominal pain which began around 5-6pm this evening after eating at [employer]. Recent history significant for 3V CABG by Dr. Hair 6 weeks ago. Pain began while sitting in his easy chair, denies exertion prior to onset of pain. Pain is described as sore, constant, dull and doesn't radiate. Abdominal pain worse on inhalation, doesn't endorse relieving factors. Pt took 600mg ibuprofen a couple hours after onset of pain, however it provided no relief. Reports nausea and breaking out in cold, clammy sweat with onset of pain. Denies fevers , chills, vomiting, acid reflux type pain, shortness of breath, difficulty breathing. Pain Scale: 10 - Related Data Home Medications Medication Instructions Recorded Confirmed Aspirin [Adult Low Dose Aspirin EC] 81 mg PO DAILY 10/15/15 03/08/18 Albuterol Sulfate [Proventil Hfa] 1 - 2 puff IH Q6H PRN 01/11/18 03/08/18 Ipratropium/Albuterol Neb [Duoneb] 3 ml IH Q8H PRN 01/11/18 03/08/18 Losartan Potassium [Cozaar] 50 mg PO DAILY 01/11/18 03/08/18 Metoprolol Succinate [Toprol Xl] 50 mg PO BID 01/11/18 03/08/18 Amiodarone [Cordarone] 200 mg PO DAILY 03/08/18 03/08/18 Allergies Allergy/AdvReac Type Severity Reaction Status Date / Time No Known Allergies Allergy Verified 01/24/18 08:35 All systems ED: reviewed and negative except as stated. Review of Systems: As Per HPI Constitutional: Reports: as per HPI. Denies: fever, chills Cardiovascular: Reports: as per HPI. Denies: chest pain, palpitations, dyspnea on exertion, edema Respiratory: Reports: as per HPI, cough, sputum production (yellow-green). Denies: dyspnea, wheezes Gastrointestinal: Reports: as per HPI, abdominal pain, nausea. Denies: vomiting Abdominal Pain PMH - Past Medical History Medical history: Reports: COPD, coronary artery disease, hyperlipidemia, hypertension, myocardial infarction Male Surgical History: Reports: orthopedic, other, appendectomy, Tonsillectomy, Adenoidectomy Psychiatric history: Reports: no psych history - Social History Smoking status: Never smoker Alcohol use: Reports: occasionally Drug use: Reports: none Physical Exam - General Limitations: no limitations General appearance: alert - Head Head exam: normocephalic, normal inspection - Eye Eye exam: Present: normal appearance - ENT ENT exam: mucous membranes moist - Neck Neck exam: Present: normal inspection, other (supple) - Chest Chest inspection: Present: normal inspection (well-healed scar from midline incision). Absent: symmetric chest wall rise, tenderness, rash - Respiratory Respiratory exam: Present: normal lung sounds bilaterally (decreased sounds bilateral bases). Absent: respiratory distress, wheezes - Cardiovascular Cardiovascular exam: Present: regular rate, normal rhythm, normal heart sounds, +S1, +S2 - Abdominal Exam Abdominal exam: Present: soft, tenderness, distention, guarding (voluntary), scar (midline, upper abdomen--well healed scars from drainage tubes s/p open heart). Absent: rebound, rigidity Abdominal tenderness: Present: RUQ, LUQ, epigastrium, mild - Extremities Exam Extremities exam: Present: normal inspection (evidence of previous surgical repair L ankle). Absent: tenderness, pedal edema, calf tenderness - Expanded Lower Extremity Exam Ankle exam: Present: normal inspection. Absent: tenderness, swelling - Back Exam Back exam: Present: normal inspection - Neurological Exam Neurological exam: Present: alert, oriented X3. Absent: motor sensory deficit - Psychiatric Psychiatric exam: Present: normal affect, normal mood - Skin Skin exam: Present: warm, dry, intact, normal color. Absent: diaphoresis Course Vital Signs Temperature 97.5 F L 03/07/18 22:43 Pulse Rate 76 03/07/18 22:43 Respiratory Rate 20 03/07/18 22:43 Blood Pressure 163/96 03/07/18 22:43 O2 Sat by Pulse Oximetry 96 05/24/18 22:43 Temperature 98.3 F 03/08/18 15:32 Pulse Rate 75 03/08/18 15:32 Respiratory Rate 20 03/08/18 15:32 Blood Pressure 136/82 03/08/18 15:32 O2 Sat by Pulse Oximetry 94 03/08/18 15:32 Oxygen Delivery Oxygen Delivery Room Air Abdominal Pain - MDM Narrative Medical decision making narrative: Pt's recent history important for 3 vessel CABG 6 weeks ago. On presentation vital signs were stable, pt wasn't tachycardic, pt was afebrile, and saturating well on room air. Pt's vital signs remained stable while inemergency department. Initial troponin negative and no indications of acute ischemia on EKG. No acute cardiopulmonary disease on CXR. No acute surgical findings identified in CT abdomen/pelvis and pt's epigastric pain and nausea improved after GI cocktail and zofran. Most likely pt's epigastric pain related to acid reflux, but d/t his cardiac history he needs further evaluation and care to rule out ACS. Admitting hospitalist Dr. Flowers accepted pt for admission; pt and pt's were in agreement with this plan. This pt was signed out to the overnight ED physicians. - Medical Records Medical records reviewed: Yes I reviewed the patient's medical records. - Lab Data Lab results reviewed: Yes I reviewed the patient's lab results. Result diagrams: 03/08/18 05:16 03/08/18 05:16 Lab Results 03/07/18 03/07/18 03/07/18 Range/Units 22:56 22:56 23:27 WBC 9.3 (4.3-11.1) K/mcL RBC 3.92 L (4.19-5.50) M/mcL Hgb 11.4 L (12.9-16.9) g/dL Hct 34.2 L (37.5-50.1) % MCV 87.2 (83.0-100.0) fL MCH 29.1 (28.0-33.3) pg MCHC 33.3 (31.6-35.5) g/dL RDW 13.5 (11.5-14.5) % Plt Count 278 (140-400) K/mcL MPV 10.1 (9.4-12.4) fL Immature Gran % 0.9 (0-4) % Seg Neutrophils % 69.8 % Lymphocytes % 18.3 % Monocytes % 8.6 % Eosinophils % 2.0 % Basophils % 0.4 % Neutrophils # 6.5 (1.6-8.9) K/mcL Lymphocytes # 1.7 (0.6-4.6) K/mcL Monocytes # 0.8 (0.0-1.3) K/mcL Eosinophils # 0.2 (0.0-0.6) K/mcL Basophils # 0.0 (0.0-0.2) K/mcL PT 13.0 H (9.4-12.1) Seconds INR 1.2 APTT 33.8 (26.0-36.0) Seconds Sodium 138 (136-145) mEq/L Potassium 4.0 (3.5-5.1) mEq/L Chloride 103 (98-107) mEq/L Carbon Dioxide 25 (23-29) mEq/L BUN 13 (8-23) mg/dL Creatinine 1.03 (0.70-1.30) mg/dL Est GFR ( Amer) > 60 (> 60) Est GFR (Non-Af Amer) > 60 (> 60) BUN/Creatinine Ratio 13 (6-26) Glucose 130 H (70-105) mg/dL Calculated Osmolality 288 (280-300) Calcium 9.4 (8.6-10.3) mg/dL Total Bilirubin 0.8 (0.3-1.0) mg/dL Direct Bilirubin 0.5 H (0.0-0.2) mg/dL Indirect Bilirubin 0.3 (0.0-1.2) mg/dL AST 139 H (13-39) Units/L ALT 61 H (7-52) Units/L Alkaline Phosphatase 173 H (34-104) Units/L Troponin I < 0.03 (< 0.04) ng/mL Serum Total Protein 7.0 (6.4-8.9) g/dL Albumin 3.7 (3.5-5.7) g/dL Globulin 3.3 (2.4-3.5) g/dL Albumin/Globulin Ratio 1.1 (1.1-2.2) Lipase (11-82) Units/L 05/24/18 Range/Units 23:29 WBC (4.3-11.1) K/mcL RBC (4.19-5.50) M/mcL Hgb (12.9-16.9) g/dL Hct (37.5-50.1) % MCV (83.0-100.0) fL MCH (28.0-33.3) pg MCHC (31.6-35.5) g/dL RDW (11.5-14.5) % Plt Count (140-400) K/mcL MPV (9.4-12.4) fL Immature Gran % (0-4) % Seg Neutrophils % % Lymphocytes % % Monocytes % % Eosinophils % % Basophils % % Neutrophils # (1.6-8.9) K/mcL Lymphocytes # (0.6-4.6) K/mcL Monocytes # (0.0-1.3) K/mcL Eosinophils # (0.0-0.6) K/mcL Basophils # (0.0-0.2) K/mcL PT (9.4-12.1) Seconds INR APTT (26.0-36.0) Seconds Sodium (136-145) mEq/L Potassium (3.5-5.1) mEq/L Chloride (98-107) mEq/L Carbon Dioxide (23-29) mEq/L BUN (8-23) mg/dL Creatinine (0.70-1.30) mg/dL Est GFR ( Amer) (> 60) Est GFR (Non-Af Amer) (> 60) BUN/Creatinine Ratio (6-26) Glucose (70-105) mg/dL Calculated Osmolality (280-300) Calcium (8.6-10.3) mg/dL Total Bilirubin (0.3-1.0) mg/dL Direct Bilirubin (0.0-0.2) mg/dL Indirect Bilirubin (0.0-1.2) mg/dL AST (13-39) Units/L ALT (7-52) Units/L Alkaline Phosphatase (34-104) Units/L Troponin I (< 0.04) ng/mL Serum Total Protein (6.4-8.9) g/dL Albumin (3.5-5.7) g/dL Globulin (2.4-3.5) g/dL Albumin/Globulin Ratio (1.1-2.2) Lipase 18 (11-82) Units/L - Radiology Data Radiology results reviewed: Yes I reviewed the patient's radiology results. - EKG Data EKG attestation: Yes I reviewed and interpreted this EKG. EKG shows normal: sinus rhythm Rate: normal Interpretation: no acute changes (no evidence of acute ischemia)
[2018-03-08 00:05] LABS: BUN/Creatinine Ratio 13 (6-26); Blood Urea Nitrogen 13 mg/dL (8-23); Calcium 9.4 mg/dL (8.6-10.3); Carbon Dioxide 25 mEq/L (23-29); Chloride 103 mEq/L (98-107); Glucose 130 mg/dL (70-105); Osmolality,Calculated 288 (280-300); Sodium 138 mEq/L (136-145); eGFR For African Americans > 60 (> 60); eGFR For Non-African Americans > 60 (> 60)
[2018-03-08 00:06] LABS: Troponin I < 0.03 ng/mL (< 0.04)
[2018-03-08] MEDS ORDERED: Isovue-370 500 ML INFUS..BTL IV ONE (00:23)
[2018-03-08] MEDS ORDERED: GI Cocktail 40 ML EACH PO ONE (00:24)
[2018-03-08] MEDS ORDERED: Ondansetron 4 MG/2 ML VIAL IVP ONE (00:37)
--- NOTE | 2018-03-08 01:02 | Emergency Department Note ---
Disposition Clinical Impression: Abdominal pain Qualifiers: Abdominal location: epigastric Qualified Code(s): R10.13 - Epigastric pain Disposition: Admitted As Inpatient Condition: Fair Instructions: Abdominal Pain (ED) Referrals: Margarito Abarca MD [Primary Care Provider] - Forms: ED Satisfaction Letter, Work/School Release Abdominal Pain HPI - General Chief Complaint: ED Abdominal Pain Stated Complaint: "Upper Abd Pain/Open Heart 6wks Ago" Time Seen by Provider: 03/07/18 22:50 Source: patient Mode of arrival: ambulatory Limitations: no limitations Nursing Notes Reviewed: Yes Vital Signs Reviewed: Yes - History of Present Illness Pain Scale: 10 - Related Data Home Medications Medication Instructions Recorded Confirmed Aspirin [Adult Low Dose Aspirin EC] 81 mg PO DAILY 10/15/15 01/24/18 Vitamin D3/Folic Acid [Ortho D 1 cap PO DAILY 10/15/15 01/24/18 3,775 Unit-1 mg Cap] Albuterol Sulfate [Proventil Hfa] 1 puff IH BID PRN 01/11/18 01/24/18 Ipratropium/Albuterol Neb [Duoneb] 3 ml IH BID 01/11/18 01/24/18 Losartan Potassium [Cozaar] 50 mg PO DAILY 01/11/18 01/24/18 Metoprolol Succinate [Toprol Xl] 50 mg PO BID 01/11/18 01/24/18 Simvastatin [Zocor] 40 mg PO HS 01/11/18 01/24/18 Albuterol Neb [Proventil Neb] 2.5 mg PO BID PRN 01/24/18 01/24/18 Vancomycin Oral Soln [Firvanq] 125 mg PO QID 01/24/18 01/24/18 Previous Rx's Medication Instructions Recorded Lactobacillus [Culturelle] 1 each PO BID #14 cap.sprink 01/16/18 predniSONE [PredniSONE] 10 mg PO DAILY #30 tablet 01/16/18 Amiodarone [Cordarone] 200 mg PO DAILY #30 tablet 01/31/18 OxyCODONE/APAP 5/325 [Percocet 1 each PO Q6HR PRN 7 Days #20 01/31/18 5/325 MG] tablet Allergies Allergy/AdvReac Type Severity Reaction Status Date / Time No Known Allergies Allergy Verified 01/24/18 08:35 Abdominal Pain PMH - Past Medical History Medical history: Reports: COPD, coronary artery disease, hyperlipidemia, hypertension, myocardial infarction Male Surgical History: Reports: orthopedic, other, appendectomy, Tonsillectomy, Adenoidectomy Psychiatric history: Reports: no psych history - Social History Smoking status: Never smoker Alcohol use: Reports: occasionally Drug use: Reports: none Physical Exam - General General appearance: alert Course Vital Signs Temperature 97.5 F L 03/07/18 22:43 Pulse Rate 76 03/07/18 22:43 Respiratory Rate 20 03/07/18 22:43 Blood Pressure 163/96 03/07/18 22:43 O2 Sat by Pulse Oximetry 96 03/07/18 22:43 Temperature 97.5 F L 03/07/18 22:43 Pulse Rate 75 03/07/18 23:54 Respiratory Rate 18 03/07/18 23:54 Blood Pressure 136/75 03/07/18 23:54 O2 Sat by Pulse Oximetry 97 03/07/18 23:54 Oxygen Delivery Oxygen Delivery Room Air Abdominal Pain - Lab Data Result diagrams: 03/07/18 22:56 03/07/18 22:56 Lab Results 03/07/18 03/07/18 03/07/18 Range/Units 22:56 22:56 23:27 WBC 9.3 (4.3-11.1) K/mcL RBC 3.92 L (4.19-5.50) M/mcL Hgb 11.4 L (12.9-16.9) g/dL Hct 34.2 L (37.5-50.1) % MCV 87.2 (83.0-100.0) fL MCH 29.1 (28.0-33.3) pg MCHC 33.3 (31.6-35.5) g/dL RDW 13.5 (11.5-14.5) % Plt Count 278 (140-400) K/mcL MPV 10.1 (9.4-12.4) fL Immature Gran % 0.9 (0-4) % Seg Neutrophils % 69.8 % Lymphocytes % 18.3 % Monocytes % 8.6 % Eosinophils % 2.0 % Basophils % 0.4 % Neutrophils # 6.5 (1.6-8.9) K/mcL Lymphocytes # 1.7 (0.6-4.6) K/mcL Monocytes # 0.8 (0.0-1.3) K/mcL Eosinophils # 0.2 (0.0-0.6) K/mcL Basophils # 0.0 (0.0-0.2) K/mcL PT 13.0 H (9.4-12.1) Seconds INR 1.2 APTT 33.8 (26.0-36.0) Seconds Sodium 138 (136-145) mEq/L Potassium 4.0 (3.5-5.1) mEq/L Chloride 103 (98-107) mEq/L Carbon Dioxide 25 (23-29) mEq/L BUN 13 (8-23) mg/dL Creatinine 1.03 (0.70-1.30) mg/dL Est GFR ( Amer) > 60 (> 60) Est GFR (Non-Af Amer) > 60 (> 60) BUN/Creatinine Ratio 13 (6-26) Glucose 130 H (70-105) mg/dL Calculated Osmolality 288 (280-300) Calcium 9.4 (8.6-10.3) mg/dL Troponin I < 0.03 (< 0.04) ng/mL Lipase (11-82) Units/L 03/07/18 Range/Units 23:29 WBC (4.3-11.1) K/mcL RBC (4.19-5.50) M/mcL Hgb (12.9-16.9) g/dL Hct (37.5-50.1) % MCV (83.0-100.0) fL MCH (28.0-33.3) pg MCHC (31.6-35.5) g/dL RDW (11.5-14.5) % Plt Count (140-400) K/mcL MPV (9.4-12.4) fL Immature Gran % (0-4) % Seg Neutrophils % % Lymphocytes % % Monocytes % % Eosinophils % % Basophils % % Neutrophils # (1.6-8.9) K/mcL Lymphocytes # (0.6-4.6) K/mcL Monocytes # (0.0-1.3) K/mcL Eosinophils # (0.0-0.6) K/mcL Basophils # (0.0-0.2) K/mcL PT (9.4-12.1) Seconds INR APTT (26.0-36.0) Seconds Sodium (136-145) mEq/L Potassium (3.5-5.1) mEq/L Chloride (98-107) mEq/L Carbon Dioxide (23-29) mEq/L BUN (8-23) mg/dL Creatinine (0.70-1.30) mg/dL Est GFR ( Amer) (> 60) Est GFR (Non-Af Amer) (> 60) BUN/Creatinine Ratio (6-26) Glucose (70-105) mg/dL Calculated Osmolality (280-300) Calcium (8.6-10.3) mg/dL Troponin I (< 0.04) ng/mL Lipase 18 (11-82) Units/L Attestation Statement - Attestation Attestation: I, Chava Gallardo, examined this patient and my medical decision-making was reviewed with the DROSS PULLER/PA/Advanced Practice Nurse/Resident Physician. I agree with the documented findings, disposition and treatment plan as described except to the extent set forth below. 78-year-old male presents emergency Department with concerns of epigastric pain. Patient states the pain is a aching in the center of his epigastrium that radiates across the upper abdomen. Patient states that he initially became diaphoretic and lightheaded and nauseated with the epigastric pain. Patient had a triple bypass performed 6 weeks ago after having symptoms of pressure on his chest. Patient does not have pressure in his chest today however I am still concerned about possible coronary artery disease. Patient has not vomited. He denies changes in his bowel habits. Patient reports symptoms occurred while sitting in his chair. Initial troponin negative. EKG showed normal sinus rhythm with a rate of 78 without evidence of STEMI.. CT of the abdomen and pelvis was negative for acute surgical pathology. Patient will be admitted to the hospitalist for further care and evaluation.
[2018-03-08] MEDS ORDERED: Naloxone 0.4 MG/ML INJ IVP PRN (01:40)
[2018-03-08] MEDS ORDERED: Pantoprazole 40 MG VIAL IVP ONE (01:41)
--- NOTE | 2018-03-08 01:41 | Internal Med History&Physical ---
Date of Encounter: 03/08/18 Time of Encounter: 01:35 Internal Medicine - H&P: HPI Chief complaint: Chest pain Admitted From: Emergency Dept Plans for Post Hospital Care: Home History of present illness: Mr. Barnard is a 78 year old male who has history of coronary disease status post three-vessel CABG on 01/24/2018, postoperative A. fib not on anticoagulation, hypertension hyperlipidemia COPD not on home O2 who presented to the ED with complaints of epigastric pain/lower chest pain that radiates to the upper and bilateral abdomen. The patient also complained of diaphoresis and feeling lightheaded with nausea. This started around 6 PM after eating at [employer]. The pain is constant. Worse with breathing. No alleviating factors. He took ibuprofen a couple times but that did not help. The patient also describes urinary hesitancy and dysuria. In the ED he was hemodynamically stable however his blood pressure on initial presentation was 163/96 which came down later. He was given aspirin 325 mg as well as Zofran and IV Solu-Medrol however the patient is not wheezing. Laboratory workup was unremarkable with troponins of less than 0.03 and a lipase that was normal. EKG with no acute ST or T-wave changes. Chest x-ray was clear. A CT abdomen and pelvis was with no acute findings. The patient denies any headache, blurry vision, fever, chills, diarrhea, constipation, or neurological symptoms. The patient is being admitted to rule out an atypical presentation of ACS given his history of recent CABG. The patient had an echocardiogram back in December which showed an EF of 60-65% with mild left ventricular diastolic dysfunction. Past Med Surg Social Fam HX - Past Medical History Medical history: COPD, coronary artery disease, hyperlipidemia, hypertension, myocardial infarction Psychiatric history: no psych history - Past Surgical History Surgical History: appendectomy - Social History Smoking Status: Never smoker Smokeless Tobacco Status: No Alcohol use: occasionally Drug use: none Internal Medicine - H&P: Meds Aspirin [Adult Low Dose Aspirin EC] 81 mg PO DAILY 10/15/15 [History] Albuterol Sulfate [Proventil Hfa] 1 puff IH BID PRN 01/11/18 [History] Ipratropium/Albuterol Neb [Duoneb] 3 ml IH BID 01/11/18 [History] Losartan Potassium [Cozaar] 50 mg PO DAILY 01/11/18 [History] Metoprolol Succinate [Toprol Xl] 50 mg PO BID 01/11/18 [History] Simvastatin [Zocor] 40 mg PO HS 01/11/18 [History] Albuterol Neb [Proventil Neb] 2.5 mg PO BID PRN 01/24/18 [History] 3 Allergy/AdvReac Type Severity Reaction Status Date / Time No Known Allergies Allergy Verified 01/24/18 08:35 All Systems PM: A 10-system review of systems was performed and is negative for pertinent findings except as documented above in the HPI. Review of systems: All systems reviewed are negative except as mentioned above - Constitutional Vitals: Temp Pulse Resp BP Pulse Ox 97.5 F L 72 16 145/87 100 03/07/18 22:43 03/08/18 01:00 03/08/18 01:00 03/08/18 01:00 03/08/18 01:00 Exam: GEN: NAD HEENT: AT, NC, No cyanosis, oral mucosa is moist, No JVD Lymphatics: No lymphadenoapthy Eyes: Extrocular muscles intact, anicteric CVS:RRR. S1, S2, No m/r/g RESP: CTAB ABD: Soft, NT, ND, +BS EXT: No edema, No rashes, 2+ DP NEURO: Nonfocal, CN II-XII intact, No focal motor or sensory deficits Psych: Cooperative, Not anxious or depressed Internal Med - H&P Results - Labs CBC & Chem 7: 03/07/18 22:56 03/07/18 22:56 Labs: Short CBC 03/07/18 Range/Units 22:56 WBC 9.3 (4.3-11.1) K/mcL Hgb 11.4 L (12.9-16.9) g/dL Hct 34.2 L (37.5-50.1) % Plt Count 278 (140-400) K/mcL Neutrophils # 6.5 (1.6-8.9) K/mcL BMP 03/07/18 22:56 Sodium 138 Potassium 4.0 Chloride 103 Carbon Dioxide 25 BUN 13 Creatinine 1.03 Glucose 130 H Calcium 9.4 Cardiac Enzymes 03/07/18 Range/Units 22:56 Troponin I < 0.03 (< 0.04) ng/mL - Impressions ITS Impressions Chest X-Ray 03/07/18 23:27 IMPRESSION: 1. No acute cardiopulmonary disease. D/ / Familia Duncan MD / Familia Duncan MD Interpreting Provider: Familia Duncan MD Abdomen/Pelvis CT 03/08/18 00:28 IMPRESSION: 1. No acute findings identified in the abdomen and pelvis. 2. Bladder wall calcifications or punctate bladder stones. 3. The stable left adrenal adenoma. D/ / Familia Duncan MD / Familia Duncan MD Interpreting Provider: Familia Duncan MD - Assessment and plan (1) Chest pain Current Visit: No Status: Acute Assessment and plan: The patient's symptoms are mostly epigastric pain however given his history we will admit him to telemetry and trend his cardiac enzymes. We will check a limited echo. We will give the patient a trial of IV Protonix once and put him on oral PPI and Tums. check LFTs as those were not checked in the ED. Check A1c as that was not checked when he was here last time. Continue aspirin. If limited echo is changed from recent echo done or if troponins elevate we will proceed with further cardiac workup. Qualifiers: Chest pain type: unspecified Qualified Code(s): R07.9 - Chest pain, unspecified (2) Abdominal pain Current Visit: Yes Status: Acute Assessment and plan: Patient has epigastric pain radiating to RUQ and LUQ. CT abd/pelvis nothing acute. He has no physical exam findings. Will get LFTs and proceed from there. Normal lipase Qualifiers: Abdominal location: unspecified location Qualified Code(s): R10.9 - Unspecified abdominal pain (3) Dysuria Current Visit: Yes Status: Acute Assessment and plan: We will get a UA. (4) CAD (coronary artery disease) Current Visit: No Status: Acute Assessment and plan: Continue with cardiac meds. Patient is status post CABG about 6 weeks ago. Qualifiers: Coronary Disease-Associated Artery/Lesion type: [place] artery [place] vs. transplanted heart: [place] heart Associated angina: with unstable angina Qualified Code(s): I25.110 - Atherosclerotic heart disease of [place] coronary artery with unstable angina pectoris (5) Hypertension Current Visit: No Status: Chronic Assessment and plan: Resume home antihypertensives. Qualifiers: Hypertension type: essential hypertension Qualified Code(s): I10 - Essential (primary) hypertension (6) DVT prophylaxis Current Visit: No Status: Chronic Assessment and plan: Heparin subcutaneous - Time Spent With Patient Total time spent is greater than 50% in coordination of care (as documented) at patient's floor/unit and/or counseling patient:
[2018-03-08 02:49] LABS: Alanine Aminotransferase 61 Units/L (7-52); Albumin 3.7 g/dL (3.5-5.7); Albumin/Globulin Ratio 1.1 (1.1-2.2); Alkaline Phosphatase 173 Units/L (34-104); Aspartate Amino Transferase 139 Units/L (13-39); Bilirubin,Direct 0.5 mg/dL (0.0-0.2); Bilirubin,Indirect 0.3 mg/dL (0.0-1.2); Bilirubin,Total 0.8 mg/dL (0.3-1.0); Globulin 3.3 g/dL (2.4-3.5)
[2018-03-08 05:34] LABS: Basophils % 0.4 %; Hematocrit 33.6 % (37.5-50.1); Hemoglobin 11.2 g/dL (12.9-16.9); Immature Granulocytes % 0.7 % (0-4); Lymphocytes # 0.5 K/mcL (0.6-4.6); Lymphocytes % 11.9 %; Mean Corpuscular HGB Conc 33.3 g/dL (31.6-35.5); Mean Corpuscular Hemoglobin 28.7 pg (28.0-33.3); Mean Corpuscular Volume 86.2 fL (83.0-100.0); Mean Platelet Volume 9.9 fL (9.4-12.4); Monocytes # 0.1 K/mcL (0.0-1.3); Monocytes % 1.3 %; Neutrophils # 3.9 K/mcL (1.6-8.9); Platelet Count 276 K/mcL (140-400); Red Cell Distribution Width 13.2 % (11.5-14.5); Segmented Neutrophils % 85.7 %
[2018-03-08 05:54] LABS: BUN/Creatinine Ratio 15 (6-26); Blood Urea Nitrogen 14 mg/dL (8-23); Calcium 9.4 mg/dL (8.6-10.3); Carbon Dioxide 26 mEq/L (23-29); Chloride 102 mEq/L (98-107); Glucose 192 mg/dL (70-105); Osmolality,Calculated 286 (280-300); Potassium 4.4 mEq/L (3.5-5.1); Sodium 135 mEq/L (136-145); eGFR For African Americans > 60 (> 60); eGFR For Non-African Americans > 60 (> 60)
[2018-03-08 06:08] LABS: Thyroid Stimulating Hormone 1.496 mcIU/mL (0.340-5.600)
[2018-03-08] MEDS: *HR* Heparin 5,000 UNIT/ML VIAL SQ SCH ×2 (06:30→12:49)
[2018-03-08 08:21] LABS: Bilirubin,Urine Negative (Negative); Blood,Urine Negative (Negative); Clarity,Urine Clear (Clear); Color,Urine Yellow (Yellow); Glucose,Urine (UA) Normal (Normal); Ketones,Urine Negative (Negative); Leukocyte Esterase,Urine Negative (Negative); Nitrite,Urine Negative (Negative); Protein,Urine Negative (Neg-Trace); Specific Gravity,Urine > 1.030 (1.010-1.025); Urobilinogen,Urine Normal (Normal)
[2018-03-08 10:12] LABS: Estimated Average Glucose 117 mg/dl; Hemoglobin A1C 5.7 %
[2018-03-08] MEDS ORDERED: Ipratropium/Albuterol Neb 3 ML IH PRN (11:58)
--- NOTE | 2018-03-08 14:51 | Cardiology Consult Note ---
Date of Encounter: 03/08/18 Time of Encounter: 13:45 Assessment and Plan (1) Abdominal pain Current Visit: Yes Status: Acute Per cardiology: -Admitted with RUQ abdominal pain after eating [employer]. -LFTs elevated. -Management per primary service. Qualifiers: Abdominal location: right upper quadrant Qualified Code(s): R10.11 - Right upper quadrant pain (2) CAD (coronary artery disease) Current Visit: No Status: Chronic Per cardiology: -Known CAD s/p CABG 01/24/18 with REESE to LAD, SVG to OM2, SVG to PDA. -01/12/[address] [facility] with 95% mid LAD, 90% proximal circumflex, 90% distal RCA, 95% RPDA. -01/11/18 LVEF 60-65%, no segmental wall motion abnormalities. -TTE this admission with LVEF 60%, no segmental wall motion abnormalities, -Denies chest pain/pressure. -No acute ECG changes. -ON asa, statin, BB. -With elevated LFTs, will hold statin for now, can re-assess in outpatient setting. -DO not suspect abdominal pain cardiac in nature. -Anticipate cardiology sign off, once seen and evaluated by . -Will arrange outpatient follow up. Qualifiers: Coronary Disease-Associated Artery/Lesion type: [place] artery [place] vs. transplanted heart: [place] heart Associated angina: without angina Qualified Code(s): I25.10 - Atherosclerotic heart disease of [place] coronary artery without angina pectoris Discussion w patient/family: The assessment and plan as outlined above was discussed with the patient who expressed understanding and agreement. All questions were answered. Thank you for involving us in the care of your patient. Please call with any questions. Discussed and reviewed with . History of Present Illness Consult date: 03/08/18 Requesting physician: Mc Berg Consult reason: recent CABG Chief complaint: abdominal pain History of present illness: Mr. Barnard is a 78 year old male with a relevant past medical history of CAD s/p recent CABG, HTN, HLD, COPD, recent c.diff who presented to [facility] with complaints of right upper quadrant abdominal pain after eating at [employer]. Patient denies chest pain. Report angina is chest "pressure." Denies chest pressure. Denies worsening shortness of breath. Denies increased fatigue. Past Med Surg Social Fam HX - Past Medical History Attestation: Yes The following information was validated with the patient. Source: patient, old records reviewed Medical history: atrial fibrillation, COPD, coronary artery disease, hyperlipidemia, hypertension, myocardial infarction Psychiatric history: no psych history - Past Surgical History Surgical History: appendectomy - Social History Smoking Status: Never smoker Smokeless Tobacco Status: No Alcohol use: occasionally Drug use: none Medications and Allergies Aspirin [Adult Low Dose Aspirin EC] 81 mg PO DAILY 10/15/15 [History] Albuterol Sulfate [Proventil Hfa] 1 - 2 puff IH Q6H PRN 01/11/18 [History] Ipratropium/Albuterol Neb [Duoneb] 3 ml IH Q8H PRN 01/11/18 [History] Losartan Potassium [Cozaar] 50 mg PO DAILY 01/11/18 [History] Metoprolol Succinate [Toprol Xl] 50 mg PO BID 01/11/18 [History] Simvastatin [Zocor] 40 mg PO HS 01/11/18 [History] Amiodarone [Cordarone] 200 mg PO DAILY 03/08/18 [History] 3 Allergy/AdvReac Type Severity Reaction Status Date / Time No Known Allergies Allergy Verified 01/24/18 08:35 All Systems Review: The remainder of the systems were reviewed and are negative - Cardiovascular Cardiovascular: as per HPI - Gastrointestinal Gastrointestinal: abdominal pain Physical Examination Vital Signs, Last 4 Hours Temp Pulse Resp BP Pulse Ox 03/08/18 11:35 97.8 F 77 16 165/87 92 General: Conversant, No Apparent Distress HEENT: Atraumatic, Normocephaly, Mucus Membranes Moist Neck: No JVD, Normal carotid pulses Cardiac: Reg Rate and Rhythm, Normal S1 and S2, No Murmur Lungs: Normal Breath Sounds, No Wheeze, Rales, Rhonchi Neuro: Alert and responsive, No focal deficits noted Abdomen: Soft, Other (Tender to right upper quadrant. ) Skin: No rashes noted on visualized skin Musculoskeletal: No Chest Wall Tenderness Extremities: No Clubbing, No Cyanosis, No Edema, Normal Pulses Results 03/08/18 05:16 03/08/18 05:16 Lab Results Impressions Chest X-Ray 03/07/18 23:27 IMPRESSION: 1. No acute cardiopulmonary disease. D/ / Familia Duncan MD / Familia Duncan MD Interpreting Provider: Familia Duncan MD Abdomen/Pelvis CT 03/08/18 00:28 IMPRESSION: 1. No acute findings identified in the abdomen and pelvis. 2. Bladder wall calcifications or punctate bladder stones. 3. Stable left adrenal adenoma. D/ / 03/08/2018 05:43:42 Familia Duncan MD / milan Interpreting Provider: Familia Ducnan MD Echocardiogram Limited Views 03/08/18 01:45 Impressions: LVEF 60%. Normal LV chamber size, wall thickness and function. Atypical septal motion consistent with post-operative status. Left Ventricular Wall Motion: Rest Echo Findings All wall segments showed normal motion. Findings: Study Quality * Technically adequate exam. ECG Findings * Normal sinus rhythm. Left Ventricle * LVEF 60%. * Normal LV chamber size, wall thickness and function. * Atypical septal motion consistent with post-operative status. Right Ventricle * Normal right ventricular structure and function. Left Atrium * Mildly dilated left atrium. Right Atrium * Normal right atrial size. IVC * Normal IVC dimensions and inspiratory collapse. Gallbladder Ultrasound 03/08/18 11:30 IMPRESSION: Intrahepatic biliary dilatation most prominent centrally. Dilatation seen on recent CT in the left hepatic lobe is not well visualized on today's exam likely due to bowel gas. Gallbladder is distended and contains a large complex. Common bile duct measures up to 7 mm. D/ / Altagracia Cobb MD / Altagracia Cobb MD Interpreting Provider: Altagracia Cobb MD Active Medications Albuterol/Ipratropium (Duoneb) 3 ml IH Q8H PRN PRN Reason: Shortness Of Breath/Wheezing Stop: 09/07/18 11:59 Aspirin (Aspirin Ec) 81 mg PO DAILY [facility] Stop: 09/08/18 09:01 Calcium Carbonate (Tums) 1,000 mg PO QID PAM PRN Reason: Protocol Stop: 09/07/18 09:01 Last Admin: 03/08/18 12:49 Dose: 1,000 mg Heparin Sodium (Porcine) (Heparin Lock) 500 unit IV ONCE PRN PRN Reason: [place] while in RADIOLOGY Stop: 03/10/18 00:24 Heparin Sodium (Porcine) (Heparin) 5,000 unit SQ Q8HCO [facility] Stop: 09/07/18 06:01 Last Admin: 03/08/18 12:49 Dose: 5,000 unit Losartan Potassium (Cozaar) 50 mg PO DAILY PAM Stop: 09/08/18 09:01 Metoprolol Succinate (Toprol Xl) 50 mg PO BID [facility] Stop: 09/07/18 21:01 Naloxone HCl (Narcan) 0.4 mg IVP Q2MIN PRN PRN Reason: SEE COMMENTS Stop: 09/07/18 01:41 Omeprazole (Prilosec) 20 mg PO DAILY@0630 PAM PRN Reason: Protocol Stop: 09/07/18 06:31 Last Admin: 03/08/18 06:30 Dose: 20 mg Simvastatin (Zocor) 40 mg PO HS PAM PRN Reason: Protocol Stop: 09/07/18 21:01 Laboratory Tests 03/07/18 03/08/18 03/08/18 22:56 05:16 05:16 Hgb 11.2 L Creatinine 0.93 Troponin I < 0.03 03/08/18 03/08/18 05:16 12:00 Hgb Creatinine Troponin I < 0.03 < 0.03 - Imaging and Cardiology Chest Xray: report reviewed Echo: report reviewed Cardiac cath: report reviewed - EKG Interpretation EKG results cardiology: personally reviewed (ECG with SR, HR 78.), other ( Telemetry reviewed with average HR previous 12 hours noted to be 81, SR. PVCs and PACs noted.) Consult Discharge Plan - Plan Referrals: Margarito Abarca MD [Primary Care Provider] -
[2018-03-08 15:33] VITALS: BP 136/82
--- NOTE | 2018-03-08 17:59 | Discharge Summary ---
- NOTES TO OUTPATIENT PROVIDER Notes to Outpatient Provider: Monitor liver function tests for elevated transaminases and consideration for GI referral for distended gallbladder with complex. Date of Encounter: 03/08/18 Time of Encounter: 11:00 - Discharge Diagnosis (1) Hypertension Priority: Secondary Status: Chronic Qualifiers: Hypertension type: essential hypertension Qualified Code(s): I10 - Essential (primary) hypertension (2) Chest pain Priority: Primary Status: Acute Qualifiers: Chest pain type: unspecified Qualified Code(s): R07.9 - Chest pain, unspecified (3) CAD (coronary artery disease) Priority: Secondary Status: Chronic Qualifiers: Coronary Disease-Associated Artery/Lesion type: [place] artery [place] vs. transplanted heart: [place] heart Associated angina: without angina Qualified Code(s): I25.10 - Atherosclerotic heart disease of [place] coronary artery without angina pectoris (4) Abdominal pain Priority: Primary Status: Acute Qualifiers: Abdominal location: right upper quadrant Qualified Code(s): R10.11 - Right upper quadrant pain (5) Dysuria Priority: Secondary Status: Acute Hospital course: Patient is a 78-year-old male with past medical history significant for coronary disease status post three-vessel CABG on 01/24/2018, postoperative A. fib not on anticoagulation, hypertension hyperlipidemia COPD not on home O2 who presented to the ED with complaints of epigastric pain/lower chest pain that radiates to the upper and bilateral abdomen. The patient also complained of diaphoresis and feeling lightheaded with nausea. This started around 6 PM after eating at [employer]. The pain is constant. Worse with breathing. No alleviating factors. He took ibuprofen a couple times but that did not help. The patient also describes urinary hesitancy and dysuria. In the ED he was hemodynamically stable however his blood pressure on initial presentation was 163/96 which came down later. He was given aspirin 325 mg as well as Zofran and IV Solu-Medrol however the patient is not wheezing. Laboratory workup was unremarkable with troponins of less than 0.03 and a lipase that was normal. EKG with no acute ST or T-wave changes. Chest x-ray was clear. A CT abdomen and pelvis was with no acute findings. Patient was admitted to medical surgical floor for ACS rule out. The patients hospital stay his cardiac biomarkers were negative and cardiology was consulted and ACS was ruled out. Recommendations for patient to continue his aspirin and beta gemma. Right upper quadrant ultrasound was done which showed Intrahepatic biliary dilatation most prominent centrally. Gallbladder is distended and contains a large complex. Patient also with elevated LFTs. Patient will be discharged to follow-up with primary care provider to monitor liver enzymes as an outpatient and to hold statin until liver enzymes normalized. Patient will also to follow-up with GI monitoring of gallbladder complex. Time spent discussing smoking cessation with patient: 3 to 10 minutes - Time Spent with Patient Total time spent providing and/or coordinating discharge services: Less than 30 minutes - Discharge Medications Home Medications: Aspirin [Adult Low Dose Aspirin EC] 81 mg PO DAILY 10/15/15 [History] Albuterol Sulfate [Proventil Hfa] 1 - 2 puff IH Q6H PRN 01/11/18 [History] Ipratropium/Albuterol Neb [Duoneb] 3 ml IH Q8H PRN 01/11/18 [History] Losartan Potassium [Cozaar] 50 mg PO DAILY 01/11/18 [History] Metoprolol Succinate [Toprol Xl] 50 mg PO BID 01/11/18 [History] Amiodarone [Cordarone] 200 mg PO DAILY 03/08/18 [History] Allergies/Adverse Reactions: 3 Allergy/AdvReac Type Severity Reaction Status Date / Time No Known Allergies Allergy Verified 01/24/18 08:35 Date of admission: 03/08/18 03:09 Primary care physician: Margarito Abarca MD Consults: 03/08/18 10:53 Consult to Cardiology [CONS] Routine Comment: Consulting Provider: Cardiology Edna Reason for Consult: epigastric pain recent CABG Call Completed: Yes - Constitutional Vitals: Temp Pulse Resp BP Pulse Ox 98.3 F 75 20 136/82 94 03/08/18 15:32 03/08/18 15:32 03/08/18 15:32 03/08/18 15:32 03/08/18 15:32 - Patient Status Disposition: Home, Self-Care Condition: Fair - Discharge Instructions Follow Up With: Margarito Abarca MD [Primary Care Provider] -
--- NOTE | 2018-03-08 18:59 | Physician Discharge Referral ---
Home Health/Hosp Referral Info Transfer to: Home Health - Diagnosis (1) Hypertension Status: Chronic (2) Chest pain Status: Acute (3) CAD (coronary artery disease) Status: Chronic (4) Abdominal pain Status: Acute (5) Dysuria Status: Acute - Respiratory Orders Smoking Cessation: Smoking cessation has been advised. For more information, call the [place] Tobacco Quit Line at 1-299-DPMK-NOW. - Services Needed Following services are medically necessary services: Physical Therapy - Transfer Medications Home Medications: Aspirin [Adult Low Dose Aspirin EC] 81 mg PO DAILY 10/15/15 [History] Albuterol Sulfate [Proventil Hfa] 1 - 2 puff IH Q6H PRN 01/11/18 [History] Ipratropium/Albuterol Neb [Duoneb] 3 ml IH Q8H PRN 01/11/18 [History] Losartan Potassium [Cozaar] 50 mg PO DAILY 01/11/18 [History] Metoprolol Succinate [Toprol Xl] 50 mg PO BID 01/11/18 [History] Amiodarone [Cordarone] 200 mg PO DAILY 03/08/18 [History] Allergies/Adverse Reactions: 3 Allergy/AdvReac Type Severity Reaction Status Date / Time No Known Allergies Allergy Verified 01/24/18 08:35 Certification: Further, I certify that my clinical findings support that this patient is homebound (i.e. absences from home require considerable and taxing effort and are for medical reasons or mandaen services or infrequently or short duration when for other reasons) because: Homebound Reason: Patient requires assistance of a person or device to safely leave home Attestation: My signature below is to certify that this patient is under my care and that I, or nurse practitioner, or a physician's molding line assistant working with me, has a face-to -face encounter with this patient.
[2018-03-08] MEDS ORDERED: Metoprolol XL (24 HR) Succ 50 MG TAB.ER.24H PO SCH (21:00)
--- NOTE | 2018-03-09 08:24 | Electrocardiograph Report ---
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
[2018-03-09] MEDS ORDERED: Aspirin Enteric Coated 81 MG Tablet PO SCH (09:00)
== END 2018-03-08 19:30 | disposition home or self-care (01) ==
LOC: EMEROO 22:31 → 2ANU 22:31
PROVIDERS: ADMIT Internal Medicine; ATTEND Internal Medicine

== ENCOUNTER 2018-04-20 16:08 | Inpatient (IN) ==
[2018-04-20] MEDS ORDERED: Naloxone 0.4 MG/ML INJ IVP PRN ×2 (20:10→20:16)
--- NOTE | 2018-04-20 20:12 | Internal Med History&Physical ---
Date of Encounter: 04/21/18 Time of Encounter: 20:11 Internal Medicine - H&P: HPI Chief complaint: Hip FX History of present illness: Mr. Barnard is a 78 year old male with PMH of HTN , hyperlipidemia , CAD , COPD who sustained a fall while climbing a ladder and has hip fracture, Ortho was consulted by ER staff and they agree to see the patient in consult, He will be admitted for further evaluation. Past Med Surg Social Fam HX - Past Medical History Medical history: COPD, coronary artery disease, hyperlipidemia, hypertension, myocardial infarction Additional medical history: C-DIFF. LUNG NODULE. LIVER LESION. BRONCHIOLITIS Psychiatric history: no psych history - Past Surgical History Surgical History: appendectomy Additional surgical history: pins put in ankle when broke it- 5 years ago - Social History Smoking Status: Former smoker Smokeless Tobacco Status: No Alcohol use: occasionally Drug use: none Internal Medicine - H&P: Meds Aspirin [Adult Low Dose Aspirin EC] 81 mg PO DAILY 10/15/15 [History] Albuterol Sulfate [Proventil Hfa] 1 - 2 puff IH Q6H PRN 01/11/18 [History] Ipratropium/Albuterol Neb [Duoneb] 3 ml IH Q8H PRN 01/11/18 [History] Metoprolol Succinate [Toprol Xl] 50 mg PO BID 01/11/18 [History] Simvastatin [Zocor] 40 mg PO HS 04/20/18 [History] 3 Allergy/AdvReac Type Severity Reaction Status Date / Time No Known Allergies Allergy Verified 01/24/18 08:35 All Systems PM: A 10-system review of systems was performed and is negative for pertinent findings except as documented above in the HPI. - Constitutional Constitutional: no chills, no fever(s), no night sweats - Cardiovascular Cardiovascular ROS IM: no chest pain, no diaphoresis, no dyspnea, no lightheadedness, no palpitations, no syncope - Respiratory Respiratory: no cough, no dyspnea, no wheezing, no excessive phlegm production - Gastrointestinal Gastrointestinal: no abdominal pain, no diarrhea, no hematemesis, no hematochezia, no melena, no nausea, no vomiting - Musculoskeletal Additional comments: Hip pain - Constitutional Vitals: Temp Pulse Resp BP Pulse Ox 97.4 F L 81 18 184/90 96 04/20/18 19:15 04/20/18 19:15 04/20/18 19:15 04/20/18 19:15 04/20/18 19:15 General appearance: Present: A&O X 3 - Head Head exam: Present: atraumatic, normocephalic - Neck Neck exam general surgery: Present: supple, trachea midline. Absent: lymphadenopathy - Respiratory Respiratory exam: Present: CTAB. Absent: accessory muscle use, rales, rhonchi, wheezes - Cardiovascular Cardiovascular exam: Present: RRR, +S1, +S2. Absent: diastolic murmur, gallop, rubs, systolic murmur - GI/Abdominal GI/Abdominal exam: Present: normal bowel sounds, soft, no peritoneal signs. Absent: distended, tenderness - Extremities Exam Extremities exam: Present: warm, radial pulses palpable and symmetrical. Absent : calf tenderness, cyanotic, pedal edema - Neurological Exam Neurological exam: Present: CN II-XII intact, oriented X3, no focal deficits. Absent: pronater drift, facial droop, speech deficit Internal Med - H&P Results - Labs CBC & Chem 7: 04/20/18 21:03 04/20/18 21:03 - Assessment and plan (1) Hip fracture Current Visit: Yes Status: Acute Assessment and plan: Surgery was consulted for further evaluation, pain management. (2) Hypertension Current Visit: No Status: Chronic Assessment and plan: We will continue home meds Qualifiers: Hypertension type: essential hypertension Qualified Code(s): I10 - Essential (primary) hypertension (3) Hyperlipidemia Current Visit: Yes Status: Acute Assessment and plan: We will cont home statin, obtain FLP in AM Qualifiers: Qualified Code(s): E78.5 - Hyperlipidemia, unspecified (4) CAD (coronary artery disease) Current Visit: No Status: Chronic Qualifiers: Coronary Disease-Associated Artery/Lesion type: [place] artery [place] vs. transplanted heart: [place] heart Associated angina: without angina Qualified Code(s): I25.10 - Atherosclerotic heart disease of [place] coronary artery without angina pectoris (5) COPD (chronic obstructive pulmonary disease) Current Visit: Yes Status: Acute (6) DVT prophylaxis Current Visit: No Status: Chronic Assessment and plan: Heparin 5000 BID - Time Spent With Patient Total time spent is greater than 50% in coordination of care (as documented) at patient's floor/unit and/or counseling patient:
[2018-04-20] MEDS: *HR* OxyCODONE Immed Rel 5 MG TABLET PO PRN (20:31)
[2018-04-20] MEDS: Acetaminophen 325 MG TABLET PO PRN (20:31)
[2018-04-20] MEDS ORDERED: Ipratropium/Albuterol Neb 3 ML IH PRN (20:50)
[2018-04-20 21:24] LABS: Hematocrit 38.2 % (37.5-50.1); Hemoglobin 12.7 g/dL (12.9-16.9); Mean Corpuscular HGB Conc 33.2 g/dL (31.6-35.5); Mean Corpuscular Hemoglobin 29.1 pg (28.0-33.3); Mean Corpuscular Volume 87.6 fL (83.0-100.0); Mean Platelet Volume 9.9 fL (9.4-12.4); Platelet Count 228 K/mcL (140-400); Red Blood Count 4.36 M/mcL (4.19-5.50); Red Cell Distribution Width 13.6 % (11.5-14.5)
[2018-04-20] MEDS: Metoprolol XL (24 HR) Succ 50 MG TAB.ER.24H PO SCH (21:32)
[2018-04-20 21:33] LABS: Prothrombin Time 11.8 Seconds (9.4-12.1)
[2018-04-20 21:35] LABS: Activated Partial Thrombo Time 33.3 Seconds (26.0-36.0)
[2018-04-20] MEDS: 0.9 % Sodium Chloride 1,000 ML IVC SCH (21:35)
[2018-04-20 21:44] LABS: Alanine Aminotransferase 20 Units/L (7-52); Albumin/Globulin Ratio 1.4 (1.1-2.2); Alkaline Phosphatase 121 Units/L (34-104); Aspartate Amino Transferase 18 Units/L (13-39); BUN/Creatinine Ratio 14 (6-26); Bilirubin,Total 0.4 mg/dL (0.3-1.0); Blood Urea Nitrogen 12 mg/dL (8-23); Calcium 9.4 mg/dL (8.6-10.3); Carbon Dioxide 29 mEq/L (23-29); Chloride 105 mEq/L (98-107); Globulin 2.8 g/dL (2.4-3.5); Glucose 148 mg/dL (70-105); Magnesium 1.9 mg/dL (1.6-2.6); Osmolality,Calculated 287 (280-300); Phosphorous 3.7 mg/dL (2.7-4.5); Potassium 4.5 mEq/L (3.5-5.1); Sodium 137 mEq/L (136-145); Total Protein 6.8 g/dL (6.4-8.9); eGFR For African Americans > 60 (> 60); eGFR For Non-African Americans > 60 (> 60)
[2018-04-20] MEDS: *HR* HYDROcodone/Acet 5/325 mg TABLET PO PRN (23:47)
[2018-04-21 01:39] LABS: Chol/HDL Ratio 4.6 (0-4.9)
[2018-04-21] MEDS: Ondansetron 4 MG/2 ML VIAL IVP PRN ×2 (04:51→14:57)
[2018-04-21] MEDS ORDERED: Ketorolac 30 MG/ML VIAL IVP ONE (04:58)
[2018-04-21] MEDS: 0.9 % Sodium Chloride 1,000 ML IVC SCH ×2 (05:19→14:57)
--- NOTE | 2018-04-21 06:50 | Orthopedic Consult Note ---
Date of Encounter: 04/21/18 Time of Encounter: 06:48 History of Present Illness HPI: Mr. Barnard is a 78 year old male Patient status post fall yesterday with injury to left hip. Patient denies any head trauma. Patient seen in another facility and transferred for definitive management of left hip fracture. Patient has significant cardiac history status post bypass surgery in January. Physical exam Alert and oriented 3 Left lower extremity Shortened and externally rotated Neurovascular intact X-rays show displaced left intertrochanteric hip fracture Recommendation left hip open reduction intramedullary nail fixation patient will require medical clearance. We reviewed the risks and benefits as well as recovery. All questions were answered. The patient agreed to this treatment plan and appeared to understand the plan is reviewed. Past Med Surg Social Fam HX - Past Medical History Medical history: COPD, coronary artery disease, hyperlipidemia, hypertension, myocardial infarction Additional medical history: C-DIFF. LUNG NODULE. LIVER LESION. BRONCHIOLITIS Psychiatric history: no psych history - Past Surgical History Surgical History: appendectomy Additional surgical history: pins put in ankle when broke it- 5 years ago - Social History Smoking Status: Former smoker Smokeless Tobacco Status: No Alcohol use: occasionally Drug use: none Medications and Allergies Aspirin [Adult Low Dose Aspirin EC] 81 mg PO DAILY 10/15/15 [History] Albuterol Sulfate [Proventil Hfa] 1 - 2 puff IH Q6H PRN 01/11/18 [History] Ipratropium/Albuterol Neb [Duoneb] 3 ml IH Q8H PRN 01/11/18 [History] Metoprolol Succinate [Toprol Xl] 50 mg PO BID 01/11/18 [History] Simvastatin [Zocor] 40 mg PO HS 04/20/18 [History] 3 Allergy/AdvReac Type Severity Reaction Status Date / Time No Known Allergies Allergy Verified 01/24/18 08:35 All Systems Reviewed: The remainder of the systems were reviewed and are negative Physical Exam - Constitutional Vitals: Temp Pulse Resp BP Pulse Ox 98.2 F 81 17 159/87 96 04/21/18 06:44 04/21/18 06:44 04/21/18 06:44 04/21/18 06:44 04/21/18 06:44 Results - Labs Result Diagrams: 04/20/18 21:03 04/20/18 21:03 Labs: Abnormal lab results WBC 12.6 K/mcL (4.3-11.1) H 04/20/18 21:03 Hgb 12.7 g/dL (12.9-16.9) L 04/20/18 21:03 Glucose 148 mg/dL (70-105) H 04/20/18 21:03 Alkaline Phosphatase 121 Units/L (34-104) H 04/20/18 21:03 Cholesterol 212 mg/dL (< 200) H 04/21/18 00:49 LDL Cholesterol, Calc 154 mg/dL (0-99) H 04/21/18 00:49 H & H 04/20/18 Range/Units 21:03 Hgb 12.7 L (12.9-16.9) g/dL Hct 38.2 (37.5-50.1) % All other labs normal. Consult Discharge Plan - Plan Referrals: Jennifer Iyer, MORTGAGE SALES MANAGER [Primary Care Provider] -
[2018-04-21] MEDS: Acetaminophen 325 MG TABLET PO PRN (08:07)
[2018-04-21] MEDS: *HR* OxyCODONE Immed Rel 5 MG TABLET PO PRN ×2 (08:07→20:17)
[2018-04-21] MEDS: Aspirin Enteric Coated 81 MG Tablet PO SCH (08:07)
[2018-04-21] MEDS: Metoprolol XL (24 HR) Succ 50 MG TAB.ER.24H PO SCH ×2 (08:08→20:01)
--- NOTE | 2018-04-21 08:20 | Internal Med Progress Note ---
Date of Encounter: 04/21/18 Time of Encounter: 08:14 - Assessment and plan (1) Hip fracture Current Visit: Yes Status: Acute Qualifiers: Encounter type: initial encounter Fracture type: closed Laterality: left Qualified Code(s): S72.002A - Fracture of unspecified part of neck of left femur, initial encounter for closed fracture (2) CAD (coronary artery disease) Current Visit: Yes Status: Chronic Assessment and plan: Patient has CAD s/p CABG in 01/2018, will consult cardiology for pre-op clearance , continue ASA 81 mg, BB statin. He had TTE on 03/08 showed EF 60% Qualifiers: Coronary Disease-Associated Artery/Lesion type: [place] artery [place] vs. transplanted heart: [place] heart Associated angina: without angina Qualified Code(s): I25.10 - Atherosclerotic heart disease of [place] coronary artery without angina pectoris (3) Hypertension Current Visit: No Status: Chronic Qualifiers: Hypertension type: essential hypertension Qualified Code(s): I10 - Essential (primary) hypertension (4) Obesity (BMI 30.0-34.9) Current Visit: Yes Status: Chronic (5) Hyperlipidemia Current Visit: Yes Status: Chronic Assessment and plan: continue simvastatin Qualifiers: Qualified Code(s): E78.5 - Hyperlipidemia, unspecified (6) COPD (chronic obstructive pulmonary disease) Current Visit: Yes Status: Chronic Assessment and plan: COPD stable, not on home O2, continue home inhaler Qualifiers: COPD type: unspecified COPD Qualified Code(s): J44.9 - Chronic obstructive pulmonary disease, unspecified (7) DVT prophylaxis Current Visit: Yes Status: Acute Assessment and plan: heparin Sc - Time Spent With Patient Total time spent is greater than 50% in coordination of care (as documented) at patient's floor/unit and/or counseling patient: 25 - 35 minutes - Subjective Interval history: Mr. Barnard is a 78 year old male with PMH of HTN , hyperlipidemia , CAD s/p CABG, COPD who sustained a fall while climbing a ladder and has hip fracture, Ortho was consulted by ER staff and they are planing for ORIF tomorrow. Pre-op medical clearance: Patient has history of CAD stated post CABG in January 2018, denies CHF, history of stroke, diabetes,CK D. He has good functional capacity, Mets over 4. He denies any exertional chest pain. He gets shortness of breath from COPD, but not on home O2. No diffuse wheezing. We will consult a circuit manager for preop clearance due to recent CAD stated post CABG and status. Patient reversed cardiac risk index score is 1. COPD, quit smoking 50 years ago not on home O2 no wheezing no exacerbations. Continue home nebulizer. Provide oxygen preoperatively. For ORIF, we will check EKG, CXR and UA - Constitutional Vitals: Temp Pulse Resp BP Pulse Ox 98.2 F 81 17 159/87 96 04/21/18 06:44 04/21/18 06:44 04/21/18 06:44 04/21/18 06:44 04/21/18 08:10 General appearance: Present: A&O X 3, pleasant, obese, answers questions appropriately Exam: CONSTITUTIONAL: patient appears as an age appropriate male in no acute distress. EYES Clear sclerae, bilateral pupils are equal, reactive to light. EMOI. RESPIRATORY: No accessory muscle use, bilateral clear to auscultation, no wheezing, no crackles/rales. CARDIOVASCULAR: Regular heart rate, normal S1 and S2, no murmurs GASTROINTESTINAL: bowel sounds present, soft, no tenderness. MUSCULOSKELETAL: Joints in normal range of motion, no clubbing, no edema, no cyanosis. Bilateral peripheral pulses 2+. NEUROLOGIC: CN II to XII are grossly intact, no focal neurological deficit. Internal Medicine: Result - Labs CBC & Chem 7: 04/20/18 21:03 04/20/18 21:03 Labs: Short CBC 04/20/18 Range/Units 21:03 WBC 12.6 H (4.3-11.1) K/mcL Hgb 12.7 L (12.9-16.9) g/dL Hct 38.2 (37.5-50.1) % Plt Count 228 (140-400) K/mcL BMP 04/20/18 21:03 Sodium 137 Potassium 4.5 Chloride 105 Carbon Dioxide 29 BUN 12 Creatinine 0.86 Glucose 148 H Calcium 9.4 Liver Function 04/20/18 Range/Units 21:03 Total Bilirubin 0.4 (0.3-1.0) mg/dL AST 18 (13-39) Units/L ALT 20 (7-52) Units/L Alkaline Phosphatase 121 H (34-104) Units/L Albumin 4.0 (3.5-5.7) g/dL - ABG Interpretation ABG results: PT/INR, D-dimer PT 11.8 Seconds (9.4-12.1) 04/20/18 21:03 - Impressions Impressions Hip X-Ray 04/21/18 05:39 IMPRESSION: No change in the appearance of the left hip fracture. D/ / Hadley Schrader MD / Hadley Schrader MD Interpreting Provider: Hadley Schrader MD Consult Discharge Plan - Plan Referrals: Jennifer Iyer, DIRECTOR TRIAL [Primary Care Provider] -
[2018-04-21 08:55] LABS: Bilirubin,Urine Negative (Negative); Blood,Urine Large (Negative); Clarity,Urine Turbid (Clear); Glucose,Urine (UA) Normal (Normal); Ketones,Urine Negative (Negative); Leukocyte Esterase,Urine Small (Negative); Nitrite,Urine Negative (Negative); Protein,Urine 30 mg/dL (Neg-Trace); Specific Gravity,Urine 1.026 (1.010-1.025); Urobilinogen,Urine Normal (Normal)
[2018-04-21 08:58] LABS: Bacteria,Urine None Seen per hpf (None-Few); Hyaline Casts,Urine None Seen per lpf (None-Few); RBC,Urine TNTC per hpf (0-3); Squamous Epithelial Cell,Urine Many per lpf (None-Few); WBC,Urine 15-30 per hpf (0-3)
[2018-04-21 09:00] LABS: Color,Urine Dark Yellow (Yellow)
--- NOTE | 2018-04-21 16:07 | Cardiology Consult Note ---
<Tameka Garrido - Last Filed: 04/21/18 16:04> Date of Encounter: 04/21/18 Time of Encounter: 14:30 Assessment and Plan (1) Hip fracture Current Visit: Yes Status: Acute Per cardiology: -ADmitted after fall with hip fracture. -Management per primary and orthopedic services. Qualifiers: Encounter type: initial encounter Fracture type: closed Laterality: left Qualified Code(s): S72.002A - Fracture of unspecified part of neck of left femur, initial encounter for closed fracture (2) Pre-operative cardiovascular examination Current Visit: Yes Status: Acute Per cardiology: -Pre-op risk assessment for hip fracture after mechanical fall. -Known CAD s/p CABG 01/24/18 with REESE to LAD, SVG to OM2, SVG to PDA. -01/12/18 [facility] with 95% mid LAD, 90% proximal circumflex, 90% distal RCA, 95% RPDA. -TTE 02/2018 with LVEF 60%, no segmental wall motion abnormalities. -Denies angina, however does report musculoskeletal, reproduceable pain. -ECG with no acute ischemic changes. -Able to achieve 4 mets without symptoms. -Discussed and reviewed with , patient is at low risk for cardiovascular complications in the wander-operative period. Discussion w patient/family: The assessment and plan as outlined above was discussed with the patient who expressed understanding and agreement. All questions were answered. Thank you for involving us in the care of your patient. Please call with any questions. Discussed and reviewed with . History of Present Illness Consult date: 04/21/18 Requesting physician: Lita Cedeño Consult reason: preop Chief complaint: fall, hip fracture History of present illness: Mr. Barnard is a 78 year old male with a relevant past medical history of CAD s/p CABG 01/2018, HTN, HLD, ALFONZO, COPD who presented to [facility] after a fall at home. Patient reports he was carrying ply wood up a ladder and the ladder collapsed and he landed on his left hip. Patient states prior to CABG his symptoms were chest tightness. Denies chest tightness, however had had some musculoskeletal chest pain when he "overdoes it." Patient denies worsening shortness of breath. Denies increased fatigue. Past Med Surg Social Fam HX - Past Medical History Attestation: Yes The following information was validated with the patient. Source: patient, old records reviewed Medical history: COPD, coronary artery disease, hyperlipidemia, hypertension, myocardial infarction Additional medical history: C-DIFF. LUNG NODULE. LIVER LESION. BRONCHIOLITIS Psychiatric history: no psych history - Past Surgical History Surgical History: appendectomy Additional surgical history: pins put in ankle when broke it- 5 years ago - Social History Smoking Status: Former smoker Smokeless Tobacco Status: No Alcohol use: occasionally Drug use: none Medications and Allergies Aspirin [Adult Low Dose Aspirin EC] 81 mg PO DAILY 10/15/15 [History] Albuterol Sulfate [Proventil Hfa] 1 - 2 puff IH Q6H PRN 01/11/18 [History] Ipratropium/Albuterol Neb [Duoneb] 3 ml IH Q8H PRN 01/11/18 [History] Metoprolol Succinate [Toprol Xl] 50 mg PO BID 01/11/18 [History] Simvastatin [Zocor] 40 mg PO HS 04/20/18 [History] 3 Allergy/AdvReac Type Severity Reaction Status Date / Time No Known Allergies Allergy Verified 01/24/18 08:35 All Systems Review: The remainder of the systems were reviewed and are negative - Constitutional Constitutional: other (fall) - Cardiovascular Cardiovascular: as per HPI Physical Examination Vital Signs, Last 4 Hours Temp Pulse Resp BP Pulse Ox 04/21/18 15:40 97.9 F 78 20 155/81 93 General: Conversant, No Apparent Distress HEENT: Atraumatic, Normocephaly, Mucus Membranes Moist Neck: No JVD, Normal carotid pulses Cardiac: Reg Rate and Rhythm, Normal S1 and S2, No Murmur Lungs: Normal Breath Sounds, No Wheeze, Rales, Rhonchi Neuro: Alert and responsive, No focal deficits noted Abdomen: Soft, Non-Tender Skin: No rashes noted on visualized skin Musculoskeletal: Other (Chest wall tender with palpation. ) Extremities: No Clubbing, No Cyanosis, No Edema, Normal Pulses Results 04/20/18 21:03 04/20/18 21:03 Lab Results Impressions Hip X-Ray 04/21/18 05:39 IMPRESSION: No change in the appearance of the left hip fracture. D/ / Hadley Schrader MD / Hadley Schrader MD Interpreting Provider: Hadley Schrader MD Chest X-Ray 04/21/18 08:12 IMPRESSION: Findings of COPD. No acute focal process. D/ / Eusebio Taylor MD / Eusebio Taylor MD Interpreting Provider: Eusebio Taylor MD Active Medications Acetaminophen (Tylenol) 650 mg PO Q6HR PRN PRN Reason: Mild Pain/Fever Stop: 10/20/18 20:11 Last Admin: 04/21/18 08:07 Dose: 650 mg Hydrocodone Bitart/Acetaminophen ([place] 5-325 Mg) 1 tab PO Q6HR PRN PRN Reason: Moderate Pain Stop: 10/20/18 20:11 Last Admin: 04/20/18 23:47 Dose: 1 tab Albuterol Sulfate (Albuterol Inhaler) 2 puff IH Q6H PRN PRN Reason: Shortness Of Breath Stop: 10/20/18 20:51 Albuterol/Ipratropium (Duoneb) 3 ml IH Q8H PRN PRN Reason: Shortness Of Breath Stop: 10/20/18 20:51 Last Admin: 04/21/18 05:19 Dose: 3 ml Aspirin (Aspirin Ec) 81 mg PO DAILY [facility] Stop: 10/21/18 09:01 Last Admin: 04/21/18 08:07 Dose: 81 mg Heparin Sodium (Porcine) (Heparin) 5,000 unit SQ Q12HCO [facility] Stop: 10/21/18 18:01 Sodium Chloride (0.9 % Sodium Chloride) 1,000 mls @ 75 mls/hr IVC .[id number] [facility] Stop: 04/22/18 10:52 Last Admin: 04/21/18 14:57 Dose: 75 mls/hr Metoprolol Succinate (Toprol Xl) 50 mg PO BID [facility] Stop: 10/20/18 21:01 Last Admin: 04/21/18 08:08 Dose: 50 mg Naloxone HCl (Narcan) 0.4 mg IVP Q2MIN PRN PRN Reason: SEE COMMENTS Stop: 10/20/18 20:11 Ondansetron HCl (Zofran) 4 mg IVP Q6HR PRN; Protocol PRN Reason: Nausea And Vomiting Stop: 10/21/18 04:43 Last Admin: 04/21/18 14:57 Dose: 4 mg Oxycodone HCl (Roxicodone) 10 mg PO Q6HR PRN PRN Reason: Severe Pain Stop: 10/20/18 20:11 Last Admin: 04/21/18 08:07 Dose: 10 mg Simvastatin (Zocor) 40 mg PO HS PAM PRN Reason: Protocol Stop: 10/20/18 21:01 Last Admin: 04/20/18 21:32 Dose: 40 mg - Imaging and Cardiology Chest Xray: report reviewed Stress Test: report reviewed Echo: report reviewed Cardiac cath: report reviewed - EKG Interpretation EKG results cardiology: personally reviewed (ECG with SR, HR 80.), other (Not on telemetry.) Consult Discharge Plan - Plan Referrals: Jennifer Iyer, SERVICE PROVIDER [Primary Care Provider] - <Geovanny Hernández - Last Filed: 04/21/18 22:47> Date of Encounter: 04/21/18 Time of Encounter: 21:00 - Attending Attestation I have personally performed a face to face evaluation on this patient. I have reviewed and agree with the care plan. History and Exam by me shows: CC: Pain in left hip PT reports he was climbing up a ladder, slipped and fell approximatly four to six feet, landed on left hip, with immediate pain, inability to stand. He denies chest pain, pressure or shortness of breath since he underwent CABG x 3 . He has recovered from median sternotomy, with minimal chest discomfort only with lifting. PMH: reviewed ROS: reviewed PE: pt seen and examined, agree with findings as documented. IMP;Plan: 1. Left hip fracture, anticipate surgical intervention in AM, pt is at low cardiovascular risk for planned procedure 2. CAD: severe three vessel disease, post surgical revascularization 01/30 with resolution of previous anginal chest pain, will repeat EKG post op, available if any questions or can be of assistance. 3. hypertension: well controlled on current meds. 4. Hyperlipidemia: on statin tx Assessment and Plan Discussion w patient/family: The assessment and plan as outlined above was discussed with the patient and/or family members who expressed understanding and agreement. All questions were answered. Thank you for involving us in the care of your patient. Please call with any questions. History of Present Illness History of present illness: Mr. Barnard is a 78 year old male All Systems Review: The remainder of the systems were reviewed and are negative Physical Examination Vital Signs, Last 4 Hours Temp Pulse Resp BP Pulse Ox 04/21/18 20:10 99.9 F H 82 22 166/81 93 Results 04/20/18 21:03 04/20/18 21:03
[2018-04-21] MEDS: *HR* Heparin 5,000 UNIT/ML VIAL SQ SCH (17:12)
[2018-04-21] MEDS: *HR* HYDROcodone/Acet 5/325 mg TABLET PO PRN (21:42)
[2018-04-22] MEDS: *HR* OxyCODONE Immed Rel 5 MG TABLET PO PRN ×2 (03:22→11:09)
[2018-04-22] MEDS: 0.9 % Sodium Chloride 1,000 ML IVC SCH (03:22)
[2018-04-22] MEDS: *HR* Heparin 5,000 UNIT/ML VIAL SQ SCH (05:10)
[2018-04-22] MEDS: *HR* HYDROcodone/Acet 5/325 mg TABLET PO PRN (07:47)
[2018-04-22] MEDS: Ipratropium/Albuterol Neb 3 ML IH SCH ×5 (07:55→20:08)
[2018-04-22 09:39] LABS: Hematocrit 34.3 % (37.5-50.1)
[2018-04-22 09:44] LABS: Hemoglobin 10.7 g/dL (12.9-16.9)
[2018-04-22] MEDS: Metoprolol XL (24 HR) Succ 50 MG TAB.ER.24H PO SCH ×2 (10:29→19:37)
[2018-04-22] MEDS: Aspirin Enteric Coated 81 MG Tablet PO SCH (10:31)
--- NOTE | 2018-04-22 11:51 | Anesthesia Evaluation PreOp ---
Date of Encounter: 04/22/18 Time of Encounter: 12:00 - Past History Planned Operation: TFN Left Hip Cardiac History: [place] (), HTN, Hyperlipidemia, Cardiac Surgery (CABG ) Pulmonary History: Former smoker, COPD LOG LOADER HELPER History: Denies Any Significant HX Other Medical History: Denies Any Significant HX Anesthesia History: No Prior Anesthetic Complications Alcohol Use: occasionally Drug use: none Medications and Allergies Aspirin [Adult Low Dose Aspirin EC] 81 mg PO DAILY 10/15/15 [History] Albuterol Sulfate [Proventil Hfa] 1 - 2 puff IH Q6H PRN 01/11/18 [History] Ipratropium/Albuterol Neb [Duoneb] 3 ml IH Q8H PRN 01/11/18 [History] Metoprolol Succinate [Toprol Xl] 50 mg PO BID 01/11/18 [History] Simvastatin [Zocor] 40 mg PO HS 04/20/18 [History] 3 Allergy/AdvReac Type Severity Reaction Status Date / Time No Known Allergies Allergy Verified 01/24/18 08:35 - Meds/Allergy Pre-op Review Medications Reviewed: Yes Allergies Reviewed: Yes Beta Blockers on Current Med List: No Anesthesia Results - Labs 04/22/18 08:41 04/20/18 21:03 Laboratory Tests 04/20/18 04/20/18 04/20/18 21:03 21:03 21:03 Hgb Hct Plt Count 228 PT 11.8 INR 1.0 Sodium 137 Potassium 4.5 BUN 12 Creatinine 0.86 04/22/18 08:41 Hgb 10.7 L D Hct 34.3 L Plt Count PT INR Sodium Potassium BUN Creatinine - Imaging EKG: report reviewed (SR) Additional studies: EF 60% from -2016 Heart Cath Anesthesia Exam Vital Signs/O2 Sat/Glucose, Most Current Temp Pulse Resp BP Pulse Ox 04/22/18 11:37 99.2 F 83 18 151/86 94 04/22/18 08:00 18 91 Height: 5'11 Weight: 223 lbs NPO (# of Hours): [place] Pain Scale: 0 - HEENT Pupil (Motor): Pupils equal, EOMI Mallampati: II Teeth: Edentulous Oral Opening: Less than or equal to 3 - LOG LOADER HELPER LOC: Oriented LOG LOADER HELPER Motor: Normal RUE, Normal LUE, Normal RLE, Normal LLE, Normal Face LOG LOADER HELPER Sensory: Normal: RUE, LUE, RLE, LLE, Face - Cardiac Rhythm: Regular Murmur: None JVD: No Carotid Bruit: No - Pulmonary Breath Sounds: bilateral Clear Respiratory Effort: Symmetrical Anesthesia Assess/Plan ASA Score: 3 (CAD HTN COPD) Modified Merrick Scale for Level of Consciousness: Cooperative, oriented, and tranquil Anesthetic Plan: General Monitoring Plan: Standard Monitors Recovery Plan: PACU (Discussed GA, agrees to proceed)
[2018-04-22] MEDS ORDERED: Albuterol 2.5 MG/3 ML NEBULIZER IH ONE ×2 (11:55→18:09)
[2018-04-22] MEDS ORDERED: ceFAZolin 2,000 MG in Water for inj. (sterile) 20 ML 20 ML IVP ONE (11:55)
[2018-04-22] MEDS ORDERED: Famotidine 20 MG/2 ML VIAL ONE (11:59)
[2018-04-22] MEDS ORDERED: Acetaminophen IV 1,000 MG/100 ML INFUS..BTL ONE (11:59)
[2018-04-22] MEDS ORDERED: *HR* Midazolam HCl 2 MG/2 ML VIAL ONE (13:08)
[2018-04-22] MEDS ORDERED: Ondansetron 4 MG/2 ML VIAL ONE (13:08)
[2018-04-22] MEDS ORDERED: Dexamethasone 4 MG/ML VIAL ONE (13:08)
[2018-04-22] MEDS ORDERED: *HR* Propofol 200 MG/20 ML VIAL IVP ONE (13:08)
[2018-04-22] MEDS ORDERED: Ketorolac 30 MG/ML VIAL ONE (13:08)
[2018-04-22] MEDS ORDERED: *HR* Succinylcholine 200 MG/10 ML VIAL IVP ONE (13:08)
[2018-04-22] MEDS ORDERED: *HR* FentaNYL (PF) 100 MCG/2 ML VIAL ONE (13:08)
[2018-04-22] MEDS ORDERED: *HR* HYDROmorphone (PF) 1 MG/ML SYRINGE IVP PRN (13:29)
[2018-04-22] MEDS ORDERED: *HR* Labetalol 20 MG/4 ML SYRINGE IVP PRN (13:29)
[2018-04-22] MEDS ORDERED: *HR* Promethazine 25 MG/ML VIAL IVP PRN (13:29)
--- NOTE | 2018-04-22 13:31 | Orthopedic Operative Note ---
Date of procedure: 04/22/18 Pre-op diagnosis: Displaced left intertrochanteric hip fracture Post-op diagnosis: same Procedure: Procedure: Left hip open reduction intramedullary nail fixation Estimated blood loss: 50 cc Hardware: Metal: 11 x 1 30 Synthes TFN, 110 helical blade, 38 distal locking bolt Operative procedure: The patient was brought to the operating room and placed on the operating room table. After general anesthesia was administered the well leg was place in the well leg lugo and the operative leg was placed in the fracture leg lugo. All pressure points were padded appropriately. The operative extremity was prepped and draped in the sterile surgical fashion patient received IV antibiotic prior to skin incision. A standard direct lateral approach was made over the entry point of the greater trochanter, the incision was made through the skin and subcutaneous tissue hemostasis was obtained with Bovie cautery. Using careful sharp dissection the fascia was identified and incised, flouroscopic assistance was used to identify the entry point. The guidepin was placed at the entry point using fluroscopic assistance, it was over reamed with the proximal reamer. The 11 x 130 degree nail was placed through the entry hole, across the fracture site into the distal fragment. the position was confirmed with fluroscopy. A guide pin was placed through the proximal locking guide from the lateral femur through the nail across the fracture site into the femoral head, it was over reamed with the reamer. The 110 mm helical blade was placed over the guide pin through the nail into the femoral head, locked in place with the proximal locking bolt. Distal locking bolt was placed through the 38 mm distal locking guide position of hardware and fracture reduction found to be acceptable with fluroscopic assistance. The wound was irrigated. Fascia was closed with a running #2 PDS suture. The deep tissue was irrigated and closed deep with #1 PDS suture superficially with 0 PDS suture and skin was closed with Dermabond. The patient was placed in a sterile dressing The patient was extubated and transferred to the recovery room in stable condition. Anesthesia: GETA Surgeon: Ulices Ambrocio Was there an staffing assistant present: No Estimated blood loss (cc): 50 Condition: stable Disposition: PACU
--- NOTE | 2018-04-22 14:37 | Anesthesia Evaluation Post Op ---
Date of Encounter: 04/22/18 Time of Encounter: 14:40 - Vital Signs Vital Signs: Vital Signs/O2 Sat/Glucose, Most Current Temp Pulse Resp BP Pulse Ox 04/22/18 14:30 98.9 F 75 14 162/87 95 04/22/18 14:20 98.9 F 75 14 159/96 100 04/22/18 14:10 76 12 159/92 92 04/22/18 14:00 76 10 144/82 95 04/22/18 13:50 97.9 F 78 12 172/87 99 04/22/18 11:37 99.2 F 83 18 151/86 94 - Lungs Lungs: Clear Ascult./Percussion - Airway Airway: Non-obstructed - Cardiovascular Regular Rate - Mental Status Mental Status: Alert & Oriented, Answers Appropriately - Pain Pain Scale: 0 - Nausea Vomiting Nausea Vomiting: Not Present - Hydration Hydration: NPO - Discharge PostOp Status: Transfer Patient to floor
--- NOTE | 2018-04-22 16:57 | Internal Med Progress Note ---
Date of Encounter: 04/22/18 Time of Encounter: 08:56 - Assessment and plan (1) Hip fracture Current Visit: Yes Status: Acute Assessment and plan: Complaint to have surgery today Appreciate Cardiology consult, patient is cleared with low risk Qualifiers: Encounter type: initial encounter Fracture type: closed Laterality: left Qualified Code(s): S72.002A - Fracture of unspecified part of neck of left femur, initial encounter for closed fracture (2) CAD (coronary artery disease) Current Visit: Yes Status: Chronic Assessment and plan: Patient has CAD s/p CABG in 01/2018, will consult cardiology for pre-op clearance , continue ASA 81 mg, BB statin. He had TTE on 03/08 showed EF 60% Qualifiers: Coronary Disease-Associated Artery/Lesion type: [place] artery [place] vs. transplanted heart: [place] heart Associated angina: without angina Qualified Code(s): I25.10 - Atherosclerotic heart disease of [place] coronary artery without angina pectoris (3) Hypertension Current Visit: No Status: Chronic Qualifiers: Hypertension type: essential hypertension Qualified Code(s): I10 - Essential (primary) hypertension (4) Obesity (BMI 30.0-34.9) Current Visit: Yes Status: Chronic (5) Hyperlipidemia Current Visit: Yes Status: Chronic Qualifiers: Qualified Code(s): E78.5 - Hyperlipidemia, unspecified (6) COPD (chronic obstructive pulmonary disease) Current Visit: Yes Status: Chronic Assessment and plan: COPD stable, not on home O2, continue home inhaler contiinue scheduled nebub Qualifiers: COPD type: unspecified COPD Qualified Code(s): J44.9 - Chronic obstructive pulmonary disease, unspecified (7) DVT prophylaxis Current Visit: Yes Status: Acute - Time Spent With Patient Total time spent is greater than 50% in coordination of care (as documented) at patient's floor/unit and/or counseling patient: - Subjective Interval history: Mr. Barnard is a 78 year old male with PMH of HTN , hyperlipidemia , CAD s/p CABG, COPD who sustained a fall while climbing a ladder and has hip fracture, Ortho was consulted by ER staff and they are planing for ORIF tomorrow. Pre-op medical clearance: Patient has history of CAD stated post CABG in January 2018, denies CHF, history of stroke, diabetes,CK D. He has good functional capacity, Mets over 4. He denies any exertional chest pain. He gets shortness of breath from COPD, but not on home O2. No diffuse wheezing. We will consult a tank builder and erector for preop clearance due to recent CAD stated post CABG and status. Patient reversed cardiac risk index score is 1. COPD, quit smoking 50 years ago not on home O2 no wheezing no exacerbations. Continue home nebulizer. Provide oxygen preoperatively. For ORIF, EKG, CXR and UA are unremarkable cardiology cleared him for OR with low risk Patient is doing well, had a good sleep last night. He is ready for surgery. He does have some shortness of breath, due to not getting DuoNeb, I called the nurse to give her DuoNeb as scheduled - Constitutional Vitals: Temp Pulse Resp BP Pulse Ox 97.6 F 74 18 170/96 96 04/22/18 15:15 04/22/18 15:15 04/22/18 15:28 04/22/18 15:15 04/22/18 15:28 General appearance: Present: A&O X 3, pleasant, obese, answers questions appropriately Exam: CONSTITUTIONAL: patient appears as an age appropriate male in no acute distress. EYES Clear sclerae, bilateral pupils are equal, reactive to light. EMOI. RESPIRATORY: No accessory muscle use, bilateral clear to auscultation, no wheezing, no crackles/rales. CARDIOVASCULAR: Regular heart rate, normal S1 and S2, no murmurs GASTROINTESTINAL: bowel sounds present, soft, no tenderness. MUSCULOSKELETAL: Joints in normal range of motion, no clubbing, no edema, no cyanosis. Bilateral peripheral pulses 2+. NEUROLOGIC: CN II to XII are grossly intact, no focal neurological deficit. Internal Medicine: Result - Labs CBC & Chem 7: 04/22/18 08:41 04/20/18 21:03 Labs: Short CBC 04/22/18 Range/Units 08:41 Hgb 10.7 L D (12.9-16.9) g/dL Hct 34.3 L (37.5-50.1) % - ABG Interpretation ABG results: PT/INR, D-dimer PT 11.8 Seconds (9.4-12.1) 04/20/18 21:03 - Impressions Impressions Hip X-Ray 04/22/18 07:30 IMPRESSION: 1. ORIF of the left hip without postsurgical complication. D/ / 04/22/2018 14:22:28 Solomon Perez MD / holden Interpreting Provider: Solomon Perez MD Fluoroscopy 04/22/18 13:04 IMPRESSION: Intraprocedural fluoroscopic spot images as above. See separate procedure report for more information. D/ / 04/22/2018 14:02:48 Solomon Perez MD / harsha Interpreting Provider: Solomon Perez MD Hip X-Ray 04/22/18 13:04 IMPRESSION: Intraprocedural fluoroscopic spot images as above. See separate procedure report for more information. D/ / 04/22/2018 14:02:48 Solomon Perez MD / harsha Interpreting Provider: Solomon Perez MD - VTE Documentation of Mechanical Device: Venous foot pump, device Consult Discharge Plan - Plan Referrals: Jennifer Iyer WOOL BUYER [Primary Care Provider] -
[2018-04-22] MEDS ORDERED: Naloxone 0.4 MG/ML INJ IVP PRN (18:09)
[2018-04-22] MEDS ORDERED: Ondansetron 4 MG/2 ML VIAL IVP PRN (18:09)
[2018-04-22] MEDS ORDERED: Acetaminophen 325 MG TABLET PO PRN (18:09)
[2018-04-22] MEDS ORDERED: Ipratropium/Albuterol Neb 3 ML IH PRN (18:09)
[2018-04-23] MEDS: Ipratropium/Albuterol Neb 3 ML IH SCH ×6 (00:04→19:54)
[2018-04-23] MEDS: *HR* OxyCODONE Immed Rel 5 MG TABLET PO PRN (03:49)
[2018-04-23] MEDS: *HR* Heparin 5,000 UNIT/ML VIAL SQ SCH ×2 (05:31→17:30)
[2018-04-23] MEDS: *HR* HYDROcodone/Acet 5/325 mg TABLET PO PRN ×2 (05:32→23:07)
--- NOTE | 2018-04-23 06:38 | Orthopedics Progress Note ---
Date of Encounter: 04/23/18 Time of Encounter: 06:37 Subjective Interval history: Patient was seen this morning doing well without complaints. Afebrile vital signs stable. Operative extremity: Neurovascularly intact Dressing clean dry and intact Calves nontender Assessment and plan: Continue with postoperative care hemoglobin 10.7 Objective Vital signs: Vital Signs Temp Pulse Resp BP Pulse Ox 04/23/18 04:13 18 96 04/23/18 03:38 98.8 F 77 18 171/88 96 04/22/18 23:03 98.1 F 88 18 137/75 94 04/22/18 20:12 16 94 04/22/18 19:13 98.3 F 77 16 161/92 96 04/22/18 18:55 97.9 F 76 164/87 97 04/22/18 17:30 98.0 F 75 156/95 97 04/22/18 16:00 98.1 F 77 159/79 95 04/22/18 15:28 18 96 04/22/18 15:15 97.6 F 74 12 170/96 97 04/22/18 15:06 96.4 F L 14 160/87 97 04/22/18 14:30 98.9 F 75 14 162/87 95 04/22/18 14:20 98.9 F 75 14 159/96 100 04/22/18 14:10 76 12 159/92 92 04/22/18 14:00 76 10 144/82 95 04/22/18 13:50 97.9 F 78 12 172/87 99 04/22/18 11:37 99.2 F 83 18 151/86 94 04/22/18 08:00 18 91 04/22/18 06:40 98.2 F 85 18 159/73 93 Intake and Output 04/22/18 04/22/18 04/23/18 15:59 23:59 07:59 Intake Total 500 / 500 100 / 100 Output Total 300 / 300 150 / 150 300 / 300 Balance -300 / -300 350 / 350 -200 / -200 Intake: IV Fluids 100 / 100 100 / 100 Ancef 2,000 MG In 0.9 % Sodium 100 / 100 100 / 100 Chloride 100 ML @ 200 mls/hr IVPB Q8H [facility] Rx#:[id number] Oral 400 / 400 0 / 0 Output: Urine 175 / 175 Estimated Blood Loss 50 / 50 Catheter 250 / 250 150 / 150 125 / 125 Other: Weight 102.4 kg Patient Weight 04/23/18 23:59 Weight 102.4 kg - Labs CBC & BMP: 04/22/18 08:41 04/20/18 21:03 Labs: Abnormal lab results WBC 12.6 K/mcL (4.3-11.1) H 04/20/18 21:03 Hgb 10.7 g/dL (12.9-16.9) L D 04/22/18 08:41 Hct 34.3 % (37.5-50.1) L 04/22/18 08:41 Glucose 148 mg/dL (70-105) H 04/20/18 21:03 Alkaline Phosphatase 121 Units/L (34-104) H 04/20/18 21:03 Cholesterol 212 mg/dL (< 200) H 04/21/18 00:49 LDL Cholesterol, Calc 154 mg/dL (0-99) H 04/21/18 00:49 Urine Clarity Turbid (Clear) A 04/21/18 08:50 Ur Specific [place] 1.026 (1.010-1.025) H 04/21/18 08:50 Urine Protein 30 mg/dL (Neg-Trace) H 04/21/18 08:50 Urine Blood Large (Negative) H 04/21/18 08:50 Ur Leukocyte Esterase Small (Negative) H 04/21/18 08:50 Urine Microscopic RBC TNTC per hpf (0-3) H 04/21/18 08:50 Urine Microscopic WBC 15-30 per hpf (0-3) H 04/21/18 08:50 Ur Squamous Epith Cells Many per lpf (None-Few) H 04/21/18 08:50 Ur Culture Indicated? NO. (NO) A 04/21/18 08:50 - VTE Documentation of Mechanical Device: Venous foot pump, device Consult Discharge Plan - Plan Referrals: Jennifer Iyer, MEASUREMENT AND VERIFICATION ENGINEER [Primary Care Provider] -
[2018-04-23 07:56] LABS: Hematocrit 32.3 % (37.5-50.1); Hemoglobin 10.7 g/dL (12.9-16.9)
[2018-04-23] MEDS: Aspirin Enteric Coated 81 MG Tablet PO SCH (09:43)
[2018-04-23] MEDS: Metoprolol XL (24 HR) Succ 50 MG TAB.ER.24H PO SCH ×2 (09:43→19:30)
--- NOTE | 2018-04-23 12:45 | Event Note ---
Date of Encounter: 04/23/18 Time of Encounter: 12:42 PCR - POD#1 - Left Hip IM Nail 04/23 - PWB only Patient alseep. Hospitalist Admit. Afebrile, vital signs stable. Labs reviewed. H/H - stable, asymptomatic Pain control: adequate per nurse report Participating in PT. PWB only Assessment and plan: Continue with postoperative care Discharge plan: PT recommending ECF Continuity needed with following instructions: Opsite dressing, leave intact until first post-operative visit. If dressing becomes >50% saturated, contact office, remove dressing and place appropriate dressing in its place. Do not allow for dressing to get wet. Zipline/Ashley in place, plan to remove at post-operative day #14-16. Hip Precautions x 6 weeks. PWB ONLY Apply cold therapy wrap 3-6x/day for 20 minutes at a time. Encourage ambulation throughout the day Use Incentive spirometer 10x/hour. Elevate affected extremity above heart as tolerated. Stable from orthopedic standpoint
--- NOTE | 2018-04-23 16:37 | Internal Med Progress Note ---
Date of Encounter: 04/23/18 Time of Encounter: 15:00 - Assessment and plan (1) Hip fracture Current Visit: Yes Status: Acute Assessment and plan: s/p L hip ORIF POD1 PT with PWB status analgesics for ECF placement Qualifiers: Encounter type: initial encounter Fracture type: closed Laterality: left Qualified Code(s): S72.002A - Fracture of unspecified part of neck of left femur, initial encounter for closed fracture (2) Hypertension Current Visit: No Status: Chronic Assessment and plan: stable, continue Toprol XL Qualifiers: Hypertension type: essential hypertension Qualified Code(s): I10 - Essential (primary) hypertension (3) CAD (coronary artery disease) Current Visit: Yes Status: Chronic Assessment and plan: Patient has CAD s/p CABG in 01/2018, asymptomatic Continue ASA 81 mg, BB, statin Qualifiers: Coronary Disease-Associated Artery/Lesion type: [place] artery [place] vs. transplanted heart: [place] heart Associated angina: without angina Qualified Code(s): I25.10 - Atherosclerotic heart disease of [place] coronary artery without angina pectoris (4) Hyperlipidemia Current Visit: Yes Status: Chronic Assessment and plan: continue zocor Qualifiers: Qualified Code(s): E78.5 - Hyperlipidemia, unspecified (5) COPD (chronic obstructive pulmonary disease) Current Visit: Yes Status: Chronic Assessment and plan: prn duoneb Qualifiers: COPD type: unspecified COPD Qualified Code(s): J44.9 - Chronic obstructive pulmonary disease, unspecified (6) DVT prophylaxis Current Visit: Yes Status: Acute Assessment and plan: sq heparin - Time Spent With Patient Total time spent is greater than 50% in coordination of care (as documented) at patient's floor/unit and/or counseling patient: - Subjective Interval history: s/p L hip ORIF yesterday, pain is tolerable. Engaged in PT today with PWB status. No chest pain, SOB, palpitation. - Constitutional Vitals: Temp Pulse Resp BP Pulse Ox 98.1 F 82 18 149/79 96 04/23/18 15:34 04/23/18 15:34 04/23/18 15:52 04/23/18 15:34 04/23/18 15:52 General appearance: Present: A&O X 3, pleasant, obese, answers questions appropriately Exam: General: Alert and oriented HEENT:EOM, pupils equal, round, and reactive. Cardiovascular:Normal S1 & S2, no murmurs or gallops. No JVD. Pulse regular. Lungs:Normal breath sounds, no wheezes or crackles. Abdomen:Soft, non-tender, no rigidity. Extremities:L hip dressing dry and clean, calves supple Neurological:Normal cognition and motor skills. Skin:Normal color, no rash, no lesions. Pulses:Carotid and radial pulses normal +2. Rest of the physical exam is non-contributory Internal Medicine: Result - Labs CBC & Chem 7: 04/23/18 07:39 04/20/18 21:03 Labs: Short CBC 04/23/18 Range/Units 07:39 Hgb 10.7 L (12.9-16.9) g/dL Hct 32.3 L (37.5-50.1) % - ABG Interpretation ABG results: PT/INR, D-dimer PT 11.8 Seconds (9.4-12.1) 04/20/18 21:03 - VTE Documentation of Mechanical Device: Venous foot pump, device Consult Discharge Plan - Plan Referrals: Jennifer Iyer, ANTI AIR WARFARE OPERATIONS OFFICER [Primary Care Provider] -
[2018-04-24] MEDS: *HR* OxyCODONE Immed Rel 5 MG TABLET PO PRN ×2 (00:20→08:55)
[2018-04-24 01:13] LABS: Basophils % 0.2 %; Eosinophils # 0.2 K/mcL (0.0-0.6); Eosinophils % 2.7 %; Hematocrit 30.5 % (37.5-50.1); Hemoglobin 9.9 g/dL (12.9-16.9); Immature Granulocytes % 0.7 % (0-4); Lymphocytes # 1.3 K/mcL (0.6-4.6); Lymphocytes % 15.7 %; Mean Corpuscular HGB Conc 32.5 g/dL (31.6-35.5); Mean Corpuscular Hemoglobin 28.1 pg (28.0-33.3); Mean Corpuscular Volume 86.6 fL (83.0-100.0); Monocytes % 12.2 %; Neutrophils # 5.6 K/mcL (1.6-8.9); Platelet Count 184 K/mcL (140-400); Red Blood Count 3.52 M/mcL (4.19-5.50); Red Cell Distribution Width 13.8 % (11.5-14.5); Segmented Neutrophils % 68.5 %
[2018-04-24 01:38] LABS: BUN/Creatinine Ratio 20 (6-26); Blood Urea Nitrogen 16 mg/dL (8-23); Calcium 8.5 mg/dL (8.6-10.3); Carbon Dioxide 29 mEq/L (23-29); Chloride 105 mEq/L (98-107); Glucose 132 mg/dL (70-105); Osmolality,Calculated 293 (280-300); Potassium 3.4 mEq/L (3.5-5.1); Sodium 140 mEq/L (136-145); eGFR For African Americans > 60 (> 60); eGFR For Non-African Americans > 60 (> 60)
[2018-04-24] MEDS ORDERED: Ipratropium/Albuterol Neb 3 ML IH PRN (04:08)
[2018-04-24] MEDS: *HR* HYDROcodone/Acet 5/325 mg TABLET PO PRN ×2 (05:25→13:27)
[2018-04-24] MEDS: *HR* Heparin 5,000 UNIT/ML VIAL SQ SCH (05:26)
--- NOTE | 2018-04-24 07:43 | Orthopedics Progress Note ---
Date of Encounter: 04/24/18 Time of Encounter: 07:43 Subjective Interval history: Patient was seen this morning doing well without complaints. Afebrile vital signs stable. Operative extremity: Neurovascularly intact Dressing clean dry and intact Calves nontender Assessment and plan: Continue with postoperative care orthopedically stable for discharge Objective Vital signs: Vital Signs Temp Pulse Resp BP Pulse Ox 04/24/18 05:30 97.8 F 81 16 173/89 96 04/24/18 04:05 17 94 04/23/18 23:18 98.1 F 90 16 190/91 97 04/23/18 20:13 98.0 F 82 16 160/86 96 04/23/18 19:54 18 95 04/23/18 15:52 18 96 04/23/18 15:34 98.1 F 82 16 149/79 96 04/23/18 11:31 16 89 04/23/18 11:00 98.4 F 84 18 158/83 93 Intake and Output 04/23/18 04/23/18 04/24/18 15:59 23:59 07:59 Intake Total 360 / 360 240 / 240 Output Total 400 / 400 300 / 300 Balance 360 / 360 -160 / -160 -300 / -300 Intake: Oral 360 / 360 240 / 240 Output: Urine 400 / 400 300 / 300 Other: Meal Lunch Dinner Percent of Meal Consumed 95% 100% - Labs CBC & BMP: 04/24/18 01:03 04/24/18 01:03 Labs: Abnormal lab results RBC 3.52 M/mcL (4.19-5.50) L 04/24/18 01:03 Hgb 9.9 g/dL (12.9-16.9) L 04/24/18 01:03 Hct 30.5 % (37.5-50.1) L 04/24/18 01:03 Potassium 3.4 mEq/L (3.5-5.1) L 04/24/18 01:03 Glucose 132 mg/dL (70-105) H 04/24/18 01:03 Calcium 8.5 mg/dL (8.6-10.3) L 04/24/18 01:03 Alkaline Phosphatase 121 Units/L (34-104) H 04/20/18 21:03 Cholesterol 212 mg/dL (< 200) H 04/21/18 00:49 LDL Cholesterol, Calc 154 mg/dL (0-99) H 04/21/18 00:49 Urine Clarity Turbid (Clear) A 04/21/18 08:50 Ur Specific [place] 1.026 (1.010-1.025) H 04/21/18 08:50 Urine Protein 30 mg/dL (Neg-Trace) H 04/21/18 08:50 Urine Blood Large (Negative) H 04/21/18 08:50 Ur Leukocyte Esterase Small (Negative) H 04/21/18 08:50 Urine Microscopic RBC TNTC per hpf (0-3) H 04/21/18 08:50 Urine Microscopic WBC 15-30 per hpf (0-3) H 04/21/18 08:50 Ur Squamous Epith Cells Many per lpf (None-Few) H 04/21/18 08:50 Ur Culture Indicated? NO. (NO) A 04/21/18 08:50 - VTE Documentation of Mechanical Device: Venous foot pump, device Consult Discharge Plan - Plan Referrals: Jennifer Iyer, MEDICAL ASSISTANT INTERNAL MEDICINE [Primary Care Provider] -
[2018-04-24] MEDS: Metoprolol XL (24 HR) Succ 50 MG TAB.ER.24H PO SCH (08:42)
[2018-04-24] MEDS: Aspirin Enteric Coated 81 MG Tablet PO SCH (08:43)
[2018-04-24] MEDS ORDERED: Ipratropium/Albuterol Neb 3 ML IH SCH (10:00)
[2018-04-24 11:16] VITALS: BP 158/81
--- NOTE | 2018-04-24 11:28 | Discharge Summary ---
Orders not resulted at time of discharge: Pending orders 04/20/18 20:26 Urinalysis reflex Microscopic [URIN] Routine 04/21/18 08:20 EKG [ECG 12 lead ECG] [ECG] Routine Date of Encounter: 04/24/18 Time of Encounter: 11:30 - Discharge Diagnosis (1) Hip fracture Priority: Primary Status: Acute Qualifiers: Encounter type: initial encounter Fracture type: closed Laterality: left Qualified Code(s): S72.002A - Fracture of unspecified part of neck of left femur, initial encounter for closed fracture (2) Hypertension Priority: Secondary Status: Chronic Qualifiers: Hypertension type: essential hypertension Qualified Code(s): I10 - Essential (primary) hypertension (3) CAD (coronary artery disease) Priority: Secondary Status: Chronic Qualifiers: Coronary Disease-Associated Artery/Lesion type: [place] artery [place] vs. transplanted heart: [place] heart Associated angina: without angina Qualified Code(s): I25.10 - Atherosclerotic heart disease of [place] coronary artery without angina pectoris (4) Hyperlipidemia Priority: Secondary Status: Chronic Qualifiers: Qualified Code(s): E78.5 - Hyperlipidemia, unspecified (5) COPD (chronic obstructive pulmonary disease) Priority: Secondary Status: Chronic Qualifiers: COPD type: unspecified COPD Qualified Code(s): J44.9 - Chronic obstructive pulmonary disease, unspecified (6) DVT prophylaxis Priority: Secondary Status: Acute Hospital course: Mr. Barnard is a 78 year old male with PMHx of CAD s/p CABG presented to the ED after falling from a ladder. Suffered L intertrochanteric fracture for which he underwent intramedullary nail fixation on 04/22. Post-op course has been uncomplicated and he is discharged to [facility] for further rehab. - Time Spent with Patient Total time spent providing and/or coordinating discharge services: - Discharge Medications Home Medications: Aspirin [Adult Low Dose Aspirin EC] 81 mg PO DAILY 10/15/15 [History] Albuterol Sulfate [Proventil Hfa] 1 - 2 puff IH Q6H PRN 01/11/18 [History] Ipratropium/Albuterol Neb [Duoneb] 3 ml IH Q8H PRN 01/11/18 [History] Metoprolol Succinate [Toprol Xl] 50 mg PO BID 01/11/18 [History] Simvastatin [Zocor] 40 mg PO HS 04/20/18 [History] Allergies/Adverse Reactions: 3 Allergy/AdvReac Type Severity Reaction Status Date / Time No Known Allergies Allergy Verified 01/24/18 08:35 Date of admission: 04/20/18 19:04 Primary care physician: Jennifer Iyer CNP Consults: 04/20/18 20:30 Consult to Physician [CONS] Routine Consulting Provider: Ulices Ambrocio Reason for Consult: Hip FX Time Notified: 20:48 Call Completed: Yes 04/21/18 08:11 Consult to Cardiology [CONS] Routine Comment: Consulting Provider: Cardiology Edna Reason for Consult: CAD s/p CABG in 01/2018, pre-op clearance Dr Hernández Call Completed: Yes 04/22/18 18:09 Consult to Occupational Therapy [CONS] Routine Comment: Evaluate, develop and implement POC Reason for Consult: post hip surgery Does patient have active BEDREST order?: No Is patient medically & hemodynamically stable?: Yes Patient assessed for mobility or mobilized this visit?: Yes Consult to Orthopedic Navigator [CONS] [CONS] Routine Consult to Physical Therapy [CONS] Routine Comment: Evaluate, develop and implement POC Reason for Consult: post hip surgery Does patient have active BEDREST order?: No Is patient medically & hemodynamically stable?: Yes Patient assessed for mobility or mobilized this visit?: Yes Consult to Business Loan Processor [CONS] Routine Reason for SW Consult: post -op hip fracture RT Post Op Consult [CONS] Routine - Constitutional Vitals: Temp Pulse Resp BP Pulse Ox 97.9 F 74 18 158/81 96 04/24/18 11:16 04/24/18 11:16 04/24/18 11:16 04/24/18 11:16 04/24/18 11:16 General appearance: Present: A&O X 3, pleasant, obese, answers questions appropriately Exam: General: Alert and oriented HEENT:EOM, pupils equal, round, and reactive. Cardiovascular:Normal S1 & S2, no murmurs or gallops. No JVD. Pulse regular. Lungs:Normal breath sounds, no wheezes or crackles. Abdomen:Soft, non-tender, no rigidity. Extremities:L hip dressing dry and clean, calves supple Neurological:Normal cognition and motor skills. Skin:Normal color, no rash, no lesions. Pulses:Carotid and radial pulses normal +2. Rest of the physical exam is non-contributory - Patient Status Disposition: Transfer Inpatient Rehab Fac Condition: Fair Functional capacity at discharge: uses cane/walker Overall status at discharge: patient is progressing back to baseline - Discharge Instructions Follow Up With: Jennifer Iyer MOPPER [Primary Care Provider] - - Diet and Activity Activity: as per physical therapy Diet: regular diet - VTE Documentation of Mechanical Device: Venous foot pump, device
== END 2018-04-24 14:11 | DRG 482 ==
LOC: SUATTDRO 19:04 → 3NENU 19:04
PROVIDERS: ADMIT Orthopaedic Surgery; ATTEND Internal Medicine